=== PATIENT | female | born 1930 | race Caucasian/White ===

== ENCOUNTER 2017-04-26 12:25 | Inpatient (IN) ==
--- NOTE | 2017-04-26 12:40 | Emergency Department Report ---
Neuro HPI - General Stated Complaint: poss stroke Time Seen by Provider: 04/26/17 12:26 - Related Data Home Medications: Home Medications Medication Instructions Recorded Confirmed Multivitamins (Multivitamin) 1 tab PO DAILY #0 06/05/10 07/30/16 Omeprazole Magnesium [Prilosec Otc] 20 mg PO DAILY #0 06/05/10 07/30/16 Levothyroxine Sodium 25 mcg PO HS #0 02/08/16 07/30/16 Loratadine [Allergy] 10 mg PO DAILY #0 02/08/16 07/30/16 Sertraline HCl 100 mg PO HS #0 02/08/16 07/30/16 Acetaminophen 650 mg PO Q4H PRN 07/30/16 07/30/16 Lisinopril [Prinivil] 10 mg PO DAILY 07/30/16 07/30/16 Melatonin 5 mg Tablet 5 mg PO HS PRN 07/30/16 07/30/16 Oxycodone/Acetaminophen 5/325 1 tab PO Q4H PRN 07/30/16 07/30/16 [Percocet 5/325] Propranolol 40 mg PO BID 07/30/16 07/30/16 Triamcinolone 1 spray EA NOSTRIL DAILY 07/30/16 07/30/16 Allergies/Adverse Reactions: Allergies Allergy/AdvReac Type Severity Reaction Status Date / Time Sulfa (Sulfonamide AdvReac Unknown NAUSEA Verified 02/08/16 20:46 Antibiotics) Disposition Prescriptions: No Action Omeprazole Magnesium [Prilosec Otc] 20 mg PO DAILY #0 Sertraline HCl 100 mg PO HS #0 Levothyroxine Sodium 25 mcg PO HS #0 Propranolol 40 mg PO BID Triamcinolone 1 spray EA NOSTRIL DAILY Oxycodone/Acetaminophen 5/325 [Percocet 5/325] 1 tab PO Q4H PRN PRN Reason: Pain Multivitamins (Multivitamin) 1 tab PO DAILY #0 Loratadine [Allergy] 10 mg PO DAILY #0 Lisinopril [Prinivil] 10 mg PO DAILY Melatonin 5 mg Tablet 5 mg PO HS PRN PRN Reason: Insomnia Acetaminophen 650 mg PO Q4H PRN PRN Reason: Pain Referrals: Drew Pereira MD [Family Provider] -
--- NOTE | 2017-04-26 12:43 | CT Scan Report ---
Indication: poss stroke CT head/brain wo con: Comparison: 07/30/2016 CT head without contrast Technique: Patient scanned without contrast utilizing dose reduction imaging technology with brain and bone window evaluation provided. Findings: Patient shows generalized atrophy and deep white matter changes similar to the previous study. No acute findings such as hemorrhage, midline shift or mass effect appreciated. No bony skull fractures are seen. Visualized sinuses and mastoids are unremarkable. Impression: 1. Generalized atrophy and deep white matter changes with no findings suggestive of hemorrhage, midline shift or mass. 2. Findings were immediately called as a critical result to the ER clinician at 12:39 PM on 04/26/2017 .
--- OUTSIDE RECORDS SUMMARY | 2017-04-26 12:43 | External Medical Summary | Continuity of Care Document ---
:1930 Author Organization [facility] Team Providers Name Role Phone [employer] Unavailable Unavailable Problems Problem Status Onset Classification Date Comments Source Date Reported Strain of Diagnosis 07/19/2016 [facility] adductor 7 [facility] muscle, fascia AT and tendon of [place] unspecified MEDICAL thigh, initial [facility]ENTER encounter Strain of Diagnosis 07/17/2016 [facility] muscle, fascia 7 [facility] and tendon of AT right hip, [place] initial MEDICAL encounter [facility]ENTER Medications Medication Details Route Status Patient Ordering Order Source Instructions Provider Date Triamcinolone Active [facility] Acetonide 0.055 2 Mccoll, Q24H, NASAL, Maintenance, 07/16/16 13:01:10 CDT, 0 Number of Refills [facility] MG/ACTUAT AT Metered Dose [place] Nasal [facility]ENTER sertraline 100 Active [facility] mg oral tablet 1 Tab, AT BEDTIME, PO, 0 Number of Refills [facility] propranolol Active [facility] 40 mg, BID, PO, 0 Number of Refills [facility] omeprazole Active [facility] 20 mg, Q24H, PO, 0 Number of Refills [facility] Milk of Magnesia Active [facility] 10 mL, AT BEDTIME, PO, Maintenance, 07/16/16 12:59:46 CDT, 0 Number of Refills [facility] lisinopril Active [facility] 10 mg, Q24H, PO, 0 Number of Refills [facility] Melatonin Active [facility] 5 mg, AT BEDTIME, PO, 0 Number of Refills [facility] levothyroxine Active [facility] 25 mcg, Q24H, PO, 0 Number of Refills [facility] Acetaminophen Active [facility] 325 MG / 1 Tab, Q6H, PO, Maintenance, PRN, 07/16/16 12:57:55 CDT, 0 Number of Refills, 0, as needed for pain [facility] Hydrocodone AT Bitartrate 5 MG [place] Oral Tablet MEDICAL [Norden 5/325] [facility]ENTER Centrum Active [facility] Women's 1 Tab, Q24H, PO, Maintenance, 07/16/16 12:57:28 CDT, 0 Number of Refills [facility] OsCal 500 oral Active [facility] tablet, chewable 1 Tab, Q24H, PO, 0 Number of Refills [facility] loratadine Active [facility] 10 mg, Q24H, PO, 0 Number of Refills [facility] acetaminophen Active [facility] 650 mg, Q4H, PO, PRN, 0 Number of Refills, as needed for pain [facility] predniSONE 20 mg Active [facility] oral tablet 1 Tab, Q24H, PO, taper, 0 Number of Refills [facility] Allergies, Adverse Reactions, Alerts Substance Category Reaction Severity Reaction Status Date Comments Source type Reported sulfa drugs Assertion Drug [facility] allergy [facility] Results Order Name Results Value Reference Date Interpretation Comments Source Range ED Patient ED Patient [facility] 07/18 [facility] Discharge Discharge Life Instructions [place] [address] Aftercare Instructions to the Patient Name: JODY IBARRA Current Date: 07/18/2016 14:14:08 : 1930 12:00 AM [facility]: [id number] Chief Complaint: Leg pain-swelling Visit Date: 07/18/2016 10:55 AM Primary Care Provider: Name: Not, Listed Phone: [facility] would like to thank you for allowing us to assist you with your healthcare needs. The following includes patient education materials and information regarding your injury/illness. An Emergency Department visit is not capable of addressing all the unique aspects of an individual𒍏s healthcare. It is intended to address immediate and life-threatening concerns. Emergency Depar tment visits do not take the place of routine physical examinations or follow-up examinations by a primary care physician. In addition, medical problems may not be apparent, diagnosed, or treated prior to being released from the Emergency Department. Your initial radiology reading may have been done by an Emergency Physician and is a preliminary interpretation to expedite your care. A radiologist reviews all x-rays within 24 hours. Culture results w ill be ready in 2-4 days. If final radiology or lab test results indicate a need for further treatment, we will attempt to contact you or your physician. Every medication may cause side effects. If medications were prescribed to you, finish all prescriptions as instructed even if you feel better. If you experience a side effect, notify your physician, constance, or return to the Emergency Department. Alcohol may interfere with the medication prescribed. Follow the instructions given by the pharmacy that fills your prescription. If you were given medic ations that may cause drowsiness do not drive, operate heavy equipment, or perform duties that require you to be alert. Please call tomorrow or the next available for an appointment in the specified timeframe. If you do not have a primary care provider, or your provider is unavailable , please contact the [facility] [place] to assist you in making an appointment. Visit [email or web address] to see your health information, physician notes, helpful videos, your bill, and other information online. Follow-up Instructions: Medication Changes: Tests and Procedures You had laboratory and radiology tests performed during your stay. Patient Education: Name: JODY IBARRA Current Date: 07/18/2016 14:14:08 : 1930 12:00 AM [facility]: [id number] Current Medication List: 𐗋 Keep your Medication List with you in case of emergency. 𐖹 Update your medication list with any changes. 㙷 Include Aexr-Tpc-Galpcga and Herbal medications. acetaminophen Possible Brand Name(s): Tylenol 650 mg, Oral, Every 4 hours, as needed for pain, 0 Refills Centrum Women's Generic Medication Name: multivitamin with minerals 1 Tab, Oral, Every 24 hours, 0 Refills levothyroxine Possible Brand Name(s): Levoxyl, Synthroid 25 mcg, Oral, Every 24 hours, 0 Refills lisinopril Possible Brand Name(s): Prinivil, Zestril 10 mg, Oral, Every 24 hours, 0 Refills loratadine Possible Brand Name(s): Alavert, Claritin 10 mg, Oral, Every 24 hours, 0 Refills Melatonin Generic Medication Name: melatonin 5 mg, Oral, At bedtime, 0 Refills Milk of Magnesia Generic Medication Name: magnesium hydroxide 10 mL, Oral, At bedtime, 0 Refills Norden 5 mg-325 mg oral tablet Generic Medication Name: acetaminophen-hydrocodone 1 Tab, Oral, Every 6 hours, as needed for pain, 0 Refills Norden 5 mg-325 mg oral tablet Generic Medication Name: acetaminophen-hydrocodone 1 Tab, Oral, Every 4 hours, as needed, for pain, 24 Tab, 0 Refills omeprazole Possible Brand Name(s): Prilosec 20 mg, Oral, Every 24 hours, 0 Refills OsCal 500 oral tablet, chewable Generic Medication Name: calcium carbonate 500 mg, Oral, Every 24 hours, 0 Refills predniSONE 20 mg oral tablet 20 mg, Oral, Every 24 hours, taper, 0 Refills propranolol 40 mg, Oral, 2 times a day, 0 Refills sertraline 100 mg oral tablet Possible Brand Name(s): Zoloft 100 mg, Oral, At bedtime, 0 Refills triamcinolone 55 mcg/inh nasal spray Generic Medication Name: triamcinolone nasal 2 Mccoll, Nasal, Every 24 hours, 0 Refills Please bring this list to your next provider(s) visit. Update your medication list when any medications are stopped, doses are changed or new medications are added. Add any over the counter medications, vitamins or herbals to your list. Carry this medication list with you at all times so in the event of an emergency situation your Provider or Nurse can provide you with the best and safest care. Patient Visit Summary JODY IBARRA has been given the following list of patient education materials, prescriptions and follow-up instructions: Follow-up Instructions: Tests and Procedures You had laboratory and radiology tests performed during your stay. Patient Education Materials: I, JODY IBARRA, hereby acknowledge receipt of the instructions indicated above. I will arrange for followup care as indicated above. I understand that if my condition worsens or new symptoms appea r, I should contact my private physician immediately. If I am unable to reach my private physician, I understand that I should return promptly to the [facility]. I acknowledge receipt of all personal possessions brought to the Emergency Department with me. Patient: Date: Time: Witness: Date: Time: To request an electronic copy of your discharge instructions, Please contact [facility] [employer] at [phone]. Hours are Wednesday through Wednesday 8am to 5pm. 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 Time seen: Immediately upon arrival. History source: Patient, family. Arrival mode: Private vehicle. Additional information: Reason for Visit Additional Info: R leg pain. States that she had xrays yesterday pain is not improving. Onset of Symptoms: Wednesday . History of Present Illness The patient presents with lower extremity pain, pt to ER with daughter reporting increasing and persistent pain R groin radiating to anteiolateral thigh. States pain is so severe unable to bear weight . Daughter reports found pt on floor today as she tried to take a step getting out of bed and fell to floor due to pain. - Reports no groin or thigh pain at rest. States pain hurts with general movemen t of leg while in bed and much worse with weightbearing especially in groin. Daughter reports pt unable to Relates pain started after crawling in yard 6 days ago doing gardening work. Seen in ER for same 2 days ago - US-DVT, x ray of hip and thigh completed and negative. Pt states she has been at for hemorhragic stroke X 2 for past 2 weeks - recently released June 20 with minimal L sided residual weakness. States has been taking large doses of steroids for same with last dose 2 days ago. - Denies fevers, voiding without difficulty and See at by neurologist for same - MRI is ordered of low back but not scheduled per pt daughter . The course/duration of symptoms is constant and worsening. Type of injury: fall and twisting. Location: Right leg groin. The character of symptoms is pain, no swelling , not tingling and not numbness. The degree at present is no pain at rest, severe pain with weightbearing. Exacerbating factor s consist of movement, weight bearing chronic back pain. The relieving factor is none. Prior episodes: none. Therapy today: prescription medications including Norden 7.5. Associated symptoms: back pa in, denies fever, denies rash, denies edema, denies chest pain and denies shortness of breath. Review of Systems Constitutional symptoms: No fever, Skin symptoms: No rash, ENMT symptoms: No ear pain, no sore throat, no nasal congestion. Respiratory symptoms: No shortness of breath, no cough. Cardiovascular symptoms: No chest pain, Gastrointestinal symptoms: No abdominal pain, Genitourinary symptoms: No dysuria, Musculoskeletal symptoms: Back pain, Muscle pain, Joint pain, groin pain, back pain - intermittant, chronic, minimal back discomfort this past week. BAck pain not worse today , minimal L sided weakness post stroke-improving over past 10 days . Neurologic symptoms: No headache, Health Status Allergies: Allergic Reactions (Selected) Severity Not Documented Sulfa drugs- No reactions were documented.. Medications: Prescription / Home Medications: acetaminophen 650 mg, Oral, Every 4 hours, as needed for pain Centrum Women's 1 Tab, Oral, Every 24 hours levothyroxine 25 mcg, Oral, Every 24 hours lisinopril 10 mg, Oral, Every 24 hours loratadine 10 mg, Oral, Every 24 hours Melatonin 5 mg, Oral, At bedtime Milk of Magnesia 10 mL, Oral, At bedtime Norden 5 mg-325 mg oral tablet 1 Tab, Oral, Every 6 hours, as needed for pain Norden 5 mg-325 mg oral tablet 1 Tab, Oral, Every 4 hours, as needed, for pain omeprazole 20 mg, Oral, Every 24 hours OsCal 500 oral tablet, chewable 500 mg, Oral, Every 24 hours predniSONE 20 mg oral tablet 20 mg, Oral, Every 24 hours propranolol 40 mg, Oral, 2 times a day sertraline 100 mg oral tablet 100 mg, Oral, At bedtime triamcinolone 55 mcg/inh nasal spray 2 Mccoll, Nasal, Every 24 hours Medications Administered this Visit Decadron (dexamethasone) , 10 mg, IM, X 1 DOSE Dilaudid (hydromorphone) , 0.2 mg, IM, X 1 DOSE . Past Medical/ Family/ Social History Medical history Endocrine: hypothyroid. Neurological: cerebral vascular accident. Surgical history: Surgical history No active procedure history items have been selected or recorded.. Family history: Reviewed as documented in chart. Social history: Reviewed as documented in chart, Occupation: Unemployed, Family/social situation: Lives alone, staying with daughter currently since strokes 1 mo ago . Problem list: No problem items selected or recorded.. Physical Examination Vital Signs Dt/Tm Temp BP Pulse RR SAO2 O2 MAP 07/18 11:15 36.8 194/82 82 16 92 - - . Oxygen Saturation 07/18/2016 11:15 CDT Oxygen Saturation 92 % . General: No acute distress. Skin: Warm, dry, pink, intact, no pallor, no rash. Head: Normocephalic, atraumatic. Neck: Supple, no tenderness. Eye: Normal conjunctiva. Ears, nose, mouth and throat: Oral mucosa moist. Cardiovascular: Regular rate and rhythm. Respiratory: Lungs are clear to auscultation, respirations are non-labored , breath sounds are equal, Symmetrical chest wall expansion. Chest wall: No deformity. Back: Normal alignment, mild diffuse lumbar ttp - . Musculoskeletal: No swelling, no deformity, RLE warm, pink- no obvious redness or swelling. R groin and anterolateral thigh with minimal tenderness to palplation. Pain reproduced in this area with le g movement- particularly in groin area. Rresists motion of leg due to pain in this area w/ movment of ext. Distal ext without redness or swelling. R knee with chronic bruising discoloration for past several mo related to remote fall - this is chronic and unchanged. No pain in knee, ankle or foot witih motio n joint motion but reports pain in groin area in attempt to move lower joints for assess. - Sensation of RLE intact through toes. Wiggles all toes to command. Appropriate strength against resistance of RLE which produces pain in R groin and thigh. DP fully palpable at +4/4- . Gastrointestinal: Soft, Nontender, Non distended, Normal bowel sounds. Neurological: No focal neurological deficit observed, CN II-XII intact, normal sensory observed, normal motor observed, normal speech observed, normal coordination observed. Lymphatics: No lymphadenopathy. Psychiatric: Cooperative. Medical Decision Making Differential Diagnosis: groin strain, occult fx of hip. . Documents reviewed: Emergency department records, prior records, US-Vein dopper 07/16 neg for DVT. R hip- neg for acute changes , Lumbar x ray 2016 There is levoscoliosis of the lumbar spine with multilevel compression deformities appreciated. There is most pronounced at the presumptive T11 level where there is moderate loss of vertebral body heig ht. There is also slight narrowing of the T12 vertebral body superior endplate and of the L3 vertebral body. The acuity of these fractures is indeterminate and quite possibly chronic. There is diffus e lumbar spondylosis with disk space narrowing most pronounced at L2-3. Diffuse facet arthropathy. Baastrup phenomenon is also appreciated. There is no compelling evidence of spondylolysis or spondylolisthesis. There is, however, also grade 1 left lateral listhesis of L3 on L4. IMPRESSION: 1. Compression deformities of the lower thoracic spine, age indeterminate. 2. Levoscoliosis of the lumbar spine. Signature Line Final Report Dictated By: Destin Briseno, Dictated Dt/tm: 07/16/2016 13:23 . Electrocardiogram: No EKG documents found.. Results review: Lab results from flowsheet : Lab View 07/18/2016 11:49 CDT WBC 9.1 x10^3/uL RBC 4.45 x10^6/uL Hgb 12.8 gm/dL Hct 37.8 % MCV 85 fL MCH 28.8 pg MCHC 33.9 gm/dL RDW 13.8 % Platelet 277 x10^3/uL Total Protein 6.6 gm/dL Albumin Level 3.2 gm/dL LOW Calcium 8.4 mg/dL LOW Corrected/Adjusted Ca 9.0 mg/dL Bili Total 0.6 mg/dL Alk Phos 59 U/L Sodium 138 mmol/L Potassium 3.8 mmol/L Chloride 105 mmol/L TCO2 (Bicarbonate) 27 mmol/L AGAP 6 LOW Glucose Level 108 mg/dL HI BUN 20 mg/dL Creatinine 0.84 mg/dL eGFR >60 mL/min eGFR () >60 mL/min ALT/GPT 20 U/L AST/GOT 20 U/L C Reactive Prot 5.64 mg/dL HI . Radiology results: Computed tomography, R hip- no acute fx or changes per rad. Reexamination/ Reevaluation Time: 07/18/2016 12:39:00 . Course: improving. Pain status: decreased. Assessment: pt is painfree in R groin and thigh at rest. Pain is elicited with RLE motion/worse with weightbearing. NV assess RLE intact- Lumbar x rays, DVT assess RLE, R hip x ray of July 16 without ac [place] changes and neg for DVT. Today, , CT of hip w/o contrast does not demonstrate acute changes. In light of no pain at rest in hip or groin, , no change in minimal back pain, N/V assess RLE WNL, DVT assess R leg veins negative, hip and lumbar x ray negative, it is reasonable to attribute pain to groin strain with radiation of pain to thigh. Pain started after pt was crawling in yard the day before pain started- 6 days ago. Pt has minimal back pain - chronic in nature and not worse today. D/W her that muscle strain, particularly of groin, can be quite umcomfortable and take 2-6 weeks to improve. Safety precautions reviewed with pt and daughter who will be helping pt at home. Advised pain would improve over time - if pain not improving and getting worse over next week to follow up with PCP - /neuro at has scheduled MRI to check pt lumbar back - Pt had scheduled appt with her neurologist post stroke 3 days ago and advised him of her groin and leg pain. MRI was ordered of low back . Pt has yet to set this MRI appt but daughter reports they intend to follow through with this. Pt has had modest pain relief with pain meds. Additional meds given for residual groin pain.- Home care regarding groin/muscle strain reviewed. RTER precautions also reviewed, Pt and daughter had no qu estions, agreed with tx and plan to follow up as needed.. Impression and Plan Groin strain ([id number] S76.219A, Discharge, Medical) Plan Disposition: Discharged: Time 07/18/2016 14:30:00, to home. Prescriptions: Orders Pharmacy: predniSONE 20 mg oral tablet (Prescribe): See Instructions, 2 tabs po daily X 2 days then today-then 1 tab daily for next 5 days with food, 9 Tab, 0 Refill(s) oxycodone 5 mg oral capsule (Prescribe): 1 Cap, PO, Q6H, PRN: for pain, 7 Cap, 0 Refill(s). Patient was given the following educational materials: GROIN STRAIN, MUSCLE STRAIN, Extremity, MUSCLE STRAIN, Extremity, GROIN STRAIN. Follow up with: Dr. Gregory HE Within 1 to 2 weeks, only if needed Moist heat, gentle massage to R groin area to help alleviate comfort Begin Colace 2 times daily according to package directions while taking pain medications Return to ER if onset of fevers or other new and concerning symptom or other concerns May use walker as able for waking support - Do not attempt to walk or get out of bed without assistance. . Counseled: Patient, Family, Regarding diagnosis, Regarding diagnostic results, Regarding treatment plan, Patient indicated understanding of instructions. Emergency Medical Treatment and Active Labor Act/Prudent layperson: Emergency Medical Treatment and Active Labor Act determined emergency medical care:: yes, Stability status: stable for discharge. CHEM12 eGFR ( >60 >=60 05/20 N Estimated GFR for an calculated using MDRD study equation. Result Verified by Discern Expert. [facility] [place]) mL/min /2017 [facility] CHEM12 eGFR >60 >=60 05/20 N Estimated eGFR Non calculated using MDRD study equation Result Verified by Discern Expert. [facility] mL/min /2017 The MDRD GFR formula is valid only for adults between 18 and 85 years of age. [facility] CHEM12 Alk Phos 59 U/L 43 - 134 05/20 N [facility] /2017 [facility] CHEM12 Bili Total 0.6 mg/dL 0.2 - 1.2 07/18 N [facility] CHEM12 AST/GOT 20 U/L 7 - 39 07/18 N [facility] CHEM12 Creatinine 0.84 mg/dL 0.40 - 07/18 N [facility] 1.10 /2016 [facility] CHEM12 Total Protein 6.6 gm/dL 6.6 - 8.3 07/18 N [facility] CHEM12 ALT/GPT 20 U/L 14 - 76 07/18 N [facility] CRP C Reactive 5.64 mg/dL 0.00 - 07/18 HI [facility] Prot 0.90 /2017 [facility] CHEM12 Chloride 105 mmol/L 95 - 109 07/18 N [facility] CHEM12 BUN 20 mg/dL 7 - 23 07/18 N [facility] CHEM12 Potassium 3.8 mmol/L 3.5 - 5.0 07/18 N [facility] CHEM12 TCO2 27 mmol/L 21 - 30 07/18 N [facility] (Bicarbonate) [facility] CHEM12 Albumin Level 3.2 gm/dL 3.4 - 5.0 07/18 LOW [facility] CHEM12 Calcium 8.4 mg/dL 8.5 - 10.1 07/18 LOW [facility] CHEM12 Sodium 138 mmol/L 135 - 145 07/18 N [facility] CHEM12 Glucose Level 108 mg/dL 60 - 99 07/18 HI [facility] CT Hip Rt CT Hip Rt W/O 07/18 [facility] W/O Contrast Contrast [facility] CT CT JODY IBARRA 07/18 Final Report [facility] Reconstructi Reconstructio Dictated By: Daniel Daly MD Life on n CT RIGHT HIP WITHOUT CONTRAST Dictated Dt/tm: 07/18/2016 12:45 Care Signed By: Daniel Daly MD CT RECONSTRUCTION Signed Dt/tm: 07/18/2016 14:05 Transcribed By: CROW Transcribed Dt/tm: 07/18/2016 13:41 INDICATION: Recent fall, continued pain. Noncontrast axial images of the right hip have been obtained. The bone density is diminished. There is no destruction. There is no displaced fracture. There is no dislocation. If pain continues MR may be of benefit. IMPRESSION: No displaced fracture identified involving the right hip. Clinical History CT Hip Rt w/o Contrast: Current History Increasing Rt. groin pain radiating down Rt. thigh x 5 days , No known injury, Can not bear weight on Rt. leg Previous History/Surgery Rt hip xrays [address] Dose Statement All CT scans at this facility use dose modulation, iterative reconstruction, and/or weight based dosing when appropriate to reduce radiation dose to as low as reasonably achievable. CT Reconstruction: Current History Increasing Rt. groin pain radiating down Rt. thigh x 5 days , No known injury, Can not bear weight on Rt. leg Previous History/Surgery Rt hip xrays [address] Dose Statement All CT scans at this facility use dose modulation, iterative reconstruction, and/or weight based dosing when appropriate to reduce radiation dose to as low as reasonably achievable. CBC (NO Hgb 12.8 gm/dL 12.0 - 05/20 N [facility] DIFFERENTIAL 16.0 /2016 [facility] CBC (NO Platelet 277 150 - 400 /20 N [facility] DIFFERENTIAL x10^3/uL /2016 [facility] CBC (NO WBC 9.1 4.0 - 10.8 /20 N [facility] DIFFERENTIAL x10^3/uL /2016 [facility] CBC (NO RDW-SD 43 07/18 NA [facility] DIFFERENTIAL /2016 [facility] CBC (NO MCH 28.8 pg 27.0 - 05 N [facility] DIFFERENTIAL 31.0 /2016 [facility] CBC (NO Hct 37.8 % 35.0 - 05/20 N [facility] DIFFERENTIAL 45.0 /2016 [facility] CBC (NO MPV 9.0 5.0 - 30.0 /20 N [facility] DIFFERENTIAL /2016 [facility] CBC (NO RBC 4.45 4.20 - 05/20 N [facility] DIFFERENTIAL x10^6/uL 5.40 /2016 [facility] CBC (NO RDW 13.8 % 11.7 - 0520 N [facility] DIFFERENTIAL 16.0 /2016 [facility] CBC (NO MCHC 33.9 gm/dL 31.0 - 0520 N [facility] DIFFERENTIAL 36.5 /2016 [facility] CBC (NO Platelet 10 /20 NA [facility] DIFFERENTIAL clumps /2016 [facility] CBC (NO MCV 85 fL 79 - 100 /20 N [facility] DIFFERENTIAL /2016 [facility] DX Knee Rt 3 DX Knee Rt 3 JODY IBARRA 0520 Final Report [facility] View View /2016 Dictated By: Daniel Daly MD Life RIGHT KNEE 3 VIEWS Dictated Dt/tm: 07/18/2016 11:56 Care Signed By: Daniel Daly MD Signed Dt/tm: 07/18/2016 13:34 Transcribed By: CROW INDICATION: The patient fell, pain. Transcribed Dt/tm: 07/18/2016 13:31 Three views of the right knee demonstrate maintained bone density. There is no destruction or fracture. There is no dislocation. There is no abnormal joint effusion. There is mild narrowing of the medial joint space. There is chondrocalcinosis. IMPRESSION: Degenerative changes. There is no fracture. Clinical History Current History pt fell back in dec, has groin pain that brought her to the er yesterday but has not been able to walk for past few days, pt still has bruising on medial side of right knee Previous History/Surgery no prev ED Patient ED Patient [facility] 07/16 [facility] [address] [facility] Discharge Discharge Life Instructions [place] [address] Aftercare Instructions to the Patient Name: JODY IBARRA Current Date: 07/16/2016 16:10:18 : 1930 12:00 AM Chief Complaint: Leg pain-swelling, Leg pain-swelling Visit Date: 07/16/2016 11:54 AM Primary Care Provider: Name: Not, Listed Phone: [facility] would like to thank you for allowing us to assist you with your healthcare needs. The following includes patient education materials and information regarding your injury/illness. An Emergency Department visit is not capable of addressing all the unique aspects of an individual𕎰s healthcare. It is intended to address immediate and life-threatening concerns. Emergency Depar tment visits do not take the place of routine physical examinations or follow-up examinations by a primary care physician. In addition, medical problems may not be apparent, diagnosed, or treated prior to being released from the Emergency Department. Your initial radiology reading may have been done by an Emergency Physician and is a preliminary interpretation to expedite your care. A radiologist reviews all x-rays within 24 hours. Culture results w ill be ready in 2-4 days. If final radiology or lab test results indicate a need for further treatment, we will attempt to contact you or your physician. Every medication may cause side effects. If medications were prescribed to you, finish all prescriptions as instructed even if you feel better. If you experience a side effect, notify your physician, ashley nolasco, or return to the Emergency Department. Alcohol may interfere with the medication prescribed. Follow the instructions given by the pharmacy that fills your prescription. If you were given medic ations that may cause drowsiness do not drive, operate heavy equipment, or perform duties that require you to be alert. Please call tomorrow or the next available business day for an appointment in the specified timeframe. If you do not have a primary care provider, or your provider is unavailable , please contact the [facility] [place] to assist you in making an appointment. Visit [email or web address] to see your health information, physician notes, helpful videos, your bill, and other information online. Follow-up Instructions: With: Address: When: Claudio Avendaño MD [address] [facility];[address] [place] [id number]; Business (1); within 1 to 3 days Comment: Your appointment has not been made Return if worsening Medication Changes: Medication Changes New Norden 5 mg-325 mg oral tablet, 1 Tab, Oral, Every 4 hours, as needed for pain Tests and Procedures You had radiology tests performed during your stay. Patient Education: Muscle Strain,Extremity A MUSCLE STRAIN is a stretching and tearing of muscle fibers. This causes pain, especially with motion of that muscle. There may also be some swelling and bruising. Home Care: 1) Keep the injured area raised to reduce pain and swelling. This is especially important during the first 48 hours. 2) Make an ice pack (ice cubes in a plastic bag, wrapped in a towel) and apply for 20 minutes every 1-2 hours the first day. You should continue with ice packs 3-4 times a day for the second and third d ays. Unless otherwise instructed, on the fourth day you may begin hot soaks or hot packs (small towel soaked in hot water) 3-4 times a day while you gently exercise the involved area. 3) You may use acetaminophen (Tylenol) or ibuprofen (Motrin, Advil) to control pain, unless another medicine was prescribed. [ NOTE : If you have chronic liver or kidney disease or ever had a stomach ul cer or GI bleeding, talk with your doctor before using these medicines.] 4) For LEG STRAINS: If CRUTCHES have been recommended, do not bear full weight on the injured leg until you can do so without pain. You may return to sports when you are able to hop and run on the injured leg without pain. Follow Up with your doctor or this facility if you are not improving within the next five days. Get Prompt Medical Attention if any of the following occur: -- Fingers or toes become swollen, cold, blue, numb or tingly -- Pain or swelling increases 𕉑 [id number] [employer]. [address] [place] [address]. All rights reserved. This information is not intended as a substitute for professional medical care. Always follo w your healthcare professional's instructions. Name: STACEY JODY Current Date: 07/16/2016 16:10:18 : 1930 12:00 AM Current Medication List:  Keep your Medication List with you in case of emergency. 𓿯 Update your medication list with any changes. 𒷽 Include Ppnk-Cgy-Nlqibtg and Herbal medications. acetaminophen Possible Brand Name(s): Tylenol 650 mg, Oral, Every 4 hours, as needed for pain, 0 Refills Centrum Women's Generic Medication Name: multivitamin with minerals 1 Tab, Oral, Every 24 hours, 0 Refills levothyroxine Possible Brand Name(s): Levoxyl, Synthroid 25 mcg, Oral, Every 24 hours, 0 Refills lisinopril Possible Brand Name(s): Prinivil, Zestril 10 mg, Oral, Every 24 hours, 0 Refills loratadine Possible Brand Name(s): Alavert, Claritin 10 mg, Oral, Every 24 hours, 0 Refills Melatonin Generic Medication Name: melatonin 5 mg, Oral, At bedtime, 0 Refills Milk of Magnesia Generic Medication Name: magnesium hydroxide 10 mL, Oral, At bedtime, 0 Refills Norden 5 mg-325 mg oral tablet Generic Medication Name: acetaminophen-hydrocodone 1 Tab, Oral, Every 6 hours, as needed for pain, 0 Refills Norden 5 mg-325 mg oral tablet Generic Medication Name: acetaminophen-hydrocodone 1 Tab, Oral, Every 4 hours, as needed, for pain, 24 Tab, 0 Refills, Printed omeprazole Possible Brand Name(s): Prilosec 20 mg, Oral, Every 24 hours, 0 Refills OsCal 500 oral tablet, chewable Generic Medication Name: calcium carbonate 500 mg, Oral, Every 24 hours, 0 Refills predniSONE 20 mg oral tablet 20 mg, Oral, Every 24 hours, taper, 0 Refills propranolol 40 mg, Oral, 2 times a day, 0 Refills sertraline 100 mg oral tablet Possible Brand Name(s): Zoloft 100 mg, Oral, At bedtime, 0 Refills triamcinolone 55 mcg/inh nasal spray Generic Medication Name: triamcinolone nasal 2 Mccoll, Nasal, Every 24 hours, 0 Refills Please bring this list to your next provider(s) visit. Update your medication list when any medications are stopped, doses are changed or new medications are added. Add any over the counter medications, vitamins or herbals to your list. Carry this medication list with you at all times so in the event of an emergency situation your Provider or Nurse can provide you with the best and safest care. Patient Visit Summary JODY IBARRA has been given the following list of patient education materials, prescriptions and follow-up instructions: Follow-up Instructions: With: Address: When: Claudio Avendaño MD [address] [facility];[address] [facility] [address]; Business (1); within 1 to 3 days Comment: Your appointment has not been made Return if worsening Tests and Procedures You had radiology tests performed during your stay. Patient Education Materials: MUSCLE STRAIN, Extremity Medication Changes New Norden 5 mg-325 mg oral tablet, 1 Tab, Oral, Every 4 hours, as needed for pain I, JODY IBARRA, hereby acknowledge receipt of the instructions indicated above. I will arrange for followup care as indicated above. I understand that if my condition worsens or new symptoms appea r, I should contact my private physician immediately. If I am unable to reach my private physician, I understand that I should return promptly to the [facility]. I acknowledge receipt of all personal possessions brought to the Emergency Department with me. Patient: Date: Time: Witness: Date: Time: To request an electronic copy of your discharge instructions, Please contact [facility] [employer] at [phone]. Hours are Wednesday through Wednesday 8am to 5pm. DX Femur Rt DX Femur Rt IBARRA, JODY 07/16 Final Report [facility] /2016 Dictated By: Alex Gerber MD Life RIGHT FEMUR Dictated Dt/tm: 07/16/2016 13:26 Care Signed By: Alex Gerber MD Signed Dt/tm: 07/16/2016 15:21 Transcribed By: RRNigel INDICATION: Right leg pain. Transcribed Dt/tm: 07/16/2016 14:14 FINDINGS: There are mild osteoarthritic changes of the right hip. No acute fracture or dislocation. No significant joint effusion within the knee. Mild osteoarthritic changes within the patellofemoral compartment. IMPRESSION: Mild osteoarthritic changes. Clinical History Current History right leg pain Previous History/Surgery n/a DX Hip Rt 2 DX Hip Rt 2 JODY IBARRA 07/16 Final Report [facility] View View /2016 Dictated By: Alex Gerber MD Life RIGHT HIP 2 VIEWS Dictated Dt/tm: 07/16/2016 13:24 Care Signed By: Alex Gerber MD Signed Dt/tm: 07/16/2016 15:21 Transcribed By: CROW INDICATION: Pain since Wednesday. Transcribed Dt/tm: 07/16/2016 14: 14 FINDINGS: No acute fracture or dislocation. Mild osteoarthritic changes at the hips. No significant diastasis involving the sacroiliac joints or symphysis pubis. IMPRESSION: Mild osteoarthritis. Followup with an MRI as clinically indicated. Clinical History Current History right leg pain since wednesday Previous History/Surgery n/a DX Lumbar DX Lumbar JODY IBARRA 07/16 Final Report [facility] Spine Spine /2016 Dictated By: Destin Briseno DO Life Complete Complete LUMBAR SPINE Dictated Dt/tm: 07/16/2016 13:23 Care Signed By: Destin Briseno DO DATE: 07/16/2016 Signed Dt/tm: 07/16/2016 14:51 Transcribed By: EVELYN Transcribed Dt/tm: 07/16/2016 14:13 INDICATION: Low back pain since Wednesday. COMPARISON: None. FINDINGS: AP, lateral, bilateral oblique, and coned-down lateral lumbar spine views were obtained. There is levoscoliosis of the lumbar spine with multilevel compression deformities appreciated. There is most pronounced at the presumptive T11 level where there is moderate loss of vertebral body heig ht. There is also slight narrowing of the T12 vertebral body superior endplate and of the L3 vertebral body. The acuity of these fractures is indeterminate and quite possibly chronic. There is diffus e lumbar spondylosis with disk space narrowing most pronounced at L2-3. Diffuse facet arthropathy. Baastrup phenomenon is also appreciated. There is no compelling evidence of spondylolysis or spondylolisthesis. There is, however, also grade 1 left lateral listhesis of L3 on L4. IMPRESSION: 1. Compression deformities of the lower thoracic spine, age indeterminate. 2. Levoscoliosis of the lumbar spine. Clinical History Current History low back pain since wednesday Previous History/Surgery n/a US Duplex US Duplex Leg 07/16 Final [facility] Leg Veins Veins Right /2016 Life Right COLOR DUPLEX DOPPLER ULTRASOUND, RIGHT LOWER EXTREMITY VEINS Care Signed By: Cedric Moseley MD Signed Dt/Tm 07/16/2016 12:54 INDICATION: Right lower extremity pain. Transcribed Dt/Tm: 2016 12:54 No comparisons available. TECHNIQUE: Calles-scale and color Doppler imaging of the right lower extremity veins are performed. FINDINGS: The right comon femoral veins, greater saphenous vein, superficial femoral vein, popliteal vein and visualized calf veins are patent with normal color Doppler flow and compressibility. No soft tissue mass or fluid collection is identified. IMPRESSION: No evidence of right lower extremity femoral/popliteal deep venous thrombosis. 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 Time seen: Date & time 07/16/2016 12:26:00. History source: Patient, family. Arrival mode: Private vehicle. History limitation: None. Additional information: Reason for Visit Additional Info: right leg pain starting at groin since wednesday. got out of on june 20 after being in hospital 2 wks for 2 hemorragic strokes that were being treatied with high doses of steroids, is tapering off steroids now Onset of Symptoms: wednesday. . History of Present Illness The patient presents with lower extremity pain. The onset was 4 days ago and Wednesday. The course/duration of symptoms is worsening. Type of injury:. Location: Right leg. The character of symptoms is pain. Risk factors consist of hemorrhagic stroke (x2). Associated symptoms: back pain (low), denies dizziness, denies nausea and denies vomiting. Additional history: Patient presents to the ED compl aining of worsening R leg pain that starts at her groin and travels down onset Wednesday after doing some yard work. Patient also complains of low back pain but denies dizziness, nausea, or vomiting. 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 Family state that the patient was admitted at under Dr. Kendrick from the -20 of June where she was di agnosed with beta amyloid angiopathy. Family states patient has been on steroids but has been tapering off of them since the , Wednesday or Wednesday being the last one she took; reports the patient h as been off blood thinners for the past 6 weeks. Review of Systems Gastrointestinal symptoms: No nausea, no vomiting. Musculoskeletal symptoms: Back pain (low), R leg pain. Neurologic symptoms: No dizziness, Additional review of systems information: All other systems reviewed and otherwise negative. Health Status Allergies: Allergic Reactions (Selected) Severity Not Documented Sulfa drugs- No reactions were documented.. Medications: Prescription / Home Medications: acetaminophen 650 mg, Oral, Every 4 hours, as needed for pain Centrum Women's 1 Tab, Oral, Every 24 hours levothyroxine 25 mcg, Oral, Every 24 hours lisinopril 10 mg, Oral, Every 24 hours loratadine 10 mg, Oral, Every 24 hours Melatonin 5 mg, Oral, At bedtime Milk of Magnesia 10 mL, Oral, At bedtime Norden 5 mg-325 mg oral tablet 1 Tab, Oral, Every 6 hours, as needed for pain omeprazole 20 mg, Oral, Every 24 hours OsCal 500 oral tablet, chewable 500 mg, Oral, Every 24 hours predniSONE 20 mg oral tablet 20 mg, Oral, Every 24 hours propranolol 40 mg, Oral, 2 times a day sertraline 100 mg oral tablet 100 mg, Oral, At bedtime triamcinolone 55 mcg/inh nasal spray 2 Mccoll, Nasal, Every 24 hours No inpatient medications found. , per nurse's notes. Immunizations: Per nurse's notes. Past Medical/ Family/ Social History Medical history Reviewed as documented in chart. Surgical history: Surgical history No active procedure history items have been selected or recorded.. Social history: Tobacco use: Denies, Occupation: Retired, Family/social situation: . Problem list: No problem items selected or recorded., per nurse's notes. Physical Examination Vital Signs Dt/Tm Temp BP Pulse RR SAO2 O2 MAP 07/16 12:02 36.4 184/68 63 18 100 - - . Per nurse's notes. Oxygen Saturation 07/16/2016 12:02 CDT Oxygen Saturation 100 % . General: Alert, no acute distress. Skin: Warm, dry. Head: Normocephalic, atraumatic. Neck: Supple, trachea midline, no tenderness. Eye: Pupils are equal, round and reactive to light, extraocular movements are intact, normal conjunctiva, Sclera: not icteric. Ears, nose, mouth and throat: Tympanic membranes clear, oral mucosa moist , no pharyngeal erythema or exudate. Cardiovascular: Regular rate and rhythm, Normal peripheral perfusion. Respiratory: Lungs are clear to auscultation, respirations are non-labored , breath sounds are equal. Gastrointestinal: Soft, Nontender, Non distended. Back: low back tenderness. Musculoskeletal: Normal ROM, no tenderness, Lower extremity: tenderness to R lateral thigh to knee, increased pain with certain movement and motion. Neurological: Alert and oriented to person, place, time, and situation, No focal neurological deficit observed. Psychiatric: Cooperative, appropriate mood & affect. Medical Decision Making Documents reviewed: Emergency department nurses' notes, prior records. Differential Diagnosis: Sprain, strain, fracture. Lumbosacral spine X-ray: Interpretation by radiology, compression deformities of t11 and t12; age indeterminate; degen. Hip x-ray findings no acute changes, Location Right, Interpretation done by The radiologist. Femur x-ray findings No acute changes, Location Right, Interpretation done by The radiologist. Radiology results: Ultrasound, Duplex Leg Veins R, interpretation: No evidence of right lower extremity femoral/popliteal deep venous thrombosis . Notes: After review of the history, physical exam, and diagnostic studies , the following conditions have been counseled. The conditions are derived from a limited patient encounter and may not be all-inclusive. Reexamination/ Reevaluation Time: 07/16/2016 14:59:00 . Vital signs Dt/Tm Temp BP Pulse RR SAO2 O2 MAP 07/16 12:02 36.4 184/68 63 18 100 - - 07/16 13:00 - 150/70 63 - 95 - 92 07/16 13:30 - 133/61 71 - 93 - 80 07/16 13:45 - 147/63 70 - 92 - 81 07/16 14:00 - 158/59 66 - 95 - 84 per nurse's notes Course: well controlled. Notes: I have discussed with the patient, family, and others as appropriate the ancillary data, clinical impression, and the plan. Patient will be discharged to home. Return precautions were discussed w ith the patient and understanding was indicated. 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 Doing better but worked outside in yard and developed pain right lateral thigh with movement. No direct trauma. DVT r/o negative. Right hip , femur and lumbar without acute osseous injury. No fever. No neurological deficits or symptoms. NO headache. Home instructions, Norden for pain and f/u with return precautions. Impression and Plan Strain of right hip and thigh ([id number] S76.011A, Discharge, Emergency medicine, Medical) Plan Condition: Stable. Disposition: Discharged: Time 07/16/2016 15:07:00, to home. Prescriptions: Orders Pharmacy: Norden 5 mg-325 mg oral tablet (Prescribe): 1 Tab, PO, Q4H, PRN: for pain, 24 Tab, 0 Refill(s). Patient was given the following educational materials: MUSCLE STRAIN, Extremity. Follow up with: ; Claudio Avendaño Within 1 to 3 days Your appointment has not been made Return if worsening. Counseled: Patient, Regarding diagnosis, Regarding diagnostic results, Regarding treatment plan, Patient indicated understanding of instructions. Emergency Medical Treatment and Active Labor Act/Prudent layperson: Stability status: stable for discharge, resolved. Notes: Documentation assistance provided by Ashley Belle and Kimmy Shoemaker. I have reviewed the information recorded by Ashley Belle and Kimmy Shoemaker at my direction and the chart has been reviewed and validated by me, Dr. Enamorado.. Encounters Location Location Encounter Encounter Reason Attending ADM DC Status Source Details Type Number For Provider Date Date Visit [facility] Emergency [id number] THIGH Isai Enamorado 07/16 07/16 Active [facility] [address] Health Room PAIN /2016 [facility] Emergency [id number] Isai Enamorado 07/16 07/16 [facility] /2016 [facility] Emergency [id number] LEG Maryann 07/18 07/18 Active [facility] [address] Health Room PAIN/NO [place] /2016 [facility] Emergency [id number] Maryann 07/18 07/18 [facility] [place] /2016 [facility]
--- OUTSIDE RECORDS SUMMARY | 2017-04-26 12:43 | External Medical Summary | Clinical Summary ---
:1930 Author Organization [facility] Address [address] [place] [address] Phone Care Team Providers Name Role Phone Drew Pereira MD Primary Care Provider Source Comments Some departments are not documenting in the electronic medical record. If you do not see the information that you expected, contact Release of Information in the Health Information Management department at [phone] for further assistance in locating additional records.[facility] Allergies Active Allergy Reactions Severity Noted Date Comments Morphine UNKNOWN Low 09/03/2016 Sulfa (Sulfonamide Antibiotics) UNKNOWN Low 06/08/2016 Current Medications Prescription Sig. Disp. Refills Start Date End Date Status levothyroxine Take 25 mcg by Active (SYNTHROID) 25 mcg mouth daily. tablet loratadine (ALLERGY Take 10 mg by mouth Active RELIEF (LORATADINE)) 10 every morning. mg tablet omeprazole DR(+) Take 20 mg by mouth Active (PRILOSEC) 20 mg capsule daily. Delayed release propranolol (INDERAL) 40 Take 40 mg by mouth Active mg tablet twice daily. sertraline (ZOLOFT) 100 Take 100 mg by Active mg tablet mouth at bedtime daily. HYDROcodone/acetaminophe Take 1-2 Tabs by 02/26/2016 Active n (NORCO) 5/325 mg mouth every 6 hours tablet as needed acetaminophen (TYLENOL) Take 650 mg by Active 325 mg tablet mouth every 4 hours as needed for Pain. triamcinolone (NASACORT) Apply 2 Sprays to Active 55 mcg nasal inhaler each nostril as directed daily. wlnzncfq-srb-itap-FA-lut Take 1 Tab by mouth Active ein (CENTRUM SILVER daily. WOMEN) 8 mg iron-400 mcg-300 mcg tab milk of magnesia (CONC) Take 10 mL by mouth Active 2,400 mg/10 mL oral four times daily as suspension needed for Heartburn. lisinopril (PRINIVIL; Take 1 Tab by mouth 90 Tab 3 06/22/2016 Active ZESTRIL) 10 mg tablet daily. calcium Take 1 Tab by mouth 06/22/2016 Active carbonate/vitamin D-3 twice daily. While (OSCAL-500+D) 1250 on prednisone. May mg/200 unit tablet buy over the counter. melatonin 5 mg tab Take 1 Tab by mouth 60 Tab 0 06/22/2016 Active at bedtime daily. prednisone (DELTASONE) Take 1 Tab by mouth 60 Tab 0 06/22/2016 Active 20 mg tablet daily with breakfast. 80 mg x10 days, then 60 mg x3 days, then 40 mg x3 days, then 20 mg x3 days, then 10 mg x3 days mirtazapine (REMERON) 15 Take 7.5 mg by Active mg tablet mouth at bedtime daily. Active Problems Problem Noted Date Cerebral amyloid angiopathy (CODE) 06/15/2016 Family History Medical History Relation Name Comments Diabetes Brother Heart Disease Brother Diabetes Brother Diabetes Father Heart Disease Maternal Grandfather Heart Disease Mother Hypertension Mother Heart Disease Paternal Uncle Tumor Sister malignant tumor of breast Relation Name Status Comments Brother Brother Father Maternal Grandfather Mother Paternal Uncle Sister Social History Tobacco Use Types Packs/Day Years Used Date Never Smoker Smokeless Tobacco: Never Used Tobacco Cessation: Counseling Given: No Alcohol Use Drinks/Week oz/Week Comments No 0 Standard drinks or equivalent 0.0 Sex Assigned at Date Recorded Not on file Last Filed Vital Signs Vital Sign Reading Time Taken Blood Pressure 158/76 09/03/2016 10:12 AM CDT Pulse 59 09/03/2016 10:12 AM CDT Temperature 36.9 C (98.4 F) 06/22/2016 9:20 AM CDT Respiratory Rate - - Oxygen Saturation 97% 06/22/2016 9:20 AM CDT Inhaled Oxygen Concentration - - Weight 52.6 kg (116 lb) 09/03/2016 10:12 AM CDT Height 154.9 cm (5' 1") 09/03/2016 10:12 AM CDT Body Mass Index 21.92 09/03/2016 10:12 AM CDT Plan of Treatment Health Maintenance Due Date Last Done Comments PHYSICAL (COMPREHENSIVE) EXAM 1936 PERTUSSIS VACCINE 1940 TETANUS VACCINE 1946 SHINGLES VACCINE 1989 OSTEOPOROSIS SCREENING 1994 PREVNAR/PNEUMOVAX (#1) 1994 INFLUENZA VACCINE 09/29/2016
[2017-04-26] MEDS ORDERED: SALINE FLUSH 10ml SYRINGE IVF PRN (13:02)
--- NOTE | 2017-04-26 13:19 | XRay Report ---
Indication: confusion rule out infection XR chest 1V: Comparison: 12/30/2016 Technique: Single portable upright chest Findings: Patient showed similar heart size the previous study with continued mild chronic appearing changes. No acute superimposed consolidations or effusions or other acute findings noted. Mild rotoscoliosis and degenerative changes in spine persist. Impression: Chronic appearing changes stable since prior study with no acute new superimposed pulmonary findings. Heart and central vascularity are unremarkable. .
[2017-04-26 14:50] VITALS: BMI 24.9
[2017-04-26] MEDS ORDERED: ACETAMINOPHEN 325 MG TABLET PO PRN (15:46)
[2017-04-26] MEDS: PredniSONE 20 MG TABLET PO SCH (17:59)
--- NOTE | 2017-04-26 18:34 | History & Physical Report ---
History of Present Illness Date: 04/26/17 Chief complaint: possible TIA HPI: Patient is an 86 yo female who pressents to ER with c/o feeling "really tired" and feeling like she "couldn't make conversation well." She sates when she woke up with morning she didn't feel quite right. Didn't sleep well last night. Her and her caregiver went on a walk and the caregiver and pt noted she was having trouble coming up with the words she wanted to use. Work up in ER included neg CT head. BP was elevated. She has a h/o similar sxs approx 2 years ago for which she underwent w-u at with Dr. Hernándze who diagnosed her with beta type amyloid angitis. This was treated with steroids and she did very well. 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 Osteoarthritis Yes Shingles Yes Other Reproductive Yes: hysterectomy hypothyroidism Yes Insomnia Yes Allergies Yes Surgical History: b/l bunionectomy, 2 hernia surgeries - inguinal, tonsillectomy , hyst and BSO, vertebroplasty 08/15 Family History: Strong FH of cardiac disease. Father - DM Family History Updates: updated - Social History Smoking status: Never smoker Substance use type: does not use Alcohol intake frequency: does not drink Housing: house Household members: caregiver (4 hours a day) Current occupational status: retired Current residence: Apartment/Private Home Social history: PCP - Dr Pereira Patient lives independently and has outside caregivers come in 2x a day for 2 hours at a time to help around the house and walk her dog and provide companionship. Her children live out of state. Medications Home Medications Medication Instructions Recorded Confirmed Type Omeprazole Magnesium [Prilosec Otc] 20 mg PO DAILY #0 06/05/10 04/26/17 History Levothyroxine Sodium 25 mcg PO DAILY #0 02/08/16 04/26/17 History Lisinopril [Prinivil] 10 mg PO DAILY 07/30/16 04/26/17 History Acetaminophen [Acetaminophen Extra 1,000 mg PO Q6H PRN 04/26/17 04/26/17 History Strength] Carboxymethylcellulose O/S 1 drop LEFT EYE QID PRN 04/26/17 04/26/17 History [Refresh Celluvisc] Loratadine [Claritin] 10 mg PO DAILY 04/26/17 04/26/17 History Melatonin 5 mg PO HS 04/26/17 04/26/17 History Mirtazapine [Remeron] 7.5 mg PO HS 04/26/17 04/26/17 History Multivitamin [One Daily 1 tab PO DAILY 04/26/17 04/26/17 History Multivitamin] Propranolol [Inderal] 40 mg PO BID 04/26/17 04/26/17 History Sertraline [Zoloft] 100 mg PO HS 04/26/17 04/26/17 History Allergies Allergy/AdvReac Type Severity Reaction Status Date / Time Sulfa (Sulfonamide AdvReac Unknown NAUSEA Verified 04/26/17 12:44 Antibiotics) blood thinners AdvReac Uncoded 04/26/17 15:59 narcotics AdvReac Cognitive Uncoded 04/26/17 16:01 Impairment Exam Vital Signs: Temperature 95.8 F L 04/26/17 15:48 Pulse Rate 64 04/26/17 17:02 Respiratory Rate 16 04/26/17 17:02 Blood Pressure 146/85 H 04/26/17 15:52 Pulse Oximetry 96 04/26/17 17:02 Height/Weight/BMI: Height 1.5 m Weight 56 kg Body Mass Index 24.9 - Constitutional Present: no acute distress, well nourished, well developed - Routine HEENT Exam Head: Present: normocephalic, atraumatic Eye: Present: EOMI, PERRL ENT: Present: mucous membranes moist, oropharynx clear - Routine Neck Exam Present: supple. Absent: lymphadenopathy, thyromegaly - Routine Respiratory Exam Present: CTA bilaterally. Absent: wheezes - Routine Cardiovascular Exam Present: RRR, murmur - Routine Abdominal Exam Present: soft, normoactive bowel sounds. Absent: tenderness, distended - Routine Extremities Exam Present: no edema, normal capillary refill - Routine Skin Exam Present: dry, warm - Routine Neurological Exam Present: alert, oriented X3, moving all extremities, vision grossly intact, hearing grossly intact, normal speech (on only a few occasions she was unable to come up with the word she was searching for. She is very appropriate in conversation and is a good historian). Absent: sensory deficit, motor deficit - Routine Psychiatric Exam Present: normal affect, cooperative Results - Labs CBC & Chem 7: 04/26/17 12:57 04/26/17 12:57 - ECG Data Tracing #1 Normal sinus rhythm. Rate 60 bpm - Imaging and Cardiology CT scan - head Additional comments: Date of Exam: 04/26/17 Indication: poss stroke CT head/brain wo con: Findings: Patient shows generalized atrophy and deep white matter changes similar to the previous study. No acute findings such as hemorrhage, midline shift or mass effect appreciated. No bony skull fractures are seen. Visualized sinuses and mastoids are unremarkable. Impression: 1. Generalized atrophy and deep white matter changes with no findings suggestive of hemorrhage, midline shift or mass. Chest x-ray Additional comments: Date of Exam: 04/26/17 Indication: confusion rule out infection XR chest 1V: Findings: Patient showed similar heart size the previous study with continued mild chronic appearing changes. No acute superimposed consolidations or effusions or other acute findings noted. Mild rotoscoliosis and degenerative changes in spine persist. Impression: Chronic appearing changes stable since prior study with no acute new superimposed pulmonary findings. Heart and central vascularity are unremarkable. Assessment and Plan (1) Expressive aphasia Current visit: Yes Status: Acute (2) Cerebral angiitis Current visit: Yes Status: Chronic Assessment and Plan: Assessment TIA sx's consistent with beta type amyloid angiitis which she has had definitively dx'd in past Hypertension GERD Hypothyroidism Insomnia Environmental allergies Blocked tear duct (right eye) - scheduled for surgery 04/2017 Osteoarthritis Hypothyroidism Insomnia Allergies Plan Patient was originally admitted for OBS under the hospitalist service for w-u of TIA and continued monitoring. After talking with pt's PCP, it was determined that pt carries dx of beta -type amyloid angiitis and will periodically get these symptoms. Patient previously had an MRI of her brain in August 2016. In discussion with patient's PCP, Dr. Pereira, it was decided to forego further workup and treat with prednisone 20 mg daily and see how she does overnight. If she is doing well tomorrow, she may be dismissed with follow- up in his office. He reports she has been intolerant of blood thinners and statins in the past. Would not recommend. Speech therapy evaluated patient and recommended regular diet. She was given her initial prednisone 20 mg with dinner. Next dose will be with breakfast. Monitor patient on telemetry. Neuro checks. PT/OT consults. SCDs for DVT prophylaxis. Patient wishes to be a full code at this time. Patient's care to return to Dr. Drew Pereira on dismissal. DVT Prophylaxis: SCD's Resuscitation Status: Full Code - Physician Narrative Physician: Latonya Esqueda MD Narrative: Date: 04/26/17 Time: 2214 I have independently evaluated and examined this patient. I reviewed the chart, the patient's history, and the HOSPICE VOLUNTEER COORDINATOR/PA's documented findings as above. We discussed and formulated the assessment and plan as above with additions as below: Mrs. Mariscal was seen around dinnertime at which time her speech improved significantly. She described going out for a walk earlier today with her caregiver. Blood pressure was normal prior to going out and after walking almost a mile she developed difficulty speaking with difficulty finding words and completing a thought. She additionally reports that her right leg seemed weaker than normal with a walk of that length. She denied numbness in any extremity and is not aware of any change in her vision or difficulty swallowing. She was evaluated in the emergency room were blood pressure was elevated and speech was improving spontaneously although word searching was still evident. When I reevaluated the patient at about 1830 speech was fluent, there is no drift to the upper extremity and coat joiner were symmetric graded 4+/5 There is significant degenerative changes in the small joints of the hands. Sensation intact 4 extremities. Motor tone normal and power was grossly symmetric between the right and left lower extremities. CT head reviewed by myself revealing generalized atrophy but no acute changes. Chest x-ray with borderline cardiomegaly and EKG sinus rhythm with no acute ST/T -wave changes by my review. Probable TIA with near resolution by the time of my evaluation-expressive aphasia and possible right lower extremity weakness. Will need PT/OT evaluations in the morning. Hospitalized on an outpatient basis for evaluation given resolving symptoms at the time of evaluation in the emergency room. Steroids initiated as discussed above. Anticoagulation contraindicated due to risk of hemorrhage with amyloid angiopathy. Hospital Course Summary Disclaimer: The visit summary below is not to be considered part of the above Progress Note. Hospital Course: 04/26/17 Patient was originally admitted for OBS under the hospitalist service for w-u of TIA and continued monitoring. After talking with pt's PCP, it was determined that pt carries dx of beta -type amyloid angiitis and will periodically get these symptoms. Patient previously had an MRI of her brain in August 2016. In discussion with patient's PCP, Dr. Pereira, it was decided to forego further workup and treat with prednisone 20 mg daily and see how she does overnight. If she is doing well tomorrow, she may be dismissed with follow- up in his office. He reports she has been intolerant of blood thinners and statins in the past. Would not recommend. Speech therapy evaluated patient and recommended regular diet. She was given her initial prednisone 20 mg with dinner. Next dose will be with breakfast. Monitor patient on telemetry. Neuro checks. PT/OT consults. Patient wishes to be a full code at this time. Patient's care to return to Dr. Drew Pereira on dismissal.
[2017-04-26] MEDS ORDERED: REFRESH CELLUVISC 1% Eye Drops 0.4ml LEFT EYE PRN (19:26)
[2017-04-26] MEDS ORDERED: MELATONIN 5 MG TABLET PO SCH (21:00)
[2017-04-26] MEDS ORDERED: SERTRALINE 100 MG TABLET PO SCH (21:00)
[2017-04-26] MEDS ORDERED: MIRTAZAPINE 15 MG TABLET PO SCH (21:00)
[2017-04-27] MEDS ORDERED: LEVOTHYROXINE 25 MCG TABLET PO SCH (06:30)
[2017-04-27 07:36] VITALS: BP 150/82; PULSE 60; RESP 16; TEMP 96.7; O2SAT 99
[2017-04-27] MEDS ORDERED: OMEPRAZOLE 20 MG CAPSULE PO SCH (09:00)
[2017-04-27] MEDS ORDERED: LORATADINE 10 MG TABLET PO SCH (09:00)
--- NOTE | 2017-04-27 09:35 | Discharge Summary ---
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 has had definitively dx'd in past Hypertension GERD Hypothyroidism Insomnia Environmental allergies Blocked tear duct (right eye) - scheduled for surgery 04/2017 Osteoarthritis Hypothyroidism Insomnia Allergies - Laboratory Labs: 04/27/17 04:57 04/27/17 04:57 Laboratory Tests 04/26/17 12:57 AST 27 ALT 26 Alkaline Phosphatase 76 Troponin I < 0.012 Laboratory Tests 04/26/17 13:45 Urine Color Yellow Urine Clarity Clear Urine pH 6.0 Ur Specific [place] 1.010 L Urine Protein Negative Urine Glucose (UA) Negative Urine Ketones Negative Urine Occult Blood Negative Urine Nitrate Negative Urine Bilirubin Negative Urine Urobilinogen 0.2 Ur Leukocyte Esterase Negative - Radiology Radiology: Date of Exam: 04/26/17 Indication: poss stroke CT head/brain wo con: in ER Findings: Patient shows generalized atrophy and deep white matter changes similar to the previous study. No acute findings such as hemorrhage, midline shift or mass effect appreciated. No bony skull fractures are seen. Visualized sinuses and mastoids are unremarkable. Impression: 1. Generalized atrophy and deep white matter changes with no findings suggestive of hemorrhage, midline shift or mass. History of Present Illness HPI: Patient is an 86 yo female who pressents to ER with c/o feeling "really tired" and feeling like she "couldn't make conversation well." She sates when she woke up with morning she didn't feel quite right. Didn't sleep well last night. Her and her caregiver went on a walk and the caregiver and pt noted she was having trouble coming up with the words she wanted to use. Work up in ER included neg CT head. BP was elevated. She has a h/o similar sxs approx 2 years ago for which she underwent w-u at with Dr. Hernández who diagnosed her with beta type amyloid angitis. This was treated with steroids and she did very well. Objective Vital signs: Temperature 96.7 F L 04/27/17 07:34 Pulse Rate 60 04/27/17 07:34 Respiratory Rate 16 04/27/17 07:34 Blood Pressure 150/82 H 04/27/17 07:34 Pulse Oximetry 99 04/27/17 07:34 Height/Weight/BMI: Height 1.5 m Weight 55.7 kg Body Mass Index 24.9 - Constitutional Present: no acute distress, well nourished, well developed - Routine HEENT Exam Head: Present: normocephalic, atraumatic - Routine Respiratory Exam Present: CTA bilaterally. Absent: wheezes - Routine Cardiovascular Exam Present: RRR, no murmur - Routine Abdominal Exam Present: soft, non distended, non tender - Routine Extremities Exam Present: no edema, normal capillary refill - Routine Skin Exam Present: dry, warm - Routine Neurological Exam Present: alert, oriented X3, normal speech. Absent: altered mental status - Routine Lymphatic Exam Lymphatic: Absent: adenopathy - Routine Psychiatric Exam Present: normal affect, cooperative Hospital Course This is a general summary of the patient's hospital course. For more details refer to the complete medical record. Hospital course: 04/26/17 Patient was originally admitted for OBS under the hospitalist service for w-u of TIA and continued monitoring. After talking with pt's PCP, it was determined that pt carries dx of beta -type amyloid angiitis and will periodically get these symptoms. Patient previously had an MRI of her brain in August 2016. In discussion with patient's PCP, Dr. Pereira, it was decided to forego further workup and treat with prednisone 20 mg daily and see how she does overnight. If she is doing well tomorrow, she may be dismissed with follow- up in his office. He reports she has been intolerant of blood thinners and statins in the past. Would not recommend. Speech therapy evaluated patient and recommended regular diet. She was given her initial prednisone 20 mg with dinner. Next dose will be with breakfast. Monitor patient on telemetry. Neuro checks. PT/OT consults. Patient wishes to be a full code at this time. Patient's care to return to Dr. Drew Pereira on dismissal. 04/27/17 Patient has tolerated 2 doses of Prednisone thus far. Is eating well. No weakness. She feels totally back to normal. Labs are ok. PT/OT to eval and will plan to DC home if evaluations agree. She will see Dr. Pereira later this week and continue on the Prednisone until she sees him. Time spent with patient: discharge greater than 30 minutes Resuscitation Status: Full Code Discharge Plan - Discharge Disposition Discharge Date: 04/27/17 Disposition: 01 Discharged Home, Self-Care *Condition: Stable Reason For Visit (Visit label in EMR): TIA/CVA - Discharge Medications *Discharge Medications: New PredniSONE [Deltasone 20 mg] 20 mg PO WB #5 tab Continue Omeprazole Magnesium [Prilosec Otc] 20 mg PO DAILY #0 Levothyroxine Sodium 25 mcg PO DAILY #0 Mirtazapine [Remeron] 7.5 mg PO HS Melatonin 5 mg PO HS Sertraline [Zoloft] 100 mg PO HS Loratadine [Claritin] 10 mg PO DAILY Acetaminophen [Acetaminophen Extra Strength] 1,000 mg PO Q6H PRN PRN Reason: Pain Carboxymethylcellulose O/S [Refresh Celluvisc] 1 drop LEFT EYE QID PRN PRN Reason: Prn Orders Propranolol [Inderal] 40 mg PO BID Multivitamin [One Daily Multivitamin] 1 tab PO DAILY - Discharge Packet/Instructions *Diet: Regular diet *Activity: as tolerated *Pain Management/Treatment: n/a *Wound Care: n/a Additional Instructions: Take the prednisone every morning with breakfast until you see Dr. Pereira. *Expected Signs/Symptoms: n/a *Notify Physician if: You have return of problems with your thoughts/speech or other new/concerning symptoms such as weakness or numbness or visual changes. *During Business Hours Contact: Dr Pereira's office *After Business Hours Contact: [facility] and have your doctor paged *Pending Lab/Results: No Pending Lab - Referrals/Follow Up *Referrals/Follow Up: Drew Pereira MD [Family Provider] - (See Dr Pappas or Wednesday this week for follow-up.APPOINTMENT ON 04/29 1:3O WITH KRISTA JONES.) - Patient Handouts Patient Handouts: Transient Ischemic Attack (GEN), Ischemic Stroke (GEN) - Dismissal Complete Discharge Instructions are:: Incomplete Physician Narrative - Narrative Physician: Deniz Juan MD Attestation Narrative: Date: 04/27/17 Time: 1502 Patient back to baseline. No complaints. Ambulated in pfeiffer with walker. Says she feels ready to go home. NAD. CTAB. RRR w/ murmur. s/nt/nd +bs. No edema. A&O x 3. CN II-XII intact. DOWNEY. No focal deficit. Continue prednisone for beta-type amyloid angiitis. She will f/u with Dr. Pereira.
[2017-04-27] MEDS: PredniSONE 20 MG TABLET PO SCH (14:19)
== END 2017-04-27 14:50 | disposition home health service (06) | DRG 103 ==
LOC: ED 12:25 → SUATTDRO 14:00 → MED 14:00
PROVIDERS: ADMIT Internal Medicine; ATTEND Hospitalist

== ENCOUNTER 2017-10-04 11:04 | Inpatient (IN) ==
--- NOTE | 2017-10-04 11:05 | Emergency Department Report ---
Fall HPI - General Chief Complaint: Fall Stated Complaint: FALL, HIP PAIN Time Seen by Provider: 10/04/17 11:05 Source: patient, EMS Mode of arrival: EMS Limitations: no limitations - History of Present Illness HPI Narrative: Patient is an 86-year-old female presents the ER for evaluation of fall, right hip pain. Patient has home health, lives in her own home. Patient states she fell approximately 2 AM, has had pain in her right hip since then. Patient was found down by home health EMS was called. Patient does have a small laceration to the back of her occiput, no headache at this time mild neck pain. Patient complaining of pain in her right hip which is shortened and internally rotated. Patient brought to the ER for evaluation MD complaint: fall Onset (ago): hour(s) Fall from: standing Fall witnessed: no Loss of consciousness: None Symptoms prior to fall: none - Related Data Home Medications Medication Instructions Recorded Confirmed Omeprazole Magnesium [Prilosec Otc] 20 mg PO ACB #0 06/05/10 10/06/17 Levothyroxine Sodium 25 mcg PO ACB #0 02/08/16 10/06/17 Loratadine [Claritin] 10 mg PO DAILY 04/26/17 10/06/17 Melatonin 5 mg PO HS 04/26/17 10/06/17 Mirtazapine [Remeron] 7.5 mg PO HS 04/26/17 10/06/17 Multivitamin [One Daily 1 tab PO DAILY 04/26/17 10/06/17 Multivitamin] Propranolol [Inderal] 40 mg PO BID 04/26/17 10/06/17 Sertraline [Zoloft] 100 mg PO HS 04/26/17 10/06/17 Bisacodyl Supp [Dulcolax] 10 mg MO PRN 10/06/17 10/06/17 Calcium 600 + D [Caltrate + D] 1 tab PO BID 10/06/17 10/06/17 Cholecalciferol [Vit. D-3] 1 tab PO DAILY 10/06/17 10/06/17 Enoxaparin [Lovenox] 40 mg SQ Q24H 10/06/17 10/06/17 Milk of Magnesia [Mom] 30 ml PO PRN PRN 10/06/17 10/06/17 PEG 3350 17gm PACKET [Miralax] 17 gm PO DAILY 10/06/17 10/06/17 Sennosides [Senna Lax] 17.2 mg PO HS 10/06/17 10/06/17 Sennosides [Senna Lax] 17.2 mg PO PRN PRN 10/06/17 10/06/17 Previous Rx's Medication Instructions Recorded Ferrous Gluconate [Fergon] 324 mg PO WB tab 10/14/17 Acetaminophen [Acetaminophen 8 650 mg PO Q8H #30 tablet.er 10/15/17 Hour] Tramadol [Ultram] 50 mg PO Q6H PRN #40 tab 10/15/17 Allergies Allergy/AdvReac Type Severity Reaction Status Date / Time Sulfa (Sulfonamide AdvReac Unknown NAUSEA Verified 10/04/17 12:02 Antibiotics) blood thinners AdvReac Uncoded 04/26/17 15:59 narcotics AdvReac Cognitive Uncoded 04/26/17 16:01 Impairment Review of Systems Constitutional: Denies: fever, chills, weakness Eyes: Denies: eye pain, eye discharge, vision change ENT: Denies: ear pain, throat pain, dental pain Cardiovascular: Denies: chest pain, palpitations, dyspnea on exertion Respiratory: Denies: cough, dyspnea, wheezes Gastrointestinal: Denies: abdominal pain, nausea, vomiting Genitourinary: Denies: urgency, dysuria Musculoskeletal: Reports: as per HPI Neurological: Denies: headache, weakness, numbness Psychiatric: Denies: anxiety, depression Endocrine: Denies: fatigue, heat or cold intolerance Hematological/Lymphatic: Denies: easy bleeding, easy bruising Allergic/Immunologic: Denies: facial swelling, urticaria PFSH Patient Stated Medical History Transient Ischemic Attacks ( Yes TIA) Other HEENT Yes: blocked tear duct, sx scheduled for 04/2017 Hypertension Yes Pneumonia Yes Other GI Yes: heart burn Other Hematologic Yes: hx "blood clots" unable to state where. Osteoarthritis Yes Shingles Yes Other Reproductive Yes: hysterectomy Clinic Medical History (Last Updated 10/04/17 @ 13:51 by Nicole Valverde APRN) Allergic rhinitis (Acute Medical) Angiitis (Acute Medical) beta-type amyloid angiitis HTN (hypertension) (Acute Medical) Hypothyroidism (Acute Medical) Insomnia (Acute Medical) Osteoarthritis (Acute Medical) Stroke (Acute Medical) intolerance to statins and anticoagulants Surgical History: b/l bunionectomy, 2 hernia surgeries - inguinal, tonsillectomy , hyst and BSO, vertebroplasty 08/15 Family History Updates: updated - Social History Smoking status: Never smoker Substance use type: does not use Alcohol intake frequency: does not drink Housing: house Household members: caregiver (4 hours a day) Current occupational status: retired Current residence: Apartment/Private Home Physical Exam - General General appearance: alert, in no apparent distress - Eye Eye exam: Present: PERRL - ENT ENT exam: Present: normal oropharynx, mucous membranes moist, TM's normal bilaterally - Neck Neck exam: Present: full ROM, trachea midline. Absent: tenderness - Chest Chest inspection: Present: symmetric chest wall rise. Absent: tenderness, rash - Respiratory Respiratory exam: Present: normal lung sounds bilaterally. Absent: respiratory distress, wheezes, stridor - Cardiovascular Cardiovascular exam: Present: regular rate, normal rhythm, normal heart sounds - Abdominal Exam Abdominal exam: Present: soft, normal bowel sounds. Absent: distention, tenderness - Extremities Exam Extremities exam: Present: other (patient has obvious deformity to right lower extremity, on movement of the leg you feel [id number], probable fracture) - Skin Skin exam: Present: warm, dry - Neurological Exam Neurological exam: Present: alert, oriented X3 - Psychiatric Psychiatric exam: Present: normal affect, normal mood Course Vital Signs Temperature 97.1 F 10/04/17 11:08 Pulse Rate 70 10/04/17 11:08 Respiratory Rate 20 10/04/17 11:08 Blood Pressure 111/69 10/04/17 11:08 Pulse Oximetry 98 10/04/17 11:08 Temperature 98.9 F 10/06/17 07:50 Pulse Rate 83 10/06/17 07:50 Respiratory Rate 16 10/06/17 07:50 Blood Pressure 136/71 10/06/17 07:50 Pulse Oximetry 96 10/06/17 07:50 Fall - Differential Diagnosis Likely: syncope - Medical Records Attestation: I reviewed the patient's medical records. - Lab Data Attestation: I reviewed the patient's lab results. Result diagrams: 10/06/17 04:19 10/06/17 04:19 Lab Results 10/04/17 10/04/17 10/04/17 Range/Units 11:18 11:18 11:18 WBC 12.8 H (4.5-11.0) T/MM3 RBC 3.94 L (4.00-5.20) M/MM3 Hgb 11.7 L (12-16) GM/DL Hct 35.2 L (36-46) % MCV 89.3 (80-100) UM3 MCH 29.7 (26-34) UUG MCHC 33.2 (31-37) GM/DL RDW Std Deviation 45.1 (36.9-50.2) FL Plt Count 261 (130-400) T/MM3 MPV 9.5 (9.4-12.4) UM3 Immature Gran % (Auto) 0.2 (0.0-0.5) % Neut % (Auto) 80.7 H (33-66) % Lymph % (Auto) 11.9 L (23-45) % [place] % (Auto) 5.9 (0-9.0) % Eos % (Auto) 1.1 (0-4) % Baso % (Auto) 0.2 (0-2) % Neut # (Auto) 10.3 H (1.8-7.7) T/MM3 Lymph # (Auto) 1.5 (1-4.8) T/MM3 [place] # (Auto) 0.8 (0-0.8) T/MM3 Eos # (Auto) 0.1 (0-0.5) T/MM3 Baso # (Auto) 0.0 (0-0.2) T/MM3 Abs Immat Gran (auto) 0.02 (0.00-0.03) T/MM3 Turbidity < 20 (0-20) Sodium 146 (136-146) MEQ/L Potassium 3.9 (3.6-5) MEQ/L Chloride 110 H (98-107) MEQ/L Carbon Dioxide 25 (22-30) MEQ/L Anion Gap 11 (5-15) meq/L BUN 18.0 H (7-17) MG/DL Creatinine 0.8 (0.7-1.2) mg/dL Estimated Creat Clear Not performed GFR Calculation 68 (>60) mL/min BUN/Creatinine Ratio 23 (6-26) RATIO Glucose 135 H (65-110) MG/DL Calculated Osmolality 285 H (261-280) MOSM/KG Calcium 8.8 (8.4-10.2) MG/DL Total Bilirubin 0.70 (0.20-1.30) MG/DL Icterus Index < 2 (0-7) AST 28 (14-36) U/L ALT 17 (1-35) U/L Alkaline Phosphatase 63 (38-126) U/L Total Creatine Kinase 141 H (30-135) U/L Troponin I < 0.012 (0-0.12) ng/ml Total Protein 6.6 (6.3-8.2) g/dL Albumin 4.0 (3.5-5.0) g/dL Globulin 2.6 (2.4-3.6) G/DL Albumin/Globulin Ratio 1.5 (1.1-2.2) RATIO TSH 3.18 (0.47-4.68) mIU/L Specimen Hemolysis < 15 (0-25) Ur Collection Type Urine Color (YELLOW) Urine Clarity Urine pH (5.0-8.0) Ur Specific [place] (1.015-1.025) Urine Protein (NEGATIVE) Urine Glucose (UA) (NEGATIVE) Urine Ketones (NEGATIVE) Urine Occult Blood (NEGATIVE) Urine Nitrate (NEGATIVE) Urine Bilirubin (NEGATIVE) Urine Urobilinogen (NORMAL) EU/DL Ur Leukocyte Esterase (NEGATIVE) Urinalysis Comment Blood Type O Negative Antibody Screen Negative Crossmatch (AHG) See Detail 10/04/17 Range/Units 11:32 WBC (4.5-11.0) T/MM3 RBC (4.00-5.20) M/MM3 Hgb (12-16) GM/DL Hct (36-46) % MCV (80-100) UM3 MCH (26-34) UUG MCHC (31-37) GM/DL RDW Std Deviation (36.9-50.2) FL Plt Count (130-400) T/MM3 MPV (9.4-12.4) UM3 Immature Gran % (Auto) (0.0-0.5) % Neut % (Auto) (33-66) % Lymph % (Auto) (23-45) % [place] % (Auto) (0-9.0) % Eos % (Auto) (0-4) % Baso % (Auto) (0-2) % Neut # (Auto) (1.8-7.7) T/MM3 Lymph # (Auto) (1-4.8) T/MM3 [place] # (Auto) (0-0.8) T/MM3 Eos # (Auto) (0-0.5) T/MM3 Baso # (Auto) (0-0.2) T/MM3 Abs Immat Gran (auto) (0.00-0.03) T/MM3 Turbidity (0-20) Sodium (136-146) MEQ/L Potassium (3.6-5) MEQ/L Chloride (98-107) MEQ/L Carbon Dioxide (22-30) MEQ/L Anion Gap (5-15) meq/L BUN (7-17) MG/DL Creatinine (0.7-1.2) mg/dL Estimated Creat Clear GFR Calculation (>60) mL/min BUN/Creatinine Ratio (6-26) RATIO Glucose (65-110) MG/DL Calculated Osmolality (261-280) MOSM/KG Calcium (8.4-10.2) MG/DL Total Bilirubin (0.20-1.30) MG/DL Icterus Index (0-7) AST (14-36) U/L ALT (1-35) U/L Alkaline Phosphatase (38-126) U/L Total Creatine Kinase (30-135) U/L Troponin I (0-0.12) ng/ml Total Protein (6.3-8.2) g/dL Albumin (3.5-5.0) g/dL Globulin (2.4-3.6) G/DL Albumin/Globulin Ratio (1.1-2.2) RATIO TSH (0.47-4.68) mIU/L Specimen Hemolysis (0-25) Ur Collection Type Urine, void-cc/notcc Urine Color Yellow (YELLOW) Urine Clarity Clear Urine pH 6.0 (5.0-8.0) Ur Specific [place] 1.015 (1.015-1.025) Urine Protein Negative (NEGATIVE) Urine Glucose (UA) Negative (NEGATIVE) Urine Ketones Trace A (NEGATIVE) Urine Occult Blood Negative (NEGATIVE) Urine Nitrate Negative (NEGATIVE) Urine Bilirubin Negative (NEGATIVE) Urine Urobilinogen 0.2 (NORMAL) EU/DL Ur Leukocyte Esterase Negative (NEGATIVE) Urinalysis Comment Microscopic not ind. Blood Type Antibody Screen Crossmatch (AHG) - Radiology Data Attestation: I reviewed the patient's radiology results. CT head: No acute intracranial abnormalities CT cervical spine: No acute fractures or dislocations, some stenosis Right femur: Proximal femoral fracture Right hip: Proximal femoral fracture Chest x-ray: No acute cardiopulmonary findings - EKG Data EKG #1 EKG attestation: Yes: I reviewed and interpreted this EKG. EKG shows normal: sinus rhythm Rate: normal Rhythm: NSR [place]/QRS: normal Interpretation: no acute changes Disposition Clinical Impression: Hip fracture Disposition: 02 To [facility] [place] Acute Care Condition: Stable - Seen By: physician
[2017-10-04] MEDS ORDERED: SALINE FLUSH 10ml SYRINGE IVF PRN (11:11)
[2017-10-04] MEDS ORDERED: FentaNYL 100 MCG/2 ML INJECTION IVP ONE (11:11)
[2017-10-04] MEDS: NS 1,000 ML IV SCH ×4 (11:16→23:04)
--- NOTE | 2017-10-04 12:20 | CT Scan Report ---
EXAM: CT head/brain wo con HISTORY: fall hit head COMPARISON: Prior CT scan of the head performed 04/26/[address] scan is performed without intravenous contrast administration. The current CT scan was performed using radiation dose-reduction techniques. There is diffuse cortical atrophy. There is proportionate prominence of the ventricles. The ventricles are midline without evidence of mass effect or shift. There is normal mackenzie-white matter differentiation. There is no evidence of acute intracranial hemorrhage or acute transcortical infarct. There is extensive periventricular white matter hypoattenuation likely reflecting chronic small vessel ischemic change. No extra-axial masses or fluid collections are seen. There is a small midline occipital scalp contusion. The bony calvarium appears intact. The visualized portions of the paranasal sinuses and mastoid air cells are clear. IMPRESSION: 1. No CT evidence of acute intracranial process. 2. Diffuse cortical atrophy and extensive periventricular white matter chronic small vessel ischemic change. 3. Small midline occipital scalp contusion. .
--- NOTE | 2017-10-04 12:29 | CT Scan Report ---
EXAM: CT cervical spine wo con HISTORY: fall, hit head, question neck pain COMPARISON: No prior studies available for comparison. Multiple contiguous thin section images were obtained through the cervical spine in the transaxial plane. Coronal and sagittal reconstruction imaging was performed. The current CT scan was performed using radiation dose-reduction techniques. FINDINGS: The cervical vertebral bodies are mildly demineralized. Coronal and sagittal reconstruction images shows cervical vertebral bodies are in good alignment without evidence of compression fracture deformity or subluxation. The facet and uncovertebral joints maintain good alignment. There is prominent facet joint arthrosis in the mid to lower cervical spine right greater than left. The cervical lordosis is well-maintained. There is no prevertebral soft tissue swelling. The odontoid process is intact, and there is good alignment of the lateral masses of C1 with respect to the body of C2. There is severe narrowing of the C4-C5 disc space and mild to moderate narrowing of the remaining disc spaces. The axial images show the bony central canal caliber is well maintained but there is mild to moderate bony neural foraminal narrowing in the mid to lower cervical spine, which appears most prominent from C3-C4 through C5-C6. The pedicles, lamina, transverse and spinous processes appear intact at each level. Limited imaging through the lung apices showed no acute parenchymal process. Moderate arteriosclerotic plaque formation is seen in the left carotid artery bifurcation and there is mild arteriosclerotic plaque in the right carotid artery bifurcation. IMPRESSION: 1. No CT evidence of acute fractures or malalignments in the cervical spine region. 2. Mild to moderate degenerative cervical spondylosis with the exception of severe degenerative disc narrowing at C4-C5. 3. Mild to moderate bony neural foraminal narrowing in the mid to lower cervical spine. 4. Bilateral carotid artery bifurcation ASVD left greater than right. .
--- NOTE | 2017-10-04 12:56 | XRay Report ---
EXAM: XR chest 1V HISTORY: fall, hip fracture preop COMPARISON: Prior chest x-ray dated 04/26/[address] scan of the chest dated 02/05/2017 . FINDINGS: The cardiomediastinal silhouette is normal. The mediastinum is not widened. The trachea is midline. The pulmonary vascularity is not engorged. The lung [place] mildly hyperexpanded showing increased interstitial markings that appear chronic. No acute consolidating infiltrates are seen. There is a faint nodular opacity peripheral aspect of the right midlung measuring 1.6 x 0.7 cm, not definitively seen on the prior imaging. The costophrenic angles are sharp. The bony thorax is stable again showing old healed right-sided rib fracture deformities and two level vertebral plasty changes in the lumbar spine. IMPRESSION: 1. Chronic emphysematous lung changes. 2. . Follow-up with PA and lateral views of the chest is recommended. This density persists on the follow-up imaging then CT scan of the chest would be warranted. 3. Definite acute focal infiltrates. .
--- NOTE | 2017-10-04 13:02 | XRay Report ---
EXAM: XR femur RT 2V HISTORY: fall, right hip pain, deformity TECHNIQUE: AP and lateral views of the right femur were obtained. ENCOUNTER: Initial COMPARISON: No prior studies available for comparison. FINDINGS: The osseous structures of the right femur are mildly demineralized. Anatomic alignment is maintained at the articular surfaces. There is a acute severely comminuted spiral fracture of the proximal shaft of the right femur. This fracture extends into the region of the intertrochanteric region with resultant displaced avulsion fracture of the lesser trochanter of the right femur. There is a trochanteric fracture fragment is superiorly displaced 2 cm and medially displaced 1 cm. There is 100% posterior shaft width displacement of the distal femoral shaft fracture fragments with respect to the proximal. There is also 4 cm femoral shaft of overriding at the fracture site. IMPRESSION: 1. Acute displaced spiral fracture of the proximal shaft of the right femur as described. There is extension of the fracture into the intertrochanteric region and resultant displaced avulsion fracturing of the lesser trochanter. .
--- NOTE | 2017-10-04 13:05 | XRay Report ---
EXAM: XR pelvis 1-2V HISTORY: fall, right hip pain deformity TECHNIQUE: Single view of the pelvis was obtained. ENCOUNTER: Initial COMPARISON: Prior examination dated 07/30/2016 FINDINGS: The osseous structures of the bony pelvis are in normal anatomic alignment at the articular surfaces. The osseous structures are moderately demineralized. The SI joints are symmetrical and the sacral arcuate lines appear to be intact. There is no evidence of symphyseal diastases of degenerative changes are noted about the bony pelvis. L3 vertebral plasty changes are visualized. Degenerative changes are seen in the lower lumbar spine. Partially visualized comminuted displaced fracture proximal shaft right femur. Please see separately dictated report of the right femur series performed 10/04/2017 for details. IMPRESSION: 1. Severely comminuted displaced fracture of the proximal shaft of the right femur. 2. No acute bony trauma involving the bony pelvis. 3. L3 vertebral plasty changes. 4. Degenerative changes. .
[2017-10-04 13:27] VITALS: BMI 25.0
--- NOTE | 2017-10-04 13:33 | History & Physical Report ---
History of Present Illness Date: 10/04/17 Chief complaint: Fall, right hip pain HPI: Arabella Mariscal is an 86-year-old woman who lives independently, though has home health aids check on her regularly. She has a history of dizziness and frequent falls. Early this morning around 2 AM she walked with her 3-point walker to the bathroom. She fell, though she cannot recall the specifics, but ended up falling and striking her head. She believes that she briefly lost consciousness. She injured her right hip. She was unable to get up and remained on the floor until her home health aid, Paty, found her at 0945. According to Paty, her walker was tangled up in the rug, making it appear that she might have tripped. Prior to this fall, she reports that she's been in her usual state of health. She has had a recent surgery to the tear duct of her left eye and still has a drain in place. Ever since her stroke, she's had some problems with processing and recalling information, and both the patient and Paty admit that she is occasionally confused. She occasionally has constipation. She has allergy-induced sinus drainage/congestion which is controlled with Flonase. She occasionally chokes when eating. Otherwise, she denies any fever/chills, cough, chest pain, palpitations, dyspnea, abdominal pain, nausea or vomiting, dysuria, leg swelling, rashes, or paresthesias. Paty activated 911 and Arabella was transferred to [facility] ED. Multiple imaging studies were done, including CT head and C-spine, both of which were negative for acute processes. However, she was found to have bilateral carotid artery bifurcation and on her chest x-ray, a new nodular opacity was noted to the right midlung. X-rays of her right hip revealed a spiral fracture of the right femur which extended into the intertrochanteric region. White count was elevated at 12.8, hemoglobin slightly low at 11.7. CMP was unremarkable. Creatinine kinase was slightly elevated at 141. A Salvador catheter was inserted. Urinalysis was negative for UTI. She was given fentanyl for pain management. Dr. Logan and Dr. Rosa were both contacted, and the patient was admitted to inpatient status under the hospitalist service. Dr. Logan is planning on surgical fixation later today. Review of Systems All systems PM: 10-point ROS was reviewed, no additional remarkable complaints except - Constitutional Constitutional: Present: as per HPI - EENMT Eyes: Present: as per HPI Balance: Present: as per HPI Nose: Present: as per HPI Mouth/Throat: Present: dry mouth - Cardiovascular Cardiovascular: Present: as per HPI Vascular: Present: see HPI - Respiratory Respiratory: Present: as per HPI - Gastrointestinal Gastrointestinal: Present: as per HPI - Genitourinary Genitourinary: Present: as per HPI - Musculoskeletal Musculoskeletal: Present: as per HPI - Integumentary/Breasts Integumentary: Present: as per HPI - Neurological Neurological: Present: as per HPI - Psychiatric Psychiatric: Present: other (occasionally gets frustrated b/c of problems processing information). Absent: anxiety - Hematologic/Lymphatic Hematologic/Lymphatic: Absent: lymphadenopathy - Allergic/Immunologic Allergic/Immunologic: Present: seasonal rhinorrhea Past Medical History Medical History: Medical History (Last Updated 10/04/17 @ 13:51 by Nicole Valverde, [employer] MECH[employer]IC) Allergic rhinitis Angiitis beta-type amyloid angiitis HTN (hypertension) Hypothyroidism Insomnia Osteoarthritis Stroke intolerance to statins and anticoagulants Surgical History: b/l bunionectomy, 2 hernia surgeries - inguinal, tonsillectomy , hysterectomy and BSO, vertebroplasty 08/15, left eye tear duct surgery Family History Updates: Strong family history of heart disease. Father had diabetes. Family History: As Above - Social History Smoking status: Never smoker Substance use type: does not use Alcohol intake frequency: does not drink Current residence: Apartment/Private Home Social history: PCP _ Dr. Pereira Medications Home Medications Medication Instructions Recorded Confirmed Type Omeprazole Magnesium [Prilosec Otc] 20 mg PO DAILY #0 06/05/10 10/04/17 History Levothyroxine Sodium 25 mcg PO DAILY #0 02/08/16 10/04/17 History Acetaminophen [Acetaminophen Extra 1,000 mg PO Q6H PRN 04/26/17 10/04/17 History Strength] Carboxymethylcellulose O/S 1 drop LEFT EYE QID PRN 04/26/17 10/04/17 History [Refresh Celluvisc] Loratadine [Claritin] 10 mg PO DAILY 04/26/17 10/04/17 History Melatonin 5 mg PO HS 04/26/17 10/04/17 History Mirtazapine [Remeron] 7.5 mg PO HS 04/26/17 10/04/17 History Multivitamin [One Daily 1 tab PO DAILY 04/26/17 10/04/17 History Multivitamin] Propranolol [Inderal] 40 mg PO BID 04/26/17 10/04/17 History Sertraline [Zoloft] 100 mg PO HS 04/26/17 10/04/17 History Tramadol [Ultram] 50 mg PO Q6HR 10/04/17 10/04/17 History Allergies Allergy/AdvReac Type Severity Reaction Status Date / Time Sulfa (Sulfonamide AdvReac Unknown NAUSEA Verified 10/04/17 12:02 Antibiotics) blood thinners AdvReac Uncoded 04/26/17 15:59 narcotics AdvReac Cognitive Uncoded 04/26/17 16:01 Impairment Exam Vital Signs: Temperature 97.8 F 10/04/17 12:33 Pulse Rate 83 10/04/17 12:33 Respiratory Rate 20 10/04/17 12:33 Blood Pressure 138/64 10/04/17 12:33 Pulse Oximetry 97 10/04/17 12:33 Height/Weight/BMI: Height 1.5 m Weight 58.4 kg - Constitutional Present: no acute distress, well nourished, well developed, thin - Routine HEENT Exam Head: Present: normocephalic. Absent: atraumatic (small laceration to occiput, not requiring closure) Eye: Present: PERRL. Absent: conjunctival icterus, scleral injection ENT: Present: oropharynx clear - Routine Neck Exam Present: supple. Absent: lymphadenopathy, tenderness - Routine Respiratory Exam Present: CTA bilaterally - Routine Cardiovascular Exam Present: RRR, S1, S2 - Routine Abdominal Exam Present: soft, normoactive bowel sounds, non distended, non tender - Routine Exam Comments: Salvador catheter to dependent drainage - Routine Extremities Exam Present: no edema Comments: Right leg is shortened - Routine Skin Exam Present: intact, dry, urticaria - Routine Neurological Exam Present: alert, oriented X3, CN II-XII intact, moving all extremities, vision grossly intact, hearing grossly intact, normal speech. Absent: sensory deficit , motor deficit, altered mental status, facial asymmetry - Routine Psychiatric Exam Present: normal affect, normal thought process, cooperative Results - Labs CBC & Chem 7: 10/04/17 11:18 10/04/17 11:18 - ECG Data Tracing #1 I reviewed this ECG and interpreted as documented below: Sinus rhythm, no ST segment elevation or depression - Imaging and Cardiology Right femur, pelvis Status: image reviewed by me Additional comments: Acute displaced spiral fracture of the proximal shaft of the right femur. There is extension of the fracture into the intertrochanteric region and resultant displaced avulsion fracturing of the lesser trochanter. Severely comminuted displaced fracture of the proximal shaft of the right femur. No acute bony trauma involving the bony pelvis. L3 vertebral plasty changes.4. Degenerative changes. CT head Status: image reviewed by me Additional comments: Impression: 1. No CT evidence of acute intracranial process. 2. Diffuse cortical atrophy and extensive periventricular white matter chronic small vessel ischemic change. 3. Small midline occipital scalp contusion. CT c-spine Status: image reviewed by me Additional comments: Impression: 1. No CT evidence of acute fractures or malalignments in the cervical spine region. 2. Mild to moderate degenerative cervical spondylosis with the exception of severe degenerative disc narrowing at C4-C5. 3. Mild to moderate bony neural foraminal narrowing in the mid to lower cervical spine. 4. Bilateral carotid artery bifurcation ASVD left greater than right. Chest x-ray Status: image reviewed by me Additional comments: Impression 1. Chronic emphysematous lung changes. 2. There is a faint nodular opacity peripheral aspect of the right midlung measuring 1.6 x 0.7 cm, not definitively seen on the prior imaging. Follow-up with PA and lateral views of the chest is recommended. This density persists on the follow-up imaging then CT scan of the chest would be warranted. Assessment and Plan Assessment and Plan: Assessment Right femur fracture with extension into intertrochanteric region Leukocytosis, POA, suspect stress reaction Normocytic anemia Nodular opacity peripheral aspect of the right midlung measuring 1.6 x 0.7 cm - new finding Beta-type amyloid angiitis (anticoagulation contraindicated due to risk of hemorrhage) HTN Stroke/TIA hx Hypothyroidism GERD OA Plan Admit, inpatient status, under the hospitalist service. Dr. Logan consulted from the ED, and is planning on ORIF today. Patient is medically cleared. Suspect leukocytosis is a stress response rather than suggestion of infection. Monitor hgb, mild anemia noted on admission. She will need work up for pulmonary nodular opacity, if she wishes to proceed - this may be done in outpatient setting. Speech therapy eval in addition to PT/OT given reports of intermittent aspiration. DC Salvador ALAINA. Patient reports low tolerance to narcotics - will have lower doses available and non-narcotic options. Advanced directives: +DPOA, +Living will, DNR. DVT Prophylaxis: SCD's GI Prophylaxis: Omeprazole Resuscitation Status: Do Not Resuscitate - Physician Narrative Physician: Von Rosa MD Narrative: Date: 10/04/17 Time: 2038 Have independently interviewed and examined pt. Chart reviewed. Case discussed with ED physician and my AT[employer] MECH[employer]IC. Care plan developed with my supervision; agree with above. Present to ED following fall-found on floor by HH nurse. Pain with movements. Evaluated in ED-displaced spiral fracture of the proximal shaft of the right femur found. Patient admitted to inpatient status for definitive surgical repair. Seen in room post op. Tolerate surgery well. Reports pain much decreased. Breathing well. No nausea. Lungs: decreased, no distress CV: regular AB: soft nt/nd MSE: awake alert Plan: Inpatient admission-anticipate greater than 2 midnights of hospital care needed. Consult with Dr Logan for definitive orthopedic intervention. Control pain and nausea. Monitor blood counts-will type and screen. PT/OT post surgery. DNR as per her requests. Care to return to Dr Pereira at time of discharge from [facility]. Hospital Course Summary Disclaimer: The visit summary below is not to be considered part of the above Progress Note. Hospital Course: 10/04/17 Admit, inpatient status, under the hospitalist service. Dr. Logan consulted from the ED, and is planning on ORIF today. Patient is medically cleared. Suspect leukocytosis is a stress response rather than suggestion of infection. Monitor hgb, mild anemia noted on admission. She will need work up for pulmonary nodular opacity, if she wishes to proceed - this may be done in outpatient setting. Speech therapy eval in addition to PT/OT given reports of intermittent aspiration. DC Salvador ALAINA. Patient reports low tolerance to narcotics - will have lower doses available and non-narcotic options. Advanced directives: +DPOA, +Living will, DNR.
[2017-10-04] MEDS ORDERED: ONDANSETRON 4 MG/2 ML INJECTION IVP PRN ×2 (13:43→18:37)
[2017-10-04] MEDS ORDERED: MORPHINE SULFATE 4mg INJECTION IVP PRN ×2 (13:43→14:07)
[2017-10-04] MEDS ORDERED: REFRESH CELLUVISC 1% Eye Drops 0.4ml LEFT EYE PRN (14:07)
[2017-10-04] MEDS ORDERED: ACETAMINOPHEN 500 MG TABLET PO PRN (14:07)
[2017-10-04] MEDS ORDERED: TRAMADOL 50 MG TABLET PO SCH (15:00)
--- NOTE | 2017-10-04 15:17 | Anesthesia Preoperative Report ---
Anesthesia Preoperative Record - Date and Time Date: 10/04/17 Preoperative Diagnosis: Hip / Femoral Fracture NPO Since Date: 10/03/17 NPO Since Time: 00:00 Allergies/Adverse Reactions: Allergies Allergy/AdvReac Type Severity Reaction Status Date / Time Sulfa (Sulfonamide AdvReac Unknown NAUSEA Verified 10/04/17 12:02 Antibiotics) blood thinners AdvReac Uncoded 04/26/17 15:59 narcotics AdvReac Cognitive Uncoded 04/26/17 16:01 Impairment - Vital Signs Vital Signs: Temperature 98.2 F 10/04/17 14:35 Pulse Rate 89 10/04/17 14:35 Respiratory Rate 16 10/04/17 14:35 Blood Pressure 132/79 10/04/17 14:35 Pulse Oximetry 98 10/04/17 14:35 Height and Weight: Height 1.5 m Weight 56.1 kg Body Mass Index 25.0 - Medications Inpatient Medications: Current Medications Acetaminophen (Tylenol) 1,000 mg PO Q6H PRN PRN Reason: Pain Artificial Tears (Refresh Celluvisc) 1 drop LEFT EYE QID PRN PRN Reason: PRN orders Sodium Chloride (Normal Saline) 1,000 mls @ 100 mls/hr IV .Q10H [facility] Last Admin: 10/04/17 11:16 Dose: 100 mls/hr Sodium Chloride (Normal Saline) 1,000 mls @ 100 mls/hr IV .Q10H [facility] Last Admin: 10/04/17 14:19 Dose: Not Given Levothyroxine Sodium (Synthroid) 25 mcg PO ACB [facility] Loratadine (Claritin) 10 mg PO 0700 [facility] Melatonin (Melatonin) 5 mg PO HS [facility] Mirtazapine (Remeron) 7.5 mg PO HS [facility] Morphine Sulfate (Morphine Sulfate Inj) 1 - 4 mg IVP Q2H PRN PRN Reason: Pain Omeprazole (Prilosec) 20 mg PO ACB [facility] Ondansetron HCl (Zofran) 4 mg IVP Q6H PRN PRN Reason: Nausea Propranolol HCl (Inderal) 40 mg PO BID [facility] Sertraline HCl (Zoloft) 100 mg PO HS [facility] Sodium Chloride (Iv Flush) 10 - 80 ml IVF PRN PRN PRN Reason: Flushing Tramadol HCl (Ultram) 50 mg PO Q6HR [facility] Home Medications: Home Medications Medication Instructions Recorded Confirmed Type Omeprazole Magnesium [Prilosec Otc] 20 mg PO DAILY #0 06/05/10 10/04/17 History Levothyroxine Sodium 25 mcg PO DAILY #0 02/08/16 10/04/17 History Acetaminophen [Acetaminophen Extra 1,000 mg PO Q6H PRN 04/26/17 10/04/17 History Strength] Carboxymethylcellulose O/S 1 drop LEFT EYE QID PRN 04/26/17 10/04/17 History [Refresh Celluvisc] Loratadine [Claritin] 10 mg PO DAILY 04/26/17 10/04/17 History Melatonin 5 mg PO HS 04/26/17 10/04/17 History Mirtazapine [Remeron] 7.5 mg PO HS 04/26/17 10/04/17 History Multivitamin [One Daily 1 tab PO DAILY 04/26/17 10/04/17 History Multivitamin] Propranolol [Inderal] 40 mg PO BID 04/26/17 10/04/17 History Sertraline [Zoloft] 100 mg PO HS 04/26/17 10/04/17 History Tramadol [Ultram] 50 mg PO Q6HR 10/04/17 10/04/17 History Is Patient on Beta Jose?: No - Medical History Respiratory: Reports: Pneumonia DENIES: Sleep Apnea Cardiovascular: Reports: Heart Murmur, Hypertension Gastrointestional: Reports: Other (heart burn, CONSTIPATION) Neuro/Musculoskeletal: Reports: Back Problems, Depression, Syncope, Other (TIA without residual) Renal/Endocrine: Reports: Thyroid Disease Other History: Reports: Anesthesia Reactions (N/V) - Surgical History Musculoskeletal Surgery/Tx: Reports: Other (kyphoplasty) Reproductive Surgery/Treatment: Reports: Hysterectomy Anesthesia Reactions: None Hx Family Anesthesia Reaction: No History of Motion Sickness: No - Social History Smoking Status: Never smoker Hx Chewing Tobacco Use: No Second Hand Exposure: No Substance Use Type: does not use Alcohol Intake Frequency: does not drink - Pertinent Findings Laboratory: CBC and BMP 10/04/17 11:18 10/04/17 11:18 BMP 10/04/17 11:18 Sodium 146 Potassium 3.9 Chloride 110 H Carbon Dioxide 25 BUN 18.0 H Creatinine 0.8 Glucose 135 H Calcium 8.8 Cardiac Enzymes 10/04/17 Range/Units 11:18 Total Creatine Kinase 141 H (30-135) U/L Troponin I < 0.012 (0-0.12) ng/ml Liver Function 10/04/17 Range/Units 11:18 Total Bilirubin 0.70 (0.20-1.30) MG/DL AST 28 (14-36) U/L ALT 17 (1-35) U/L Alkaline Phosphatase 63 (38-126) U/L Albumin 4.0 (3.5-5.0) g/dL Urine 10/04/17 Range/Units 11:32 Urine Color Yellow (YELLOW) Urine Clarity Clear Urine pH 6.0 (5.0-8.0) Ur Specific [place] 1.015 (1.015-1.025) Urine Protein Negative (NEGATIVE) Urine Glucose (UA) Negative (NEGATIVE) EKG: Sinus Rhythm - Physical Exam Respiratory Exam: Present: lungs clear, bilateral breath sounds equal Cardiovascular Exam: Present: regular rate and rhythm - Airway Assessment Mallampati Score: II TMD: 3 Fingerbreadths Neck Extension: fair Overall Assessment: no airway concerns - ASA ASA Score: 3 - Plan Anesthesia: General TIVA, General Inhalation Gases - Discussion Discussion: Discussed risks/options/alternatives of anesthesia and questions answered. Patient consents. Nursing pain assessment noted. Present for Discussion: other (DPOA gave consent for surgery) Attestation Statement: Prior to the delivery of any anesthetic medication, I examined the patient, developed the plan, obtained the patient's consent and discussed the risk and benefits of the procedure with the patient/guardian. - Additional Information Seen by Anesthesia: Yes
[2017-10-04] MEDS ORDERED: EPINEPHrine PF 0.25 MG, BUPIVACAINE 0.25% PF 30 ML, KETOROLAC INJ 60 MG in NS 30 ML OPSITE ONE (15:24)
[2017-10-04] MEDS: NOZIN NASAL SWAB NAS SCH ×4 (15:25→23:15)
[2017-10-04] MEDS ORDERED: CEFAZOLIN 1 G INJECTION IVP ONE (15:28)
[2017-10-04] MEDS ORDERED: KETAMINE 500 MG/10 ML INJECTION ONE (15:52)
[2017-10-04] MEDS ORDERED: FentaNYL 100 MCG/2 ML INJECTION ONE (15:52)
[2017-10-04] MEDS ORDERED: PROPOFOL 500 MG/50 ML VIAL ONE ×2 (15:53→16:53)
[2017-10-04] MEDS ORDERED: BUPIVACAINE 0.25% (2.5mg/ml) PF 30ml INJECTION ONE (15:56)
[2017-10-04] MEDS ORDERED: LIDOCAINE 1% (10mg/ml) 30ml SDV INJ ONE (15:56)
[2017-10-04] MEDS ORDERED: ONDANSETRON 4 MG/2 ML INJECTION ONE (15:57)
[2017-10-04] MEDS ORDERED: DEXAMETHASONE 4 MG/ML INJECTION ONE (15:58)
[2017-10-04] MEDS ORDERED: PHENYLEPHRINE INJ 10 MG/ML VIAL IV ONE (16:10)
[2017-10-04] MEDS ORDERED: VASOPRESSIN 20unit/ml INJECTION ONE (16:25)
[2017-10-04] MEDS ORDERED: TRANEXAMIC ACID 3gm/NS 45ml IRR MIX IR ONE (16:30)
[2017-10-04] MEDS ORDERED: VANCOMYCIN 1,000 MG INJECTION OP ONE (18:10)
[2017-10-04] MEDS ORDERED: FentaNYL 100 MCG/2 ML INJECTION IVP PRN (18:37)
--- NOTE | 2017-10-04 19:00 | Anesthesia Postoperative Note ---
- Date and Time Date: 10/04/17 Time: 19:00 - Status Patient Participated in Evaluation: Patient Participated in Person Vital Signs: Temperature 97.8 F 10/04/17 18:31 Pulse Rate 82 10/04/17 18:50 Respiratory Rate 12 10/04/17 18:50 Blood Pressure 192/81 H 10/04/17 18:50 Pulse Oximetry 99 10/04/17 18:50 Respiratory Function: Airway Patent, Regular Respirations Cardiovascular Function: Regular Pulse Mental Status: Lethargic (responds to verbal command.) Pain Intensity: 0 Hydration: IV Infusing Nausea/Vomiting: None Complications During Recover: None Apparent - Follow-Up Instructions Instructions: Per Surgeon
[2017-10-04] MEDS ORDERED: TRAMADOL 50 MG TABLET PO PRN (19:44)
[2017-10-04] MEDS ORDERED: NOZIN NASAL SWAB NAS ONE (19:44)
[2017-10-04] MEDS ORDERED: MELATONIN 5 MG TABLET PO SCH (21:00)
[2017-10-04] MEDS ORDERED: MIRTAZAPINE 15 MG TABLET PO SCH (21:00)
[2017-10-04] MEDS ORDERED: PROPRANOLOL 20 MG TABLET PO SCH ×2 (21:00)
[2017-10-04] MEDS ORDERED: SERTRALINE 100 MG TABLET PO SCH (21:00)
[2017-10-04] MEDS: MIRTAZAPINE 15 MG TABLET PO SCH (23:06)
[2017-10-04] MEDS: MELATONIN 5 MG TABLET PO SCH (23:06)
[2017-10-04] MEDS: SERTRALINE 100 MG TABLET PO SCH (23:07)
[2017-10-04] MEDS: ACETAMINOPHEN 325 MG TABLET PO SCH (23:08)
[2017-10-04] MEDS: DOCUSATE SODIUM 100 MG CAPSULE PO SCH (23:11)
[2017-10-04] MEDS: ENOXAPARIN 40 MG/0.4 ML INJECTION SQ SCH (23:13)
[2017-10-04] MEDS: SENNOSIDES 8.6 MG TABLET PO SCH (23:14)
[2017-10-05] MEDS: CEFAZOLIN 1 G in NS 100 ML IV SCH ×2 (00:05→09:02)
[2017-10-05] MEDS: NOZIN NASAL SWAB NAS SCH ×3 (06:18→21:33)
[2017-10-05] MEDS: LORATADINE 10 MG TABLET PO SCH (06:18)
[2017-10-05] MEDS: OMEPRAZOLE 20 MG CAPSULE PO SCH (06:18)
[2017-10-05] MEDS: LEVOTHYROXINE 25 MCG TABLET PO SCH (06:25)
[2017-10-05] MEDS ORDERED: LEVOTHYROXINE 25 MCG TABLET PO SCH (06:30)
[2017-10-05] MEDS ORDERED: OMEPRAZOLE 20 MG CAPSULE PO SCH (06:30)
[2017-10-05] MEDS ORDERED: LORATADINE 10 MG TABLET PO SCH (07:00)
--- NOTE | 2017-10-05 08:21 | Remote Fluorsocopy Report ---
Indication: Right hip gamma nail PROCEDURE: RF hip RT 2 view: Encounter: Initial Comparison: Pelvis and right hip radiographs dated October 04, 2017 Findings: Eight fluoroscopic spot images are submitted for interpretation. Images show open reduction and internal fixation of the right proximal femoral fracture with placement of an medullary nail and compression screw. 3 cerclage wires are noted with two distal interlocking screws. Improved alignment of the fracture fragments. Impression: Fluoroscopy as above. Fluoroscopy time is 305.1 seconds. Fluoroscopy dose is 4510 mRad. .
[2017-10-05] MEDS: ACETAMINOPHEN 325 MG TABLET PO SCH ×4 (09:03→21:32)
[2017-10-05] MEDS: DOCUSATE SODIUM 100 MG CAPSULE PO SCH ×2 (09:04→21:32)
[2017-10-05] MEDS: POLYETHYL GLYCOL 3350 17gm PACKET PO SCH (09:04)
[2017-10-05] MEDS ORDERED: BISACODYL 10 MG SUPPOSITORY RECTALLY PRN (10:16)
[2017-10-05] MEDS ORDERED: NS FLUSH BAG 500ml IV PRN (10:18)
[2017-10-05] MEDS: NS 1,000 ML IV SCH ×2 (10:52→11:07)
--- NOTE | 2017-10-05 10:54 | Progress Note ---
- Date 10/05/17 Subjective: F/U: Right femur fracture with extension into intertrochanteric region Doing well this morning-has been up in chair (does feel tired and would like to go back to bed). Notes pain to right hip/thigh area but sounds manageable. No nausea or ab pain. Did eat breakfast well. Passing flatus. Breathing well. No f/ c. Objective Vital signs: Temperature 98.5 F 10/05/17 07:49 Pulse Rate 111 H 10/05/17 10:01 Respiratory Rate 16 10/05/17 07:49 Blood Pressure 108/67 10/05/17 10:01 Pulse Oximetry 94 10/05/17 07:49 Height/Weight/BMI: Height 1.5 m Weight 60.8 kg Body Mass Index 25.0 - Constitutional Present: well nourished, well developed, average body habitus, cooperative - Routine HEENT Exam Head: Present: normocephalic, atraumatic Eye: Present: EOMI, PERRL ENT: Present: mucous membranes moist - Routine Respiratory Exam Present: CTA bilaterally. Absent: rales, respiratory distress, rhonchi, stridor , wheezes - Routine Cardiovascular Exam Present: RRR, no murmur - Routine Abdominal Exam Present: soft, non distended, non tender. Absent: normoactive bowel sounds ( decreased) - Routine Extremities Exam Present: edema (To right thigh and leg). Absent: cyanosis, clubbing Comments: SCD in place - Routine Musculoskeletal Exam Musculoskeletal: Present: no clubbing or cyanosis - Routine Skin Exam Present: dry, warm - Routine Neurological Exam Present: alert, CN II-XII intact, moving all extremities, vision grossly intact , hearing grossly intact, normal speech. Absent: motor deficit, altered mental status - Routine Psychiatric Exam Present: normal affect, normal thought process (some forgetfullness), cooperative. Absent: anxious, agitated Results - Labs CBC & Chem 7: 10/05/17 16:35 10/05/17 03:59 Assessment and Plan (1) Right femoral fracture Current visit: Yes Status: Acute Assessment and Plan: Assessment Right femur fracture with extension into intertrochanteric region Leukocytosis (POA) stress reaction, resolved Acute blood loss anemia Normocytic anemia Nodular opacity peripheral aspect of the right midlung measuring 1.6 x 0.7 cm - new finding Beta-type amyloid angiitis (anticoagulation contraindicated due to risk of hemorrhage) HTN Stroke/TIA hx Hypothyroidism GERD OA Plan Hemoglobin with decrease from 11.3 to 7.9; will give [address] improving - can decrease IVF to 75 cc/hr. Vitamin D level low normal. Will start Ca with Vit D BID and Vit D 1000 units daily. PT/OT initiated to help increase strength and functional status. CM to help with discharge disposition for continued rehabilitation. Continue with bowel motivation. Encourage pulmonary toilet - IS, deep breathing. Discussed with patient about post discharge rehab options (Skilled, IRU). CM will help with disposition. Recheck CBC in am due to anemia. Will repeat BMP in am secondary to HTN and medications. Case discussed with CM. Time spent with patient care greater than 35 minutes. DVT Prophylaxis: SCD's GI Prophylaxis: Omeprazole Resuscitation Status: Do Not Resuscitate - Time spent with patient Time with patient PN: 35 minutes - Physician Narrative Physician: Von Rosa MD Narrative: Date: 10/05/17 Time: 1050 Hospital Course Summary Disclaimer: The visit summary below is not to be considered part of the above Progress Note. Hospital Course: 10/04/17 ADMIT and OP DAY - Open reduction internal fixation with cephalomedullary katerin and cerclage wires to right subtrochanteric hip fracture. Admit, inpatient status, under the hospitalist service. Dr. Logan consulted from the ED, and is planning on ORIF today. Patient is medically cleared. Suspect leukocytosis is a stress response rather than suggestion of infection. Monitor hgb, mild anemia noted on admission. She will need work up for pulmonary nodular opacity, if she wishes to proceed - this may be done in outpatient setting. Speech therapy eval in addition to PT/OT given reports of intermittent aspiration. DC [place] ALAINA. Patient reports low tolerance to narcotics - will have lower doses available and non-narcotic options. Advanced directives: +DPOA, +Living will, DNR. 10/05/17 POD # 1 Hemoglobin with decrease from 11.3 to 7.9; will give [address] improving - can decrease IVF to 75 cc/hr. Vitamin D level low normal. Will start Ca with Vit D BID and Vit D 1000 units daily. PT/OT initiated to help increase strength and functional status. CM to help with discharge disposition for continued rehabilitation. Continue with bowel motivation. Encourage pulmonary toilet - IS, deep breathing.
--- NOTE | 2017-10-05 12:28 | Operative Note ---
DATE: 10/04/2017 PREOPERATIVE DIAGNOSIS: Right comminuted intertrochanteric hip fracture. POSTOPERATIVE DIAGNOSIS: Same. PROCEDURE: Open reduction internal fixation with cephalomedullary katerin and cerclage wires to right subtrochanteric hip fracture. SURGEON: Danny Logan MD DATAWAREHOUSE DEVELOPER: Jennifer Sorenson APRN ANESTHESIA: TIVA with LMA. EBL & FLUIDS: Please see anesthetic records. DESCRIPTION OF PROCEDURE Ms. Mariscal and her right hip were identified and marked in the Emergency Room. She was brought back to the operating suite and placed under general anesthesia. She was then placed on the fracture table. Both feet were placed in well padded traction boots. The left leg was placed into extension. The right leg was placed into a neutral position with traction. Fluoroscopic imaging was brought in. she had a classic subtrochanteric pattern with comminution at the fracture site. This was a long oblique type fracture pattern as well with a lateral butterfly fragment. The lesser trochanter was completely displaced. I ensured that I could get a reduction manually before the right lower extremity was then prepped and draped. A 3 cm incision was made proximal to the greater trochanter. The proximal femur was opened over a guidepin. At this point we used the femur finder to reduce the proximal fragment down to the distal fragment and with this I was able to pass the guidewire into the distal fragment. At this point before reaming I did make a lateral approach at the fracture site sharply. Once the fracture site was encountered I was able to place three cerclage wires around it. these reduced the fracture nicely after which I was able to over-ream to a 14.5. We measured for a 380 mm nail and I passed the long gamma nail over the guidewire and the guidewire was then removed. A lag screw was placed into a standard location to the femoral head over a guidepin. The aiming arm was then removed. I moved back to the fracture site. There was a butterfly fragment which was displaced posteriorly. I reduced this back into its lateral position under one of the cerclage wires. All of the cerclage wires were then tightened one last time and crimped. I then placed two distal locking screws from lateral to medial using perfect ewiiaapaayp technique. While my habilitation assistant thoroughly irrigated the lateral incision the muscle fascia was repaired with 2- 0 Vicryl. The IT band was repaired with #1 Vicryl. The subcutaneous tissue was closed with 2-0 Vicryl and the skin was closed with chi. One gram of vancomycin powder was placed into the largest incision before closure. I then injected three grams of TXA using an 18 gauge spinal needle into the fracture site under fluoroscopic imaging. Sterile dressings were then placed. She was taken out of the traction bed and placed back into her hospital bed. She was then allowed to waken from general anesthesia and taken to the recovery room under the care of Anesthesia. She tolerated the procedure well. There were no complications. ROMAN
--- NOTE | 2017-10-05 18:06 | Orthopedic Progress Note ---
Date: Date: 10/05/17 Time: 1801 Subjective/Severity of Illness: Mrs. Mariscal is post op day 1 ORIF right subtrochanteric hip fracture. She is sitting up in the chair during rounds. States it takes 2 nurses to help her with transfers, using wheelchair. Used wheelchair prior to surgery as well. Pain has been well controlled with Tylenol. She denies any CP, SOA, nausea. Tolerating PO well. Hgb 7.9 this morning, after receiving 1 unit of PRBC, Hgb 8.5. She does report consistent tingling of her right foot. Orthopedic Exam Vital signs: Temperature 98.0 F 10/05/17 15:30 Pulse Rate 90 10/05/17 15:30 Respiratory Rate 16 10/05/17 15:30 Blood Pressure 104/57 10/05/17 15:30 Pulse Oximetry 100 10/05/17 15:30 - Constitutional General Appearance: Present: alert, orientated x3 - Respiratory Exam Present: non-labored - Cardiovascular Exam Present: pedal pulses intact - Abdominal Exam Present: soft. Absent: tenderness, distended - Extremities Exam Present: edema (To right thigh and leg), non tender (RLE compartments nontender. Tenderness over surgical incision site), pulses intact. Absent: cyanosis, clubbing, calf tenderness - Dressing Comments: proximal telfa dressing with scant bloody drainage, mepilex c/d/i, distal telfa dressing c/d/i. - Neurological Exam Present: intact to light touch, no deficits Full ROM of right foot. sensation intact to light touch - Labs Result Diagrams: 10/05/17 16:35 10/05/17 03:59 Abnormal lab results 10/04/17 10/05/17 10/05/17 Range/Units 11:18 03:59 03:59 RBC 2.71 L (4.00-5.20) M/MM3 Hgb 7.9 L D (12-16) GM/DL Hct 24.6 L D (36-46) % Neut % (Auto) 77.4 H (33-66) % Lymph % (Auto) 13.3 L (23-45) % Blackford % (Auto) 9.2 H (0-9.0) % [place]ford # (Auto) 0.9 H (0-0.8) T/MM3 Chloride 113 H (98-107) MEQ/L BUN 21.0 H (7-17) MG/DL Glucose 135 H (65-110) MG/DL Calculated Osmolality 284 H (261-280) MOSM/KG Calcium 7.9 L D (8.4-10.2) MG/DL Total Creatine Kinase 760 H (30-135) U/L Crossmatch (AHG) See Detail 10/05/17 Range/Units 16:35 RBC (4.00-5.20) M/MM3 Hgb 8.5 L (12-16) GM/DL Hct (36-46) % Neut % (Auto) (33-66) % Lymph % (Auto) (23-45) % Blackford % (Auto) (0-9.0) % [place]ford # (Auto) (0-0.8) T/MM3 Chloride (98-107) MEQ/L BUN (7-17) MG/DL Glucose (65-110) MG/DL Calculated Osmolality (261-280) MOSM/KG Calcium (8.4-10.2) MG/DL Total Creatine Kinase (30-135) U/L Crossmatch (AHG) H & H 10/04/17 10/05/17 10/05/17 Range/Units 11:18 03:59 16:35 Hgb 11.7 L 7.9 L D 8.5 L (12-16) GM/DL Hct 35.2 L 24.6 L D (36-46) % Orthopedic Assessment and Plan (1) Right femoral fracture Status: Acute Qualifiers: Encounter type: initial encounter Femur location: subtrochanteric Fracture type: closed Fracture alignment: displaced Qualified Code(s): S72.21XA - Displaced subtrochanteric fracture of right femur, initial encounter for closed fracture Assessment and Plan: Current anti-coagulation protocol with Lovenox for VTE prophylaxis. SCD's for added protection. PT/OT services to improve independent function. Discharge Planning per Case Management. Patient does have edema of right thigh, encouraged to elevate while in bed. - Anticoagulation Therapy Anticoagulation: Lovenox 40 mg SQ Daily x 30 days from day of surgery Hospital Course Summary Disclaimer: The visit summary below is not to be considered part of the above Progress Note. Hospital Course: 10/04/17 ADMIT and OP DAY Admit, inpatient status, under the hospitalist service. Dr. Logan consulted from the ED, and is planning on ORIF today. Patient is medically cleared. Suspect leukocytosis is a stress response rather than suggestion of infection. Monitor hgb, mild anemia noted on admission. She will need work up for pulmonary nodular opacity, if she wishes to proceed - this may be done in outpatient setting. Speech therapy eval in addition to PT/OT given reports of intermittent aspiration. DC Salvador ALAINA. Patient reports low tolerance to narcotics - will have lower doses available and non-narcotic options. Advanced directives: +DPOA, +Living will, DNR. 10/05/17 POD # 1 Hemoglobin with decrease from 11.3 to 7.9; will give [address] improving - can decrease IVF to 75 cc/hr. Vitamin D level low normal. Will start Ca with Vit D BID and Vit D 1000 units daily. PT/OT initiated to help increase strength and functional status. CM to help with discharge disposition for continued rehabilitation. Continue with bowel motivation. Encourage pulmonary toilet - IS, deep breathing.
[2017-10-05] MEDS ORDERED: SENNOSIDES 8.6 MG TABLET PO PRN (18:31)
[2017-10-05] MEDS: ENOXAPARIN 40 MG/0.4 ML INJECTION SQ SCH (21:31)
[2017-10-05] MEDS: SERTRALINE 100 MG TABLET PO SCH (21:31)
[2017-10-05] MEDS: MELATONIN 5 MG TABLET PO SCH (21:31)
[2017-10-05] MEDS: CALCIUM 600 + VIT D 400 TABLET PO SCH (21:32)
[2017-10-05] MEDS: SENNOSIDES 8.6 MG TABLET PO SCH (21:32)
[2017-10-05] MEDS: MIRTAZAPINE 15 MG TABLET PO SCH (21:32)
[2017-10-06] MEDS: NS 1,000 ML IV SCH ×2 (00:53→02:57)
[2017-10-06] MEDS: LORATADINE 10 MG TABLET PO SCH (06:05)
[2017-10-06] MEDS: NOZIN NASAL SWAB NAS SCH (06:05)
[2017-10-06] MEDS: OMEPRAZOLE 20 MG CAPSULE PO SCH (06:05)
[2017-10-06] MEDS: LEVOTHYROXINE 25 MCG TABLET PO SCH (06:05)
[2017-10-06 07:51] VITALS: BP 136/71; PULSE 83; RESP 16; TEMP 98.9; O2SAT 96
--- NOTE | 2017-10-06 08:16 | Orthopedic Progress Note ---
Date: Date: 10/06/17 Time: 813 Subjective/Severity of Illness: Arabella is lying in bed this morning during rounds. She reports her right hip pain has been well controlled with Tylenol. Her tingling of right foot has resolved since yesterday afternoon. Denies any CP, SOA, nausea. Hgb remains stable at 8.5 this morning. Anticipated discharge to IRU today. Orthopedic Exam Vital signs: Temperature 98.0 F 10/05/17 15:30 Pulse Rate 90 10/05/17 15:30 Respiratory Rate 16 10/05/17 15:30 Blood Pressure 104/57 10/05/17 15:30 Pulse Oximetry 100 10/05/17 15:30 - Constitutional General Appearance: Present: alert, orientated x3 - Respiratory Exam Present: non-labored - Cardiovascular Exam Present: pedal pulses intact - Abdominal Exam Present: soft. Absent: tenderness, distended - Extremities Exam Present: edema (To right thigh and leg), pulses intact. Absent: cyanosis, clubbing - Dressing Dressing: dry, intact, no drainage Comments: mepilex left lateral thigh, proximal telfa with scant bloody drainage, distal telfa dressing c/d/i - Integumentary Exam Present: pink, warm, dry - Neurological Exam Present: intact to light touch, no deficits - Psychiatric Exam Present: alert, oriented - Labs Result Diagrams: 10/06/17 04:19 10/06/17 04:19 Abnormal lab results 10/04/17 10/05/17 10/06/17 Range/Units 11:18 16:35 04:19 RBC 2.88 L (4.00-5.20) M/MM3 Hgb 8.5 L 8.5 L (12-16) GM/DL Hct 26.1 L (36-46) % Chloride (98-107) MEQ/L BUN (7-17) MG/DL BUN/Creatinine Ratio (6-26) RATIO Glucose (65-110) MG/DL Calculated Osmolality (261-280) MOSM/KG Calcium (8.4-10.2) MG/DL Total Creatine Kinase (30-135) U/L Crossmatch (AHG) See Detail 10/06/17 Range/Units 04:19 RBC (4.00-5.20) M/MM3 Hgb (12-16) GM/DL Hct (36-46) % Chloride 114 H (98-107) MEQ/L BUN 22.0 H (7-17) MG/DL BUN/Creatinine Ratio 28 H (6-26) RATIO Glucose 113 H (65-110) MG/DL Calculated Osmolality 285 H (261-280) MOSM/KG Calcium 8.3 L (8.4-10.2) MG/DL Total Creatine Kinase 928 H (30-135) U/L Crossmatch (AHG) H & H 10/04/17 10/05/17 10/05/17 Range/Units 11:18 03:59 16:35 Hgb 11.7 L 7.9 L D 8.5 L (12-16) GM/DL Hct 35.2 L 24.6 L D (36-46) % 10/06/17 Range/Units 04:19 Hgb 8.5 L (12-16) GM/DL Hct 26.1 L (36-46) % Orthopedic Assessment and Plan (1) Right femoral fracture Status: Acute Qualifiers: Encounter type: initial encounter Femur location: subtrochanteric Fracture type: closed Fracture alignment: displaced Qualified Code(s): S72.21XA - Displaced subtrochanteric fracture of right femur, initial encounter for closed fracture Assessment and Plan: Current anti-coagulation protocol with Lovenox for VTE prophylaxis. SCD's for added protection. PT/OT services to improve independent function. Discharge Planning per Case Management. Anticipated discharge to IRU today. - Anticoagulation Therapy Anticoagulation: Lovenox 40 mg SQ Daily x 30 days from day of surgery Hospital Course Summary Disclaimer: The visit summary below is not to be considered part of the above Progress Note. Hospital Course: 10/04/17 ADMIT and OP DAY - Open reduction internal fixation with cephalomedullary katerin and cerclage wires to right subtrochanteric hip fracture. Admit, inpatient status, under the hospitalist service. Dr. Logan consulted from the ED, and is planning on ORIF today. Patient is medically cleared. Suspect leukocytosis is a stress response rather than suggestion of infection. Monitor hgb, mild anemia noted on admission. She will need work up for pulmonary nodular opacity, if she wishes to proceed - this may be done in outpatient setting. Speech therapy eval in addition to PT/OT given reports of intermittent aspiration. DC Salvador ALAINA. Patient reports low tolerance to narcotics - will have lower doses available and non-narcotic options. Advanced directives: +DPOA, +Living will, DNR. 10/05/17 POD # 1 Hemoglobin with decrease from 11.3 to 7.9; will give [address] improving - can decrease IVF to 75 cc/hr. Vitamin D level low normal. Will start Ca with Vit D BID and Vit D 1000 units daily. PT/OT initiated to help increase strength and functional status. CM to help with discharge disposition for continued rehabilitation. Continue with bowel motivation. Encourage pulmonary toilet - IS, deep breathing.
[2017-10-06] MEDS: DOCUSATE SODIUM 100 MG CAPSULE PO SCH (08:41)
[2017-10-06] MEDS: ACETAMINOPHEN 325 MG TABLET PO SCH (08:41)
[2017-10-06] MEDS: POLYETHYL GLYCOL 3350 17gm PACKET PO SCH (08:41)
[2017-10-06] MEDS: CALCIUM 600 + VIT D 400 TABLET PO SCH (08:41)
[2017-10-06] MEDS ORDERED: MULTI-VITAMIN PLAIN TABLET PO SCH (09:00)
--- NOTE | 2017-10-06 09:16 | Progress Note ---
- Date 10/06/17 Subjective: F/U: Right femur fracture with extension into intertrochanteric region Arabella is seen this morning while eating breakfast. She has a pleasant disposition. She reports that she slept well but does admit to some right hip pain, especially with movement. She just received Tylenol and refused any other pain control at this this time. She denies any other concerns or complains. Hemoglobin remains stable at 8.5 after receiving 1 unit PRBC on . She also states that the tingling in her feet, right worse than the left, has returned this morning since sitting in her recliner. No chest pain, shortness of breath, abdominal pain, nausea or vomiting. Appetite is stable and she feels like she is going to have a BM this morning. Plan to discharge to IRU today. Objective Vital signs: Temperature 98.9 F 10/06/17 07:50 Pulse Rate 83 10/06/17 07:50 Respiratory Rate 16 10/06/17 07:50 Blood Pressure 136/71 10/06/17 07:50 Pulse Oximetry 96 10/06/17 07:50 Height/Weight/BMI: Height 4 ft 11 in Weight 134 lb 7.712 oz Body Mass Index 25.0 Comments: Sitting in recliner, eating breakfast. - Constitutional Present: no acute distress, well nourished, well developed, cooperative - Routine HEENT Exam Head: Present: normocephalic, atraumatic Eye: Present: PERRL. Absent: conjunctival icterus ENT: Present: mucous membranes moist, oropharynx clear - Routine Respiratory Exam Present: CTA bilaterally. Absent: respiratory distress, wheezes - Routine Cardiovascular Exam Present: RRR, S1, S2, murmur - Routine Abdominal Exam Present: soft, normoactive bowel sounds, non tender - Routine Extremities Exam Present: no edema, pulses intact - Routine Back/Spine/Pelvis Exam Back/Spine: Present: full ROM. Absent: vertebral tenderness - Routine Musculoskeletal Exam Musculoskeletal: Present: no clubbing or cyanosis, moving extremities well - Routine Skin Exam Present: dry, warm Comments: Afebrile - Routine Neurological Exam Present: alert, oriented X3, moving all extremities, hearing grossly intact, normal speech - Routine Lymphatic Exam Lymphatic: Absent: lymphedema - Routine Psychiatric Exam Present: cooperative Results - Labs CBC & Chem 7: 10/06/17 04:19 08/08/18 04:19 Assessment and Plan (1) Right femoral fracture Current visit: Yes Status: Acute Assessment and Plan: Assessment S/P ORIF for right femur fracture with extension into intertrochanteric region - 10/04/17, Dr. Logan. 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 Plan to discharge to IRU today for continued therapies. Hemoglobin stable at 8.5 following 1 unit PRBC on 10/05/17. Continue to monitor. Oral drive continues to improve and she is passing gas. Continue with bowel motivation. Vitamin D level low normal. Continue Ca with Vit D BID and Vit D 1000 units daily. Encourage pulmonary toilet - IS, deep breathing. Continue to encourage therapies for strengthening. DVT Prophylaxis: SCD's GI Prophylaxis: Omeprazole Resuscitation Status: Do Not Resuscitate - Time spent with patient Time with patient PN: 30 minutes - Physician Narrative Physician: Von Rosa MD Narrative: Date: 10/06/17 Time: 1100 Have independently interviewed & examined pt. Chart reviewed. Case discussed with CM & my PA. Care plan developed with my supervision; agree with above. Doing well today. Does have pain to right hip/leg, but manageable-using Tylenol for pain control. Therapy challenging due to discomfort, but working with them. Eating well-no nausea or ab pain. Passing flatus, but no stool. Breathing well. Does feel ready to go to IRU to continue her rehabilitation. Lungs: clear CV: regular AB: soft nt/nd BS decreased MSE: awake alert appropriate Plan: Medically stable for discharge to IRU. Will remove Salvador and can stop IVF. Continue with bowel motivation and pain control. Encourage participation with rehabilitation. Will need to continue to monitor hemoglobin due to anemia- with extensive fracture and surgery blood loss still a concern. Dr Lucas to follow on IRU for rehabilitation care. Will need follow up with Dr Auguste 1 week after discharge from IRU. See orders for details. Hospital Course Summary Disclaimer: The visit summary below is not to be considered part of the above Progress Note. Hospital Course: 10/04/17 ADMIT and OP DAY - Open reduction internal fixation with cephalomedullary katerin and cerclage wires to right subtrochanteric hip fracture. Admit, inpatient status, under the hospitalist service. Dr. Logan consulted from the ED, and is planning on ORIF today. Patient is medically cleared. Suspect leukocytosis is a stress response rather than suggestion of infection. Monitor hgb, mild anemia noted on admission. She will need work up for pulmonary nodular opacity, if she wishes to proceed - this may be done in outpatient setting. Speech therapy eval in addition to PT/OT given reports of intermittent aspiration. DC Salvador ALAINA. Patient reports low tolerance to narcotics - will have lower doses available and non-narcotic options. Advanced directives: +DPOA, +Living will, DNR. 10/05/17 POD # 1 Hemoglobin with decrease from 11.3 to 7.9; will give [address] improving - can decrease IVF to 75 cc/hr. Vitamin D level low normal. Will start Ca with Vit D BID and Vit D 1000 units daily. PT/OT initiated to help increase strength and functional status. CM to help with discharge disposition for continued rehabilitation. Continue with bowel motivation. Encourage pulmonary toilet - IS, deep breathing. 10/06/17 POD #2 Overall, patient appears to be doing well. Plan to discharge to IRU today for continued therapies. Hemoglobin stable at 8.5 following 1 unit PRBC on 10/05/17. Continue to monitor. Oral drive continues to improve and she is passing gas. Continue with bowel motivation. Vitamin D level low normal. Continue Ca with Vit D BID and Vit D 1000 units daily. Encourage pulmonary toilet - IS, deep breathing. Continue to encourage therapies for strengthening. Medically stable for discharge to IRU. Will remove Salvador and can stop IVF. Continue with bowel motivation and pain control. Will need to continue to monitor hemoglobin due to anemia-with extensive fracture and surgery blood loss still a concern. Dr Lucas to follow on IRU for rehabilitation care. Will need follow up with Dr Auguste 1 week after discharge from IRU. See orders for details.
--- NOTE | 2017-10-06 18:22 | Discharge Summary ---
Discharge Information Date of admission: 10/04/17 12:39 Anticipated date of discharge: 10/06/17 Attending Physician: Von Rosa MD Primary care physician: Drew Pereira MD Consults: Physician Consult: Danny Logan Reason For Exam: Hip/femur fx Consult to Anesthesiology [CONS] Routine Reason For Exam: Preoperative Assessment DME-Walker [CONS] Routine Height: 1.5 m Weight: 56.1 kg - Discharge Diagnosis (1) Right femoral fracture Status: Acute Problems Reviewed?: Yes Discharge diagnosis Right femur fracture with extension into intertrochanteric region Associated conditions and complications Leukocytosis (POA) stress reaction, resolved Acute blood loss anemia Normocytic anemia Nodular opacity peripheral aspect of the right midlung measuring 1.6 x 0.7 cm - new finding 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 POSTOPERATIVE DIAGNOSIS: Same. PROCEDURE: Open reduction internal fixation with cephalomedullary katerin and cerclage wires to right subtrochanteric hip fracture. Physician: Dr Logan Transfusion 1 unit pRBC given on 10/05/17 - Laboratory Labs: Admit Lab 10/04/17 11:18 WBC 12.8 H Hgb 11.7 L Hct 35.2 L MCV 89.3 Plt Count 261 Neut % (Auto) 80.7 H Lymph % (Auto) 11.9 L [place] % (Auto) 5.9 Eos % (Auto) 1.1 Baso % (Auto) 0.2 Admit Lab 10/04/17 11:18 Sodium 146 Potassium 3.9 Chloride 110 H Carbon Dioxide 25 Anion Gap 11 BUN 18.0 H Creatinine 0.8 GFR Calculation 68 BUN/Creatinine Ratio 23 Glucose 135 H Calculated Osmolality 285 H Calcium 8.8 Total Bilirubin 0.70 AST 28 ALT 17 Alkaline Phosphatase 63 Total Creatine Kinase 141 H Troponin I < 0.012 Total Protein 6.6 Albumin 4.0 Globulin 2.6 Albumin/Globulin Ratio 1.5 TSH 3.18 Vitamin D Lab 10/05/17 03:59 25-OH Vitamin D Total 28.2 10/06/17 04:19 10/06/17 04:19 - Radiology Radiology: Date of Exam: 10/04/17 Type of Exam: CT cervical spine wo con FINDINGS: The cervical vertebral bodies are mildly demineralized. Coronal and sagittal reconstruction images shows cervical vertebral bodies are in good alignment without evidence of compression fracture deformity or subluxation. The facet and uncovertebral joints maintain good alignment. There is prominent facet joint arthrosis in the mid to lower cervical spine right greater than left. The cervical lordosis is well-maintained. There is no prevertebral soft tissue swelling. The odontoid process is intact, and there is good alignment of the lateral masses of C1 with respect to the body of C2. There is severe narrowing of the C4-C5 disc space and mild to moderate narrowing of the remaining disc spaces. The axial images show the bony central canal caliber is well maintained but there is mild to moderate bony neural foraminal narrowing in the mid to lower cervical spine, which appears most prominent from C3-C4 through C5-C6. The pedicles, lamina, transverse and spinous processes appear intact at each level. Limited imaging through the lung apices showed no acute parenchymal process. Moderate arteriosclerotic plaque formation is seen in the left carotid artery bifurcation and there is mild arteriosclerotic plaque in the right carotid artery bifurcation. IMPRESSION: 1. No CT evidence of acute fractures or malalignments in the cervical spine region. 2. Mild to moderate degenerative cervical spondylosis with the exception of severe degenerative disc narrowing at C4-C5. 3. Mild to moderate bony neural foraminal narrowing in the mid to lower cervical spine. 4. Bilateral carotid artery bifurcation ASVD left greater than right. Date of Exam: 10/04/17 Type of Exam: CT head/brain wo con There is diffuse cortical atrophy. There is proportionate prominence of the ventricles. The ventricles are midline without evidence of mass effect or shift. There is normal mackenzie-white matter differentiation. There is no evidence of acute intracranial hemorrhage or acute transcortical infarct. There is extensive periventricular white matter hypoattenuation likely reflecting chronic small vessel ischemic change. No extra-axial masses or fluid collections are seen. There is a small midline occipital scalp contusion. The bony calvarium appears intact. The visualized portions of the paranasal sinuses and mastoid air cells are clear. IMPRESSION: 1. No CT evidence of acute intracranial process. 2. Diffuse cortical atrophy and extensive periventricular white matter chronic small vessel ischemic change. 3. Small midline occipital scalp contusion. Date of Exam: 10/04/17 Type of Exam: XR chest 1V FINDINGS: The cardiomediastinal silhouette is normal. The mediastinum is not widened. The trachea is midline. The pulmonary vascularity is not engorged. The lung orellana mildly hyperexpanded showing increased interstitial markings that appear chronic. No acute consolidating infiltrates are seen. There is a faint nodular opacity peripheral aspect of the right midlung measuring 1.6 x 0.7 cm, not definitively seen on the prior imaging. The costophrenic angles are sharp. The bony thorax is stable again showing old healed right-sided rib fracture deformities and two level vertebral plasty changes in the lumbar spine. IMPRESSION: 1. Chronic emphysematous lung changes. 2. Follow-up with PA and lateral views of the chest is recommended. This density persists on the follow-up imaging then CT scan of the chest would be warranted. 3. No definite acute focal infiltrates. Date of Exam: 10/04/17 Type of Exam: XR femur RT 2V FINDINGS: The osseous structures of the right femur are mildly demineralized. Anatomic alignment is maintained at the articular surfaces. There is a acute severely comminuted spiral fracture of the proximal shaft of the right femur. This fracture extends into the region of the intertrochanteric region with resultant displaced avulsion fracture of the lesser trochanter of the right femur. There is a trochanteric fracture fragment is superiorly displaced 2 cm and medially displaced 1 cm. There is 100% posterior shaft width displacement of the distal femoral shaft fracture fragments with respect to the proximal. There is also 4 cm femoral shaft of overriding at the fracture site. IMPRESSION: 1. Acute displaced spiral fracture of the proximal shaft of the right femur as described. There is extension of the fracture into the intertrochanteric region and resultant displaced avulsion fracturing of the lesser trochanter. Date of Exam: 10/04/17 Type of Exam: XR pelvis 1-2V FINDINGS: The osseous structures of the bony pelvis are in normal anatomic alignment at the articular surfaces. The osseous structures are moderately demineralized. The SI joints are symmetrical and the sacral arcuate lines appear to be intact. There is no evidence of symphyseal diastases of degenerative changes are noted about the bony pelvis. L3 vertebral plasty changes are visualized. Degenerative changes are seen in the lower lumbar spine. Partially visualized comminuted displaced fracture proximal shaft right femur. Please see separately dictated report of the right femur series performed 2017 for details. IMPRESSION: 1. Severely comminuted displaced fracture of the proximal shaft of the right femur. 2. No acute bony trauma involving the bony pelvis. 3. L3 vertebral plasty changes. 4. Degenerative changes. History of Present Illness HPI: Arabella Mariscal is an 86-year-old woman who lives independently, though has home health aids check on her regularly. She has a history of dizziness and frequent falls. Early this morning around 2 AM she walked with her 3-point walker to the bathroom. She fell, though she cannot recall the specifics, but ended up falling and striking her head. She believes that she briefly lost consciousness. She injured her right hip. She was unable to get up and remained on the floor until her home health aid, Paty, found her at 0945. According to Paty, her walker was tangled up in the rug, making it appear that she might have tripped. Prior to this fall, she reports that she's been in her usual state of health. She has had a recent surgery to the tear duct of her left eye and still has a drain in place. Ever since her stroke, she's had some problems with processing and recalling information, and both the patient and Paty admit that she is occasionally confused. She occasionally has constipation. She has allergy-induced sinus drainage/congestion which is controlled with Flonase. She occasionally chokes when eating. Otherwise, she denies any fever/chills, cough, chest pain, palpitations, dyspnea, abdominal pain, nausea or vomiting, dysuria, leg swelling, rashes, or paresthesias. Paty activated 911 and Arabella was transferred to [facility]. Multiple imaging studies were done, including CT head and C-spine, both of which were negative for acute processes. However, she was found to have bilateral carotid artery bifurcation and on her chest x-ray, a new nodular opacity was noted to the right midlung. X-rays of her right hip revealed a spiral fracture of the right femur which extended into the intertrochanteric region. White count was elevated at 12.8, hemoglobin slightly low at 11.7. CMP was unremarkable. Creatinine kinase was slightly elevated at 141. A Salvador catheter was inserted. Urinalysis was negative for UTI. She was given fentanyl for pain management. Dr. Logan and Dr. Rosa were both contacted, and the patient was admitted to inpatient status under the hospitalist service. Dr. Logan is planning on surgical fixation later today. For complete details of the H&P refer to that document. Objective Vital signs: Temperature 98.9 F 10/06/17 07:50 Pulse Rate 83 10/06/17 07:50 Respiratory Rate 16 10/06/17 07:50 Blood Pressure 136/71 10/06/17 07:50 Pulse Oximetry 96 10/06/17 07:50 Height/Weight/BMI: Height 1.5 m Weight 61 kg Body Mass Index 25.0 Hospital Course This is a general summary of the patient's hospital course. For more details refer to the complete medical record. Hospital course: 10/04/17 ADMIT and OP DAY - Open reduction internal fixation with cephalomedullary katerin and cerclage wires to right subtrochanteric hip fracture. Admit, inpatient status, under the hospitalist service. Dr. Logan consulted from the ED, and is planning on ORIF today. Patient is medically cleared. Suspect leukocytosis is a stress response rather than suggestion of infection. Monitor hgb, mild anemia noted on admission. She will need work up for pulmonary nodular opacity, if she wishes to proceed - this may be done in outpatient setting. Speech therapy eval in addition to PT/OT given reports of intermittent aspiration. DC Salvador ALAINA. Patient reports low tolerance to narcotics - will have lower doses available and non-narcotic options. Advanced directives: +DPOA, +Living will, DNR. 10/05/17 POD # 1 Hemoglobin with decrease from 11.3 to 7.9; will give [address] improving - can decrease IVF to 75 cc/hr. Vitamin D level low normal. Will start Ca with Vit D BID and Vit D 1000 units daily. PT/OT initiated to help increase strength and functional status. CM to help with discharge disposition for continued rehabilitation. Continue with bowel motivation. Encourage pulmonary toilet - IS, deep breathing. 10/06/17 POD #2 Overall, patient appears to be doing well. Plan to discharge to IRU today for continued therapies. Hemoglobin stable at 8.5 following 1 unit PRBC on 10/05/17. Continue to monitor. Oral drive continues to improve and she is passing gas. Continue with bowel motivation. Vitamin D level low normal. Continue Ca with Vit D BID and Vit D 1000 units daily. Encourage pulmonary toilet - IS, deep breathing. Continue to encourage therapies for strengthening. Medically stable for discharge to IRU. Will remove Salvador and can stop IVF. Continue with bowel motivation and pain control. Will need to continue to monitor hemoglobin due to anemia-with extensive fracture and surgery blood loss still a concern. Dr Lucas to follow on IRU for rehabilitation care. Will need follow up with Dr Auguste 1 week after discharge from IRU. See orders for details. Medications listed below under NO ACTION include new medications continued on IRU. Time spent with patient: discharge greater than 30 minutes Resuscitation Status: Do Not Resuscitate Discharge Plan - Discharge Disposition Discharge Date: 10/06/17 Disposition: 61 To [facility] *Condition: Stable Reason For Visit (Visit label in EMR): Hip / Femoral Fracture - Discharge Medications *Discharge Medications: Continue RX: Omeprazole Magnesium [Prilosec Otc] 20 mg PO ACB #0 RX: Levothyroxine Sodium 25 mcg PO ACB #0 RX: Mirtazapine [Remeron] 7.5 mg PO HS RX: Melatonin 5 mg PO HS RX: Sertraline [Zoloft] 100 mg PO HS RX: Loratadine [Claritin] 10 mg PO DAILY RX: Tramadol [Ultram] 50 - 100 mg PO Q6HR PRN PRN Reason: Pain RX: Propranolol [Inderal] 40 mg PO BID RX: Multivitamin [One Daily Multivitamin] 1 tab PO DAILY No Action Sennosides [Senna Lax] 17.2 mg PO PRN PRN PRN Reason: Constipation Sennosides [Senna Lax] 17.2 mg PO HS Milk of Magnesia [Mom] 30 ml PO PRN PRN PRN Reason: Constipation PEG 3350 17gm PACKET [Miralax] 17 gm PO DAILY Enoxaparin [Lovenox] 40 mg SQ Q24H Bisacodyl Supp [Dulcolax] 10 mg [place] PRN Docusate Sodium [Colace] 1 cap PO BID Calcium 600 + D [Caltrate + D] 1 tab PO BID Cholecalciferol [Vit. D-3] 1 tab PO DAILY Acetaminophen [Acetaminophen 8 Hour] 650 mg PO QID - Discharge Packet/Instructions *Diet: Resume normal diet as tolerated *Activity: Continue the exercises you were given in the hospital three times a day. Your therapist will provide you with a home therapy program prior to your hospital discharge. As you feel stronger, increase the number of repetitions you do in each session. Please check with us before you swim, use a whirlpool, drive or ride a bicycle *Pain Management/Treatment: Ice packs may be used, and will also help with the pain. *Wound Care: In most cases, a Mepilex dressing will be placed at the time of surgery. This dressing will not need to be covered while showering. Leave dressing in place until your follow-up appointment as long as it remains clean, dry and stuck down well around the edges. Call your Doctor if you encounter a problem with your dressing. Please avoid submerging your incision until it is completely healed, once the Mepilex dressing is removed. This includes bathtubs , swimming pools, and hot tubs. DO NOT USE ALCOHOL, PEROXIDE, OR OINTMENTS of any kind on your incision. *Expected Signs/Symptoms: Some swelling around the incision, as well as in your feet and legs is normal. To help with this, elevate your feet on a footstool when sitting in a chair, and do the ankle pumps and circles whenever you are sitting still. Muscle action helps to move collected fluid out of the tissues and improve circulation. Ice packs may be used, and will also help with the pain. Report any persistent swelling, calf tenderness, increase in pain, or pain in the calf with warmth, or redness to your doctor. *Notify Physician if: Report any complications to my office immmediately. This includes excessive bleeding, wound breakdown, redness around the wound, uncontrolled pain, or fever over 101 on 3 different measurements. Eat a balanced diet and get plenty of rest. *During Business Hours Contact: If you have any questions or concerns, please call during regular office hours ([phone]). *After Business Hours Contact: If you have any problems or need to reach a physician after hours or on the weekend please call the hospital's main number [phone] to have your physician paged. *Pending Lab/Results: No Pending Lab - Referrals/Follow Up *Referrals/Follow Up: Mckay Lucas MD [Physician] - (Will follow patient while on IRU. ) Danny Logan MD [Physician] - 2 Weeks (Post op follow up for femur fracture - patient going to IRU. ) Drew Pereira MD [Primary Care Provider] - (Will need hospital follow up 1 week after discharge from IRU. ) - Patient Handouts Patient Handouts: Blood Transfusion (GEN), [facility] Postop Instructions - Dismissal Complete Discharge Instructions are:: Complete Physician Narrative - Narrative Physician: Von Rosa MD Attestation Narrative: Date: 10/06/17 Time: 1818 I have independently interviewed and examined patient prior to discharge. See my progress note for details. Medically stable for discharge to IRU.
[2017-10-06] MEDS ORDERED: BISACODYL 10 MG SUPPOSITORY RECTALLY SCH (20:00)
== END 2017-10-06 12:32 | DRG 481 ==
LOC: ED 11:04 → EDHOLD 12:39 → SRG 13:20
PROVIDERS: ADMIT Hospitalist; ATTEND Hospitalist

== ENCOUNTER 2017-10-06 13:12 | Inpatient (IN) ==
[2017-10-06] MEDS ORDERED: BISACODYL 10 MG SUPPOSITORY RECTALLY PRN (13:26)
[2017-10-06] MEDS ORDERED: NS FLUSH BAG 500ml IV PRN (13:26)
[2017-10-06] MEDS ORDERED: SENNOSIDES 8.6 MG TABLET PO PRN (13:26)
[2017-10-06] MEDS ORDERED: FALL RISK - PHARMACY CONSULT MC ONE (13:30)
[2017-10-06] MEDS: ACETAMINOPHEN 325 MG TABLET PO SCH ×3 (13:41→23:42)
[2017-10-06] MEDS: NOZIN NASAL SWAB NAS SCH ×2 (14:46→23:45)
[2017-10-06 15:45] VITALS: BMI 27.8
[2017-10-06] MEDS ORDERED: BISACODYL 10 MG SUPPOSITORY RECTALLY SCH (20:00)
[2017-10-06] MEDS: TRAMADOL 50 MG TABLET PO PRN (21:45)
[2017-10-06] MEDS: CALCIUM 600 + VIT D 400 TABLET PO SCH (23:43)
[2017-10-06] MEDS: ENOXAPARIN 40 MG/0.4 ML INJECTION SQ SCH (23:43)
[2017-10-06] MEDS: DOCUSATE SODIUM 100 MG CAPSULE PO SCH (23:43)
[2017-10-06] MEDS: PROPRANOLOL 20 MG TABLET PO SCH (23:44)
[2017-10-06] MEDS: SERTRALINE 100 MG TABLET PO SCH (23:44)
[2017-10-06] MEDS: MIRTAZAPINE 15 MG TABLET PO SCH (23:44)
[2017-10-06] MEDS: MELATONIN 5 MG TABLET PO SCH (23:44)
[2017-10-06] MEDS: SENNOSIDES 8.6 MG TABLET PO SCH (23:44)
[2017-10-07] MEDS: OMEPRAZOLE 20 MG CAPSULE PO SCH (06:16)
[2017-10-07] MEDS: LEVOTHYROXINE 25 MCG TABLET PO SCH (06:16)
[2017-10-07] MEDS: NOZIN NASAL SWAB NAS SCH ×3 (06:16→21:00)
[2017-10-07] MEDS: LORATADINE 10 MG TABLET PO SCH (06:16)
[2017-10-07] MEDS: CALCIUM 600 + VIT D 400 TABLET PO SCH ×2 (08:44→20:58)
[2017-10-07] MEDS: ACETAMINOPHEN 325 MG TABLET PO SCH ×4 (08:44→20:57)
[2017-10-07] MEDS: MULTI-VITAMIN PLAIN TABLET PO SCH (08:45)
[2017-10-07] MEDS: DOCUSATE SODIUM 100 MG CAPSULE PO SCH ×2 (08:45→20:58)
[2017-10-07] MEDS: POLYETHYL GLYCOL 3350 17gm PACKET PO SCH (08:46)
[2017-10-07] MEDS: PROPRANOLOL 20 MG TABLET PO SCH ×2 (08:46→21:01)
--- NOTE | 2017-10-07 10:29 | IRU 24Hr Post Admit Eval ---
24 Hr Post Admission Physical - Relevant Changes Relevant Changes: No Reviewed: I have reviewed the patient's information and concur with the finding and results of the pre-admission screen. Certification: I certify the patient for rehabilitation. - Patient Condition (1) Status post closed fracture of right femur Status: Acute Code(s): Z87.81 - Personal history of (healed) traumatic fracture Classification: Present on IRF Admission, IRF Tx That Should Address Diagnosis, Diagnosis Requiring Medical Follow Up (2) Acute blood loss anemia Status: Acute Code(s): D62 - Acute posthemorrhagic anemia Classification: Present on IRF Admission, IRF Tx That Should Address Diagnosis (3) Hypertension Status: Chronic Qualifiers: Hypertension type: essential hypertension Qualified Code(s): I10 - Essential (primary) hypertension Code(s): I10 - Essential (primary) hypertension Classification: Present on IRF Admission, IRF Tx That Should Address Diagnosis, Diagnosis Requiring Medical Follow Up (4) Elevated CK Status: Acute Code(s): R74.8 - Abnormal levels of other serum enzymes Classification: Present on IRF Admission, IRF Tx That Should Address Diagnosis, Diagnosis Requiring Medical Follow Up - Prior Functional Status Lives With: Alone Residence Type: Apartment/Private Home Assitive Devices: Front Wheeled Walker Prior Functional Status: Indep. at home or school, Indep. w/ IADL - Current Functional Status Current Level of Function: Currently this patient requires maximum assistance for grooming and bathing. She requires total assistance for dressing both upper and lower body. She requires total assistance for transfers including toilet transfers. She requires total assistance for walking with a rolling walker two feet. Failed Alternative Therapy: Arrived from Acute Care Patient Requirements: The patient requires oversight by rehabilitation physician to manage their rehabilitation treatment plan and multidisciplinary approach to care that can only be provided in an IRF and requires a multidisciplinary approach to care, provided by professional PTs, OTs, STs, dieticians, RTs, rehabilitation nurses and is not available in lesser levels of care. Limitations Req: Mobility Impairment, ADL Impairment Physical Therapy Minutes: 90 Occupational Therapy Minutes: 90 Therapy: The patient is to receive therapy at least 5 days a week. ROM Deficit: Right Lower Extremity - Complications/Comorbidities Impact on Functional Outcomes: Patient's history of TIA/CVA with some expressive dysphasia may negatively impact her functional outcome. Barriers to Discharge: Weakness, Balance, Endurance - Plan to Avoid Complications Plan to Avoid Complications: The patient cannot receive this care in a lesser intensive setting such as Senior Living or Outpatient Therapy due to the patient requiring the following : This patient has experienced acute blood loss anemia down to a hemoglobin of around 7.9 g percent. She requires close monitoring of her blood count as well as blood pressure and pulse in view of this anemia. In addition the patient requires a multidisciplinary approach with PT and OT and 24-hour nursing supervision to allow additional activity between therapy sessions. Because of the medical complexity, medical supervision is required.
--- NOTE | 2017-10-07 11:11 | Consult Note ---
Consult Information - Data of Consult Consult date: 10/07/17 Requesting Physician: Mckay Lucas MD Primary Care Provider: Drew Pereira MD - Consult Narrative Reason for consult: Medical management- HTN, [place] History of present illness: Arabella is a pleasant 86-year-old female who is known to the hospitalist services from recent acute admission following a right femoral neck fracture. Patient underwent a ORIF of right comminuted intertrochanteric fracture under the care of Dr. Logan on 10/04/17. Operatively she did have some anemia and was transfused with 1 unit of blood. Stable. Patient was screened and accepted to the inpatient rehabilitation unit for ongoing postoperative strengthening and improve function. Patient is seen this morning for medical consultation. She is alert, oriented and pleasant. She is finishing up breakfast. Overall states that she is feeling good with mild postoperative pain in the right hip. Having chest pain or shortness of breath. Note that she did cough and choke on her morning pills, which is not that uncommon for her. Labs reviewed, hemoglobin is down, this morning at 7.3. CK has peaked and is trending down, currently 880. Vital signs are normal. Past Medical History Medical History: Medical History (Last Updated 10/04/17 @ 13:51 by Nicole Valverde APRN) Allergic rhinitis Angiitis beta-type amyloid angiitis HTN (hypertension) Hypothyroidism Insomnia Osteoarthritis Stroke intolerance to statins and anticoagulants Surgical History: b/l bunionectomy, 2 hernia surgeries - inguinal, tonsillectomy , hysterectomy and BSO, vertebroplasty 08/15, left eye tear duct surgery Family History: Father -diabetes Strong family history of her disease Family History: As Above - Social History Smoking status: Never smoker Substance use type: does not use Alcohol intake frequency: does not drink Current occupational status: retired Current residence: Apartment/Private Home Social history: Primary care provider-Dr. Pereira Review of Systems All systems PM: 10-point ROS was reviewed, no additional remarkable complaints except - Musculoskeletal Musculoskeletal: Present: as per HPI, other (Postop right hip pain) Medications Home Medications Medication Instructions Recorded Confirmed Type Omeprazole Magnesium [Prilosec Otc] 20 mg PO ACB #0 06/05/10 10/06/17 History Levothyroxine Sodium 25 mcg PO ACB #0 02/08/16 10/06/17 History Loratadine [Claritin] 10 mg PO DAILY 04/26/17 10/06/17 History Melatonin 5 mg PO HS 04/26/17 10/06/17 History Mirtazapine [Remeron] 7.5 mg PO HS 04/26/17 10/06/17 History Multivitamin [One Daily 1 tab PO DAILY 04/26/17 10/06/17 History Multivitamin] Propranolol [Inderal] 40 mg PO BID 04/26/17 10/06/17 History Sertraline [Zoloft] 100 mg PO HS 04/26/17 10/06/17 History Tramadol [Ultram] 50 - 100 mg PO Q6HR PRN 10/04/17 10/06/17 History Acetaminophen [Acetaminophen 8 650 mg PO QID 10/06/17 10/06/17 History Hour] Bisacodyl Supp [Dulcolax] 10 mg [place] PRN 10/06/17 10/06/17 History Calcium 600 + D [Caltrate + D] 1 tab PO BID 10/06/17 10/06/17 History Cholecalciferol [Vit. D-3] 1 tab PO DAILY 10/06/17 10/06/17 History Docusate Sodium [Colace] 1 cap PO BID 10/06/17 10/06/17 History Enoxaparin [Lovenox] 40 mg SQ Q24H 10/06/17 10/06/17 History Milk of Magnesia [Mom] 30 ml PO PRN PRN 10/06/17 10/06/17 History PEG 3350 17gm PACKET [Miralax] 17 gm PO DAILY 10/06/17 10/06/17 History Sennosides [Senna Lax] 17.2 mg PO HS 10/06/17 10/06/17 History Sennosides [Senna Lax] 17.2 mg PO PRN PRN 10/06/17 10/06/17 History Allergies Allergy/AdvReac Type Severity Reaction Status Date / Time Sulfa (Sulfonamide AdvReac Unknown NAUSEA Verified 10/04/17 12:02 Antibiotics) blood thinners AdvReac Uncoded 04/26/17 15:59 narcotics AdvReac Cognitive Uncoded 04/26/17 16:01 Impairment Exam Vital Signs: Temperature 98.9 F 10/07/17 08:00 Pulse Rate 68 10/07/17 08:00 Respiratory Rate 18 10/07/17 08:00 Blood Pressure 122/68 10/07/17 08:00 Pulse Oximetry 96 10/07/17 08:00 Height/Weight/BMI: Height 1.5 m Weight 62.6 kg Body Mass Index 27.8 - Constitutional Present: no acute distress, well nourished, well developed - Routine HEENT Exam Eye: Present: EOMI ENT: Present: mucous membranes moist, dentition normal - Routine Respiratory Exam Present: CTA bilaterally. Absent: wheezes - Routine Cardiovascular Exam Present: RRR, S1, S2. Absent: murmur - Routine Abdominal Exam Present: soft, normoactive bowel sounds, non distended. Absent: tenderness - Routine Extremities Exam Present: tenderness (Right hip- post-op) - Routine Skin Exam Present: intact, dry, warm - Routine Neurological Exam Present: alert, oriented X3, CN II-XII intact - Routine Psychiatric Exam Present: normal affect, normal thought process, cooperative Results - Labs CBC & Chem 7: 10/07/17 04:39 10/07/17 04:39 Assessment and Plan (1) Status post closed fracture of right femur Current visit: Yes Status: Acute Assessment and Plan: Impression S/P ORIF right femur fracture. Postoperative anemia. 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 Lucas for ongoing rehabilitation Into need to monitor blood counts carefully. His patient did require 1 unit packed red blood cell transfusion postoperatively. Today, hemoglobin, down 7.3. Will recheck tomorrow morning and transfuse if </= 7 Monitor blood pressure, continue on Inderal Senna, Colace, milk of mag, MiraLAX for postoperative bowel motivation. Tramadol and Tylenol for postoperative pain control Lovenox Subcutaneous daily for DVT prophylaxis. Full anticoagulation is contraindicated given beta-type amyloid angiitis Hospitalist services will continue to follow patient medically manage existing comorbidities during her stay on the IRU unit. Time of discharge medical care will return to PCP, Dr. Pereira - Physician Narrative Physician: Latonya Esqueda MD Narrative: Date: 10/07/17 Time: 1814 I have independently evaluated and examined this patient. I reviewed the chart, the patient's history, and the JOURNEYMAN PIPEFITTER/PA's documented findings as above. We discussed and formulated the assessment and plan as above with additions as below: Mrs. Mariscal was seen in the dining room just before 5 PM with her son present. She reports ambulating with physical therapy earlier today despite pain. Her son reports she is intolerant of narcotics and can only take Tylenol. Patient was pleased with her progress despite the discomfort triggered by weightbearing. She had no other concerns at this time. Patient initially presented on 10/04 with spiral proximal right femur fracture extending into the IT region. NAD, alert, generalized pallor, oxygenating well on room air Respirations nonlabored, good airflow, breath sounds clear Regular rhythm, S1 and S2 Trace edema right ankle Hemoglobin 7.3; preoperatively 11.7 and patient previously transfused 1 unit packed red blood cells. Initiate iron gluconate but additional transfusions may be needed. Acute hospital records reviewed. Hospital Course Summary Disclaimer: The visit summary below is not to be considered part of the above Progress Note. Hospital Course: Impression S/P ORIF right hip fracture. Postoperative anemia. 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 Lucas for ongoing rehabilitation Into need to monitor blood counts carefully. His patient did require 1 unit packed red blood cell transfusion postoperatively. Today, hemoglobin, down 7.3. Will recheck tomorrow morning and transfuse if </= 7 Monitor blood pressure, continue on Inderal Senna, Colace, milk of mag, MiraLAX for postoperative bowel motivation. Tramadol and Tylenol for postoperative pain control Lovenox Subcutaneous daily for DVT prophylaxis. Full anticoagulation is contraindicated given beta-type amyloid angiitis Hospitalist services will continue to follow patient medically manage existing comorbidities during her stay on the IRU unit. Time of discharge medical care will return to PCP, Dr. Pereira
--- NOTE | 2017-10-07 14:36 | IRU History & Physical Report ---
HPI IRU Date: Date: 10/07/17 Time: 1433 Chief complaint: I fell and broke my hip HPI: Ms. Mariscal is a very pleasant 86-year-old female interviewed on acute inpatient rehabilitation. Referring physician is Von Rosa M.D. Primary care physician is Drew Pereira M.D. The patient reports that she got up about 2:00 in the morning to go to the bathroom. She used her walker which she normally does. She is not totally certain exactly what happened. She apparently lost her balance. She does report that she did hit her head and was momentarily unconscious. She does live alone in her own home. She was apparently on the floor from about that time (2 AM) until 9:45 AM at which time her home health aide, Paty, discovered her. According to Paty's report, it appears as though she was somehow tangled up in her walker and indeed had lost her balance and had fallen. She was brought to the emergency department on 10/04/2017 after she had fallen. She complained of right hip pain. Radiographs of the right hip demonstrated acute displaced spiral fracture of the proximal shaft of the right femur. There was extension of the fracture into the intratrochanteric region and had a resultant displaced avulsion fracture of the lesser trochanter. CT head and CT cervical spine revealed no acute process. Ms. Mariscal was taken to surgery on 10/04/[address] Aly Logan for open reduction internal fixation with cephalo-medullary katerin and cerclage wires to the right subtrochanteric hip fracture. She tolerated the procedure well but did experience acute blood loss anemia. Initial hemoglobin was 11.7. It has now dropped to 7.3 g percent. In addition she did have some leukocytosis at 12,000, felt to be a stress reaction. Her initial CPK was 141. It reached a maximum of 928 on 10/06/2017 and is now down to 880. Troponin is negative. Vitamin D level is 28.2. Her white count has normalized and her creatinine has remained stable along with her potassium. The patient states that she was basically independent to modified independent for all activities at home prior to this. She could walk with a rolling walker. She does live alone in her own home but with home health assistance. She has a ramp to get up into the home. Currently the patient requires supervision for eating but is maximum assistance for grooming and bathing. She requires total assistance for upper and lower body dressing, transfers, toilet transfers and walking with a rolling walker two feet. She is quite debilitated since the fracture. The following medical conditions are noted and require active monitoring and/or management: 1. Status post open reduction internal fixation of right hip fracture 2. Acute blood loss anemia (11.7 down to 7.3 g percent) 3. Benign essential hypertension 4. Rhabdomyolysis: Elevated CPK requiring adequate hydration and monitoring for acute kidney injury secondary to rhabdomyolysis The following therapies will be needed: 1. Physical therapy: for transfers and ambulation and stairs. 2. Occupational therapy: for ADL's and transfers. 3. Medical management: for the above conditions. 4. 24 hour Rehabilitation Nursing to monitor and address the following: The patient requires close monitoring of her blood pressure and pulse in view of the acute blood loss anemia, monitoring of muscle strength/weakness in view of the rhabdomyolysis and blood test monitoring of anemia and CPK. She requires activity between therapy sessions to improve her functional status and allow her move toward independence. [facility] Patient Stated Medical History Syncope Yes Transient Ischemic Attacks ( Yes TIA) Cataracts Yes Other HEENT Yes: blocked tear duct, sx scheduled for 04/2017 Heart Murmur Yes Hypertension Yes Pneumonia Yes Sleep Apnea No Constipation Yes: occasional Other GI Yes: heart burn, CONSTIPATION Hx Incontinence Yes Other Hematologic Yes: hx "blood clots" unable to state where. Osteoarthritis Yes Other Musculoskeletal Yes: TIA without residual Shingles Yes Anesthesia Reactions Yes: N/V Depression Yes Other Reproductive Yes: hysterectomy Clinic Medical History (Last Updated 10/04/17 @ 13:51 by Nicole Valverde APRN) Allergic rhinitis (Acute Medical) Angiitis (Acute Medical) beta-type amyloid angiitis HTN (hypertension) (Acute Medical) Hypothyroidism (Acute Medical) Insomnia (Acute Medical) Osteoarthritis (Acute Medical) Stroke (Acute Medical) intolerance to statins and anticoagulants Surgical History: b/l bunionectomy, 2 hernia surgeries - inguinal, tonsillectomy , hysterectomy and BSO, vertebroplasty 08/15, left eye tear duct surgery, ORIF right hip fracture (10/04/17) Family History: Patient reports that her father had diabetes but of heart disease. Mother of heart disease. Family History Updates: Strong family history of heart disease. Father had diabetes. - Social History Smoking status: Never smoker second hand exposure: No Substance use type: does not use Alcohol intake: never Alcohol intake frequency: does not drink Housing: house Household members: caregiver (4 hours a day) Current occupational status: retired Does patient use chewing tobacco?: No Current residence: Apartment/Private Home Social history: The patient states that she is a . Her was in the [employer] and they moved to [place] for a while. 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 She is now retired and lives alone but has home health assistance. Review of Systems - Constitutional Constitutional: Present: fatigue. Absent: anorexia, chills, fever(s), headache( s), lethargy, malaise, night sweats, weakness, weight gain, weight loss - EENMT Eyes: Absent: blurry vision, change in vision, diplopia Mouth/Throat: Absent: changes in swallowing, painful swallowing, change in taste , bleeding gums, change in voice - Cardiovascular Cardiovascular: Absent: chest pain, palpitations, syncope, dyspnea on exertion, orthopnea, edema, cyanosis, heart murmur Rhythm: Present: regular rhythm Vascular: Absent: intermittent claudication, pedal edema, unilateral swelling - Respiratory Respiratory: Absent: cough, dyspnea, hemoptysis, dyspnea on exertion, wheezing, pain on inspiration, chest congestion, excessive phlegm production - Gastrointestinal Gastrointestinal: Absent: abdominal pain, change in bowel habits, constipation, diarrhea, dyspepsia, dysphagia, early satiety, hematochezia, melena, nausea, vomiting - Musculoskeletal Musculoskeletal: Absent: abnormal gait, arthralgias, back pain, joint swelling, limited range of motion, muscle weakness - Integumentary/Breasts Integumentary: Absent: alopecia, erythema, lesions, pruritus, rash, jaundice - Neurological Neurological: Absent: abnormal gait, abnormal movements, abnormal speech, confusion, convulsions, dizziness, focal weakness, frequent falls, headache(s), loss of vision, memory loss, numbness, paresthesias, tremor(s) - Psychiatric Psychiatric: Absent: abnormal sleep pattern, anxiety, depression - Endocrine Endocrine: Absent: cold intolerance, flushing, heat intolerance, palpitations - Hematologic/Lymphatic Hematologic/Lymphatic: Absent: easy bleeding, easy bruising, lymphadenopathy - Allergic/Immunologic Allergic/Immunologic: Absent: urticaria Medications Home Medications Medication Instructions Recorded Confirmed Type Omeprazole Magnesium [Prilosec Otc] 20 mg PO ACB #0 06/05/10 10/06/17 History Levothyroxine Sodium 25 mcg PO ACB #0 02/08/16 10/06/17 History Loratadine [Claritin] 10 mg PO DAILY 04/26/17 10/06/17 History Melatonin 5 mg PO HS 04/26/17 10/06/17 History Mirtazapine [Remeron] 7.5 mg PO HS 04/26/17 10/06/17 History Multivitamin [One Daily 1 tab PO DAILY 04/26/17 10/06/17 History Multivitamin] Propranolol [Inderal] 40 mg PO BID 04/26/17 10/06/17 History Sertraline [Zoloft] 100 mg PO HS 04/26/17 10/06/17 History Tramadol [Ultram] 50 - 100 mg PO Q6HR PRN 10/04/17 10/06/17 History Acetaminophen [Acetaminophen 8 650 mg PO QID 10/06/17 10/06/17 History Hour] Bisacodyl Supp [Dulcolax] 10 mg [place] PRN 10/06/17 10/06/17 History Calcium 600 + D [Caltrate + D] 1 tab PO BID 10/06/17 10/06/17 History Cholecalciferol [Vit. D-3] 1 tab PO DAILY 10/06/17 10/06/17 History Docusate Sodium [Colace] 1 cap PO BID 10/06/17 10/06/17 History Enoxaparin [Lovenox] 40 mg SQ Q24H 10/06/17 10/06/17 History Milk of Magnesia [Mom] 30 ml PO PRN PRN 10/06/17 10/06/17 History PEG 3350 17gm PACKET [Miralax] 17 gm PO DAILY 10/06/17 10/06/17 History Sennosides [Senna Lax] 17.2 mg PO HS 10/06/17 10/06/17 History Sennosides [Senna Lax] 17.2 mg PO PRN PRN 10/06/17 10/06/17 History Allergies Allergy/AdvReac Type Severity Reaction Status Date / Time Sulfa (Sulfonamide AdvReac Unknown NAUSEA Verified 10/04/17 12:02 Antibiotics) blood thinners AdvReac Uncoded 04/26/17 15:59 narcotics AdvReac Cognitive Uncoded 04/26/17 16:01 Impairment Results IRU - Labs Labs: I have reviewed her acute inpatient record. Exam Vital Signs: Temperature 98.9 F 10/07/17 08:00 Pulse Rate 68 10/07/17 08:00 Respiratory Rate 18 10/07/17 08:00 Blood Pressure 122/68 10/07/17 08:00 Pulse Oximetry 96 10/07/17 08:00 Height/Weight/BMI: Height 1.5 m Weight 62.6 kg Body Mass Index 27.8 - Constitutional Present: no acute distress, well nourished, well developed, average body habitus , cooperative - Routine HEENT Exam Head: Present: normocephalic, atraumatic. Absent: cushingoid faces, abrasion, laceration, hematoma Eye: Present: EOMI, PERRL. Absent: conjunctival icterus, scleral injection, periorbital swelling, nystagmus ENT: Present: mucous membranes moist, oropharynx clear - Routine Neck Exam Present: supple, full ROM, trachea midline. Absent: lymphadenopathy, thyromegaly, tenderness, swelling - Routine Chest/Breast/Axilla Exam Chest wall: Absent: tenderness, mass Axillae: Absent: lymphadenopathy, mass - Routine Respiratory Exam Present: CTA bilaterally. Absent: accessory muscle use, decreased breath sounds , prolonged expiratory phase, rales, respiratory distress, rhonchi, stridor, wheezes, crackles, distant breath sounds - Routine Cardiovascular Exam Present: RRR, S1, S2, no murmur. Absent: gallop, S3, S4, click, irregular rhythm - Routine Abdominal Exam Present: soft, normoactive bowel sounds, non distended, non tender. Absent: rebound, guarding, firm, rigid, organomegaly, mass, hernia, wound - Routine Extremities Exam Present: no edema, non tender, pulses intact, normal capillary refill. Absent: cyanosis, clubbing - Routine Back/Spine/Pelvis Exam Back/Spine: Present: full ROM. Absent: scoliosis, kyphosis - Routine Skin Exam Present: intact, dry, warm. Absent: cyanosis, erythema, pallor, mottling, petechiae, urticaria, lesions, jaundice - Routine Neurological Exam Present: alert, oriented X3, CN II-XII intact, moving all extremities, normal speech - Routine Psychiatric Exam Present: normal affect, normal thought process, cooperative, good insight, good judgment. Absent: depressed, anxious Sepsis Assessment - Evaluation Severe Sepsis: none seen IRU A/P (1) Status post closed fracture of right femur Current visit: Yes Status: Acute This patient has severed and acute fracture of the right femur. She has undergone surgical repair and has developed multiple functional deficits. She normally lives alone at home with some caregiver assistance. She requires a multidisciplinary approach with PT and OT her to allow her to return to her independent functioning. (2) Acute blood loss anemia Current visit: Yes Status: Acute She has dropped from 11.7 down to 7.3 g percent. We will continue to monitor her hemoglobin as well as monitor vital signs carefully. (3) Hypertension Qualifiers: Hypertension type: essential hypertension Qualified Code(s): I10 - Essential (primary) hypertension Current visit: Yes Status: Chronic She is at risk for hypotension as well as excessive hypertension in view of the pain and recent fracture. (4) Elevated CK Current visit: Yes Status: Acute The patient was on the floor for over 7 hours. She has developed elevated CK and is at risk for renal failure in this regard. She will require maintenance of adequate hydration to obviate this potential and will be monitored carefully in this regard. DVT Prophylaxis: SCD's, Lovenox Resuscitation Status: Full Code - Course Hospital Course: Mckay Lucas MD: - Interventions to Obtain Goals PT Treatment Plan: Balance/Proprioception, Functional Activities, Gait Training , Patient/Family Education, Therapeutic Exercise OT Treatment Plan: ADL (Basic Care), Balance Training, IADL, Pt./Family Education, Ther. Exercise for ADL Goals Progress/Modifications: Because of this patient's medical complexity with her acute blood loss anemia, elevated CK and hypertension, the patient requires close 24 rehabilitation nursing monitoring. She requires a multidisciplinary approach with PT and OT to allow her to return to her home with independent functioning with assistance of home health.
[2017-10-07] MEDS: ENOXAPARIN 40 MG/0.4 ML INJECTION SQ SCH (20:58)
[2017-10-07] MEDS: MELATONIN 5 MG TABLET PO SCH (20:58)
[2017-10-07] MEDS: MIRTAZAPINE 15 MG TABLET PO SCH (20:59)
[2017-10-07] MEDS: SENNOSIDES 8.6 MG TABLET PO SCH (21:00)
[2017-10-07] MEDS: SERTRALINE 100 MG TABLET PO SCH (21:00)
[2017-10-07] MEDS: SALINE FLUSH 10ml SYRINGE IVF PRN (21:10)
[2017-10-08] MEDS: LEVOTHYROXINE 25 MCG TABLET PO SCH (08:31)
[2017-10-08] MEDS: ACETAMINOPHEN 325 MG TABLET PO SCH ×4 (08:31→21:00)
[2017-10-08] MEDS: OMEPRAZOLE 20 MG CAPSULE PO SCH (08:32)
[2017-10-08] MEDS: CALCIUM 600 + VIT D 400 TABLET PO SCH ×2 (08:32→20:23)
[2017-10-08] MEDS: MULTI-VITAMIN PLAIN TABLET PO SCH (08:32)
[2017-10-08] MEDS: PROPRANOLOL 20 MG TABLET PO SCH ×2 (08:32→20:27)
[2017-10-08] MEDS: LORATADINE 10 MG TABLET PO SCH (08:32)
[2017-10-08] MEDS: TRAMADOL 50 MG TABLET PO PRN (10:12)
[2017-10-08] MEDS: FERROUS GLUCONATE 324 MG TABLET PO SCH (10:12)
[2017-10-08] MEDS: NOZIN NASAL SWAB NAS SCH ×3 (10:13→20:22)
[2017-10-08] MEDS: POLYETHYL GLYCOL 3350 17gm PACKET PO SCH (10:13)
[2017-10-08] MEDS: DOCUSATE SODIUM 100 MG CAPSULE PO SCH ×2 (10:13→20:23)
--- NOTE | 2017-10-08 10:38 | IRU Progress Note ---
- Subjective/Serverity of Illness Date: 10/08/17 Ms. Mariscal was evaluated on inpatient rehabilitation. She does not remember my visit with her yesterday. She is pleasant and cooperative however. Per therapy, she is transferring with maximum assistance of 1 person. Ambulation is with total assistance although based on functional capability it is with moderate assistance. Car transfers were with total assistance. She can ambulate 20 feet with a front-wheeled walker. Reports that her pain management is adequate. Hemoglobin increased from 7.3-7.7. She denies any chest pain or shortness of breath. Exam Vital Signs: Temperature 98.9 F 10/08/17 08:32 Pulse Rate 71 10/08/17 08:32 Respiratory Rate 16 10/08/17 08:32 Blood Pressure 136/67 10/08/17 08:32 Pulse Oximetry 96 10/08/17 08:32 Height/Weight/BMI: Height 1.5 m Weight 62.6 kg Body Mass Index 27.8 - Constitutional Present: no acute distress, well nourished, well developed, cooperative Comments: Patient is pleasant and conversant but does not recall me from yesterday. - Routine HEENT Exam Eye: Present: EOMI ENT: Present: mucous membranes moist, dentition normal - Routine Respiratory Exam Present: CTA bilaterally. Absent: wheezes - Routine Cardiovascular Exam Present: RRR, S1, S2. Absent: murmur - Routine Abdominal Exam Present: soft, normoactive bowel sounds, non distended. Absent: tenderness - Routine Extremities Exam Present: edema (1+ edema right lower extremity as anticipated.), normal capillary refill - Routine Skin Exam Present: dry, warm - Routine Neurological Exam Present: alert, oriented X3, CN II-XII intact - Routine Psychiatric Exam Present: normal affect Comments: Patient cooperative. Does not appear to be depressed at present. Results IRU - Labs Labs: Have reviewed chart data including laboratory findings and therapy notes. IRU A/P (1) Status post closed fracture of right femur Current visit: Yes Status: Acute Patient making progress with regard to transfers and ambulation. Pain management appears to be adequate. (2) Acute blood loss anemia Current visit: Yes Status: Acute Hemoglobin improved from 7.3 up to 7.7. (3) Hypertension Qualifiers: Hypertension type: essential hypertension Qualified Code(s): I10 - Essential (primary) hypertension Current visit: Yes Status: Chronic (4) Elevated CK Current visit: Yes Status: Acute DVT Prophylaxis: SCD's, Lovenox Resuscitation Status: Full Code - Course Hospital Course: Mckay Lucas MD: 10/08/17 10:38 Patient progressing with therapy. Pain management appears to be adequate. Hemoglobin slightly improved. - Interventions to Obtain Goals PT Treatment Plan: Balance/Proprioception, Functional Activities, Gait Training , Patient/Family Education, Therapeutic Exercise OT Treatment Plan: ADL (Basic Care), Balance Training, IADL, Pt./Family Education, Ther. Exercise for ADL Goals Progress/Modifications: Patient is to be tolerating therapy adequately. Her hemoglobin is better. Reduced memory is likely a barrier to her progress. Pain management appears to be adequate at present.Please note that the patient's individual plan of care was developed and documented today, requiring review of therapy notes, medical conditions and anticipated functional recovery. This required additional medical decision making with regard to interaction of the patient's medical issues with the anticipated functional recovery. Please see separate document
--- NOTE | 2017-10-08 10:41 | IRU Plan of Care ---
U Overall Plan of Care - Date Date: 10/08/17 - Patient Impairments (1) Status post closed fracture of right femur Code(s): Z87.81 - Personal history of (healed) traumatic fracture Status: Acute Classification: Present on IRF Admission, IRF Tx That Should Address Diagnosis, Diagnosis Requiring Medical Follow Up (2) Acute blood loss anemia Code(s): D62 - Acute posthemorrhagic anemia Status: Acute Classification: Present on IRF Admission, IRF Tx That Should Address Diagnosis (3) Elevated CK Code(s): R74.8 - Abnormal levels of other serum enzymes Status: Acute Classification: Present on IRF Admission, IRF Tx That Should Address Diagnosis, Diagnosis Requiring Medical Follow Up (4) Hypertension Qualifiers: Hypertension type: essential hypertension Qualified Code(s): I10 - Essential (primary) hypertension Code(s): I10 - Essential (primary) hypertension Status: Chronic Classification: Present on IRF Admission, IRF Tx That Should Address Diagnosis, Diagnosis Requiring Medical Follow Up - Relevant Changes Relevant Changes: No Reviewed: I have reviewed the patient's information and concur with the finding and results of the pre-admission screen. Certification: I certify the patient for rehabilitation. - Medical Prognosis Medical Prognosis: Good Vital Signs: Last Vital Signs Temp 98.9 F 10/08/17 08:32 Pulse 71 10/08/17 08:32 Resp 16 10/08/17 08:32 BP 136/67 10/08/17 08:32 Pulse Ox 96 10/08/17 08:32 - Anticipated Interventions Anticipated Interventions: The patient requires inpatient IRF care for PT, OT, and/or ST for residuals remaining from hip fracture and repair resulting in muscular weakness and strength deficits. An individualized overall plan of care has been developed after careful review of the patient's preadmission screening, post admission physician evaluation and assessments of all therapy disciplines and/or other pertinent clinicians involved in treating the patient. This indicates medical necessity and rehabilitation necessity have been established through a thorough review of all available medical information. Strength Deficits: Right Lower Extremity - Current Functional Status Failed Alternative Therapy: Arrived from Acute Care Patient Requires: The patient requires oversight by rehabilitation physician to manage their rehabilitation treatment plan and multidisciplinary approach to care that can only be provided in an IRF and requires a multidisciplinary approach to care, provided by professional PTs, OTs, STs, rehabilitation nurses, and may require STs, dieticians, and RTS. This is not available in lesser levels of care. Physical Therapy Minutes: 90 Occupational Therapy Minutes: 90 Therapy: The patient is to receive therapy at least 5 days a week. - Anticipated LOS/Outcomes Anticipated Functional Outcome: It is anticipated the patient will be able to return to her home and perform ADLs and modified independent level or better. She will be able to ambulate with a front-wheeled walker safely and with good balance. Anticipated DC Destination: Home, Self Care, Home Health Service Home Safety Plan: The patient will be provided with the development of a Home Safety Plan for return to a home or home-like environment and and to ensure safety post discharge. - Plan to Avoid Complications Barriers to Attaining Goals: Weakness, Balance, Endurance, Comprehension Plan to Avoid Complications: The patient cannot receive this care in a lesser intensive setting such as [facility] or Outpatient Therapy due to the patient requiring the following : Patient requires close 24-hour rehabilitation nursing monitoring in view of her acute blood loss anemia as well as reduced memory. She requires reorientation at times. The patient will benefit from activity between therapy sessions provided by nursing. In addition, the patient requires a multidisciplinary coordinated approach with PT and OT and medical supervision.
[2017-10-08] MEDS: MELATONIN 5 MG TABLET PO SCH (20:22)
[2017-10-08] MEDS: ENOXAPARIN 40 MG/0.4 ML INJECTION SQ SCH (20:22)
[2017-10-08] MEDS: SERTRALINE 100 MG TABLET PO SCH (20:22)
[2017-10-08] MEDS: MIRTAZAPINE 15 MG TABLET PO SCH (20:23)
[2017-10-09] MEDS: SENNOSIDES 8.6 MG TABLET PO SCH ×2 (00:32→20:11)
[2017-10-09] MEDS: NOZIN NASAL SWAB NAS SCH ×4 (00:35→21:57)
[2017-10-09] MEDS: TRAMADOL 50 MG TABLET PO PRN (05:12)
[2017-10-09] MEDS: OMEPRAZOLE 20 MG CAPSULE PO SCH ×2 (05:13→06:41)
[2017-10-09] MEDS: LORATADINE 10 MG TABLET PO SCH ×2 (05:13→06:41)
[2017-10-09] MEDS: LEVOTHYROXINE 25 MCG TABLET PO SCH ×2 (05:13→06:42)
[2017-10-09] MEDS: MULTI-VITAMIN PLAIN TABLET PO SCH (08:41)
[2017-10-09] MEDS: FERROUS GLUCONATE 324 MG TABLET PO SCH (08:41)
[2017-10-09] MEDS: ACETAMINOPHEN 325 MG TABLET PO SCH ×4 (08:41→20:05)
[2017-10-09] MEDS: CALCIUM 600 + VIT D 400 TABLET PO SCH ×2 (08:42→20:06)
[2017-10-09] MEDS: DOCUSATE SODIUM 100 MG CAPSULE PO SCH ×2 (08:42→20:06)
[2017-10-09] MEDS: PROPRANOLOL 20 MG TABLET PO SCH ×2 (08:42→20:08)
[2017-10-09] MEDS: POLYETHYL GLYCOL 3350 17gm PACKET PO SCH (08:43)
[2017-10-09] MEDS ORDERED: FALL RISK - PHARMACY CONSULT MC ONE (10:28)
[2017-10-09] MEDS: MIRTAZAPINE 15 MG TABLET PO SCH (20:06)
[2017-10-09] MEDS: MELATONIN 5 MG TABLET PO SCH (20:06)
[2017-10-09] MEDS: SERTRALINE 100 MG TABLET PO SCH (20:07)
[2017-10-09] MEDS: ENOXAPARIN 40 MG/0.4 ML INJECTION SQ SCH (20:11)
[2017-10-10] MEDS: NOZIN NASAL SWAB NAS SCH ×3 (06:17→23:55)
[2017-10-10] MEDS: LEVOTHYROXINE 25 MCG TABLET PO SCH (06:18)
[2017-10-10] MEDS: TRAMADOL 50 MG TABLET PO PRN (06:18)
[2017-10-10] MEDS: OMEPRAZOLE 20 MG CAPSULE PO SCH (06:18)
[2017-10-10] MEDS: LORATADINE 10 MG TABLET PO SCH (06:19)
[2017-10-10] MEDS: SALINE FLUSH 10ml SYRINGE IVF PRN (08:55)
[2017-10-10] MEDS: FERROUS GLUCONATE 324 MG TABLET PO SCH (08:55)
[2017-10-10] MEDS: ACETAMINOPHEN 325 MG TABLET PO SCH ×4 (08:55→20:33)
[2017-10-10] MEDS: PROPRANOLOL 20 MG TABLET PO SCH ×2 (08:56→20:36)
[2017-10-10] MEDS: DOCUSATE SODIUM 100 MG CAPSULE PO SCH ×2 (08:56→20:34)
[2017-10-10] MEDS: MULTI-VITAMIN PLAIN TABLET PO SCH (08:56)
[2017-10-10] MEDS: CALCIUM 600 + VIT D 400 TABLET PO SCH ×2 (08:56→20:34)
[2017-10-10] MEDS: POLYETHYL GLYCOL 3350 17gm PACKET PO SCH (08:57)
[2017-10-10] MEDS: ENOXAPARIN 40 MG/0.4 ML INJECTION SQ SCH (20:34)
[2017-10-10] MEDS: MIRTAZAPINE 15 MG TABLET PO SCH (20:35)
[2017-10-10] MEDS: MELATONIN 5 MG TABLET PO SCH (20:35)
[2017-10-10] MEDS: SENNOSIDES 8.6 MG TABLET PO SCH (20:36)
[2017-10-10] MEDS: SERTRALINE 100 MG TABLET PO SCH (20:37)
[2017-10-11] MEDS: LEVOTHYROXINE 25 MCG TABLET PO SCH ×2 (05:23→08:28)
[2017-10-11] MEDS: NOZIN NASAL SWAB NAS SCH ×3 (05:23→22:09)
[2017-10-11] MEDS: OMEPRAZOLE 20 MG CAPSULE PO SCH ×2 (05:24→08:29)
[2017-10-11] MEDS: TRAMADOL 50 MG TABLET PO PRN ×2 (05:24→11:32)
[2017-10-11] MEDS: LORATADINE 10 MG TABLET PO SCH ×2 (05:24→08:29)
[2017-10-11] MEDS: POLYETHYL GLYCOL 3350 17gm PACKET PO SCH (08:45)
[2017-10-11] MEDS: PROPRANOLOL 20 MG TABLET PO SCH ×2 (08:46→20:22)
[2017-10-11] MEDS: ACETAMINOPHEN 325 MG TABLET PO SCH ×4 (08:46→20:20)
[2017-10-11] MEDS: CALCIUM 600 + VIT D 400 TABLET PO SCH ×2 (08:46→20:22)
[2017-10-11] MEDS: DOCUSATE SODIUM 100 MG CAPSULE PO SCH ×2 (08:46→20:21)
[2017-10-11] MEDS: MULTI-VITAMIN PLAIN TABLET PO SCH (08:47)
[2017-10-11] MEDS: FERROUS GLUCONATE 324 MG TABLET PO SCH (08:47)
--- NOTE | 2017-10-11 12:11 | IRU Progress Note ---
- Subjective/Serverity of Illness Date: 10/11/17 Ms. Mariscal is tolerating therapy well. She tends to joke quite a bit and it takes her a while for her to copy with the answer. I asked her where she was located and she states that she is in the hospital but it took her a while to think through that. I'm not certain she remembers who I am. She denies any chest pain or shortness of breath. She does have some significant right leg edema. Inspection of the area around the wound was performed and is unremarkable. No redness present. She hasn't IV saline lock in place which is no longer use and we will discontinue that. From a therapy standpoint she is transferring with moderate assistance for physical therapy and minimum assistance for occupational therapy. She is ambulate in 300 feet or greater with contact-guard assistance with a front- wheeled walker. She is dressing with standby assistance for upper body and minimum assistance for lower body with occupational therapy. Exam Vital Signs: Temperature 99.9 F 10/11/17 08:00 Pulse Rate 134 H 10/11/17 08:00 Respiratory Rate 18 10/11/17 08:00 Blood Pressure 112/62 10/11/17 08:00 Pulse Oximetry 96 10/11/17 08:00 Height/Weight/BMI: Height 1.5 m Weight 62.6 kg Body Mass Index 27.8 - Constitutional Present: no acute distress, well nourished, well developed, cooperative - Routine HEENT Exam Eye: Present: EOMI ENT: Present: mucous membranes moist, dentition normal - Routine Respiratory Exam Present: CTA bilaterally. Absent: wheezes - Routine Cardiovascular Exam Present: RRR. Absent: murmur - Routine Abdominal Exam Present: soft, normoactive bowel sounds, non distended. Absent: tenderness - Routine Extremities Exam Present: edema (1+ edema right lower extremity.), normal capillary refill - Routine Skin Exam Present: dry, warm - Routine Neurological Exam Present: alert, oriented X3, CN II-XII intact - Routine Psychiatric Exam Present: normal affect IRU A/P (1) Status post closed fracture of right femur Current visit: Yes Status: Acute Has significant pain in the right hip when she is up and about. However pain medication is effective for her. She is cooperative with therapy and making progress. (2) Acute blood loss anemia Current visit: Yes Status: Acute Last hemoglobin indicated stability in her anemia. No evidence of ongoing bleeding. (3) Elevated CK Current visit: Yes Status: Acute (4) Hypertension Qualifiers: Hypertension type: essential hypertension Qualified Code(s): I10 - Essential (primary) hypertension Current visit: Yes Status: Chronic Patient's blood pressures are reviewed and look good. DVT Prophylaxis: SCD's, Lovenox Resuscitation Status: Full Code - Course Hospital Course: Mckay Lucas MD: 10/08/17 10:38 Patient progressing with therapy. Pain management appears to be adequate. Hemoglobin slightly improved. 10/11/17 12:11 Patient tolerating therapy well. Uncertain about her cognition. Medically stable. - Interventions to Obtain Goals PT Treatment Plan: Balance/Proprioception, Functional Activities, Gait Training , Patient/Family Education, Therapeutic Exercise OT Treatment Plan: ADL (Basic Care), Balance Training, IADL, Pt./Family Education, Ther. Exercise for ADL
[2017-10-11] MEDS ORDERED: FALL RISK - PHARMACY CONSULT MC ONE (15:04)
--- NOTE | 2017-10-11 15:50 | Progress Note ---
Progress Note: Per request, I called the patient's son Corby Mariscal at [phone]. I left a message for him to call me back if he would like to discuss her care.
--- NOTE | 2017-10-11 16:13 | Progress Note ---
- Date 10/11/17 Subjective: Leonor was seen walking to room 177. She is being moved there b/c of increased confusion. Around noon today she was found pushing her tray table outside of her room stating she needed to use the bathroom. She's been up twice today without asking for help. The patient has baseline confusion but she states that it is worse than normal. She always has some dizziness. She asked if she was in her house. She laughed inappropriately. She denied any SOA, cough, congestion, chest pain, abdominal pain, n/v/d/c, or urinary symptoms. Objective Vital signs: Temperature 99.9 F 10/11/17 08:00 Pulse Rate 134 H 10/11/17 08:00 Respiratory Rate 18 10/11/17 08:00 Blood Pressure 112/62 10/11/17 08:00 Pulse Oximetry 96 10/11/17 08:00 Height/Weight/BMI: Height 1.5 m Weight 62.6 kg Body Mass Index 27.8 - Constitutional Present: no acute distress, well nourished, well developed - Routine HEENT Exam Head: Present: normocephalic Eye: Absent: conjunctival icterus, scleral injection - Routine Respiratory Exam Present: CTA bilaterally - Routine Cardiovascular Exam Present: RRR, S1, S2 - Routine Abdominal Exam Present: soft, normoactive bowel sounds, non distended, non tender - Routine Extremities Exam Present: edema (1+ RLE) - Routine Musculoskeletal Exam Musculoskeletal: Present: moving extremities well - Routine Skin Exam Present: dry, warm - Routine Neurological Exam Present: alert, CN II-XII intact, moving all extremities, vision grossly intact , hearing grossly intact. Absent: oriented X3, facial asymmetry - Routine Psychiatric Exam Present: cooperative Results - Labs CBC & Chem 7: 10/08/17 04:54 10/07/17 04:39 Assessment and Plan (1) Status post closed fracture of right femur Current visit: Yes Status: Acute Assessment and Plan: Impression S/P ORIF right femur fracture. Acute encephalopathy. Postoperative anemia. 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 Will check labs in am; obtain urine sample. If cognition does not improve we may consider psych consult and/or RAUL eval prior to discharge, if she is stable for discharge home. Dr. Lucas' notes reviewed. Discussed with nursing. DVT Prophylaxis: SCD's, Lovenox Resuscitation Status: Full Code - Physician Narrative Physician: Latonya Esqueda MD Narrative: Date: 10/11/17 Time: 1999 I have independently evaluated and examined this patient. I reviewed the chart, the patient's history, and the DIRECTOR DECISION SUPPORT/PA's documented findings as above. We discussed and formulated the assessment and plan as above with additions as below: Mrs. Mariscal was seen earlier this evening. She reported that her hip is doing okay and that she is getting stronger. Pain control is adequate and she's been walking with a walker to the dining room into therapy. NAD, pleasant Respirations nonlabored, breath sounds clear +2 edema right lower extremity with trace edema left lower extremity Urinalysis pending Continue strengthening; reassess electrolytes/hemoglobin as above. Hospital Course Summary Disclaimer: The visit summary below is not to be considered part of the above Progress Note. Hospital Course: Impression S/P ORIF right hip fracture. Postoperative anemia. 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 Lucas for ongoing rehabilitation Into need to monitor blood counts carefully. His patient did require 1 unit packed red blood cell transfusion postoperatively. Today, hemoglobin, down 7.3. Will recheck tomorrow morning and transfuse if </= 7 Monitor blood pressure, continue on Inderal Senna, Colace, milk of mag, MiraLAX for postoperative bowel motivation. Tramadol and Tylenol for postoperative pain control Lovenox Subcutaneous daily for DVT prophylaxis. Full anticoagulation is contraindicated given beta-type amyloid angiitis Hospitalist services will continue to follow patient medically manage existing comorbidities during her stay on the IRU unit. Time of discharge medical care will return to PCP, Dr. Pereira 10/11 Increasing confusion though has intermittent confusion at baseline. Will check labs in am; obtain urine sample. If cognition does not improve we may consider psych consult and/or RAUL eval prior to discharge, if she is stable for discharge home.
[2017-10-11] MEDS: MIRTAZAPINE 15 MG TABLET PO SCH (20:21)
[2017-10-11] MEDS: MELATONIN 5 MG TABLET PO SCH (20:22)
[2017-10-11] MEDS: ENOXAPARIN 40 MG/0.4 ML INJECTION SQ SCH (20:22)
[2017-10-11] MEDS: SERTRALINE 100 MG TABLET PO SCH (20:23)
[2017-10-11] MEDS: SENNOSIDES 8.6 MG TABLET PO SCH (20:24)
[2017-10-12] MEDS: NOZIN NASAL SWAB NAS SCH ×2 (05:09→13:29)
[2017-10-12] MEDS: LORATADINE 10 MG TABLET PO SCH (05:42)
[2017-10-12] MEDS: OMEPRAZOLE 20 MG CAPSULE PO SCH (05:42)
[2017-10-12] MEDS: LEVOTHYROXINE 25 MCG TABLET PO SCH (05:42)
[2017-10-12] MEDS: DOCUSATE SODIUM 100 MG CAPSULE PO SCH ×2 (08:26→20:44)
[2017-10-12] MEDS: POLYETHYL GLYCOL 3350 17gm PACKET PO SCH (08:26)
[2017-10-12] MEDS: ACETAMINOPHEN 325 MG TABLET PO SCH ×4 (08:27→20:44)
[2017-10-12] MEDS: CALCIUM 600 + VIT D 400 TABLET PO SCH ×2 (08:27→20:44)
[2017-10-12] MEDS: FERROUS GLUCONATE 324 MG TABLET PO SCH (08:27)
[2017-10-12] MEDS: MULTI-VITAMIN PLAIN TABLET PO SCH (08:27)
[2017-10-12] MEDS: PROPRANOLOL 20 MG TABLET PO SCH ×2 (08:28→20:44)
[2017-10-12] MEDS: TRAMADOL 50 MG TABLET PO PRN (10:26)
--- NOTE | 2017-10-12 11:45 | IRU Progress Note ---
- Subjective/Serverity of Illness Date: 10/12/17 Ms. Mariscal was evaluated in her room with therapy present. Therapy indicates that she has significant cognitive deficits requiring verbal cues. She is currently standing at the sink and doing grooming. She has experienced some loss of balance which is self corrected. Does have some right-sided edema which seems to be worse when she is up on her feet as anticipated. The patient denies any chest pain or shortness of breath. She seems cooperative. However does have cognitive deficits requiring verbal cues. Exam Vital Signs: Temperature 98.0 F 10/12/17 07:50 Pulse Rate 100 10/12/17 07:50 Respiratory Rate 16 10/12/17 10:26 Blood Pressure 150/68 H 10/12/17 07:50 Pulse Oximetry 98 10/12/17 07:50 Height/Weight/BMI: Height 1.5 m Weight 62.6 kg Body Mass Index 27.8 - Constitutional Present: no acute distress, well nourished, well developed - Routine HEENT Exam Eye: Present: EOMI ENT: Present: mucous membranes moist, dentition normal - Routine Respiratory Exam Present: CTA bilaterally. Absent: wheezes - Routine Cardiovascular Exam Present: RRR, S1, S2. Absent: murmur - Routine Abdominal Exam Present: soft, normoactive bowel sounds, non distended. Absent: tenderness - Routine Extremities Exam Present: edema (right lower extremity 1+), normal capillary refill - Routine Skin Exam Present: dry, warm - Routine Neurological Exam Present: alert, oriented X3, CN II-XII intact - Routine Psychiatric Exam Present: normal affect IRU A/P (1) Status post closed fracture of right femur Current visit: Yes Status: Acute Patient states that the pain is slowly improving. Cooperative with therapy. Cognitive deficits limit progress. (2) Acute blood loss anemia Current visit: Yes Status: Acute Repeat hemoglobin improved at 8.4 g percent. (3) Elevated CK Current visit: Yes Status: Acute (4) Hypertension Qualifiers: Hypertension type: essential hypertension Qualified Code(s): I10 - Essential (primary) hypertension Current visit: Yes Status: Chronic Blood pressures are overall reasonably well controlled with occasional values in the 150 range. DVT Prophylaxis: SCD's, Lovenox Resuscitation Status: Full Code - Course Hospital Course: Mckay Lucas MD: 10/08/17 10:38 Patient progressing with therapy. Pain management appears to be adequate. Hemoglobin slightly improved. 10/11/17 12:11 Patient tolerating therapy well. Uncertain about her cognition. Medically stable. 10/12/17 11:44 Cooperative with therapy. Short-term memory loss noted. Chest remains clear. Pain management adequate - Interventions to Obtain Goals PT Treatment Plan: Balance/Proprioception, Functional Activities, Gait Training , Patient/Family Education, Therapeutic Exercise OT Treatment Plan: ADL (Basic Care), Balance Training, IADL, Pt./Family Education, Ther. Exercise for ADL Goals Progress/Modifications: Because the patient's reduced cognition it is likely patient will require some type of supervised environment. She does have home health coming in at the present time. From a medical standpoint her blood pressures are reasonably well controlled. Does have edema in the right largest remedy as anticipated. I did call the patient's son yesterday and left a message for him to call me back. We will have a team meeting today and make further comments with regard to progress.
--- NOTE | 2017-10-12 14:23 | IRU Team Meeting ---
IRU Team Meeting - Nursing Bladder Assistive Devices Utilized:: Absorbent Pad Bladder Management Level of Assist: Modified Independent Bladder Frequency of Accidents: No accidents Bowel Assistive Devices Utilized:: Medication, Absorbent Pad Bowel Management Level of Assist: Modified Independent Bowel Frequency of Accidents: 1 accident this shift Vital Signs: Vital Signs - 24 hr 10/11/17 16:00 10/11/17 20:12 10/12/17 07:50 Temperature 97.6 F 98.1 F 98.0 F Pulse Rate 68 75 100 Respiratory Rate 18 16 14 Blood Pressure 123/65 128/55 150/68 H Pulse Oximetry 93 98 98 10/12/17 10:26 Temperature Pulse Rate Respiratory Rate 16 Blood Pressure Pulse Oximetry Current Medications: Acetaminophen (Tylenol) 650 mg PO QID [facility] Last Admin: 10/12/17 12:44 Dose: 650 mg Bisacodyl (Dulcolax) 10 mg RECTALLY DAILY PRN PRN Reason: Constipation Calcium/Vitamin D (Caltrate + D) 1 tab PO BID [facility] Last Admin: 10/12/17 08:27 Dose: 1 tab Cholecalciferol (Vit. D-3) 1,000 unit PO DAILY [facility] Last Admin: 10/12/17 08:27 Dose: 1,000 unit Docusate Sodium (Colace) 100 mg PO BID [facility] Last Admin: 10/12/17 08:26 Dose: 100 mg Enoxaparin Sodium (Lovenox) 40 mg SQ Q24H [facility] Last Admin: 10/11/17 20:22 Dose: 40 mg Ferrous Gluconate (Fergon) 324 mg PO WB [facility] Last Admin: 10/12/17 08:27 Dose: 324 mg Isopropyl Alcohol (Nozin Nasal Swab) 1 each [place] 0600,1400,2200 [facility] Last Admin: 10/12/17 13:29 Dose: 1 each Levothyroxine Sodium (Synthroid) 25 mcg PO ACB [facility] Last Admin: 10/12/17 05:42 Dose: 25 mcg Loratadine (Claritin) 10 mg PO ACB [facility] Last Admin: 10/12/17 05:42 Dose: 10 mg Magnesium Hydroxide (Mom) 30 ml PO DAILY PRN PRN Reason: Constipation Last Admin: 10/12/17 12:44 Dose: 30 ml Melatonin (Melatonin) 5 mg PO HS [facility] Last Admin: 10/11/17 20:22 Dose: 5 mg Mirtazapine (Remeron) 7.5 mg PO HS [facility] Last Admin: 10/11/17 20:21 Dose: 7.5 mg Multivitamins (Theragran) 1 tab PO DAILY [facility] Last Admin: 10/12/17 08:27 Dose: 1 tab Omeprazole (Prilosec) 20 mg PO ACB [facility] Last Admin: 10/12/17 05:42 Dose: 20 mg Polyethylene Glycol (Miralax) 17 gm PO DAILY [facility] Last Admin: 10/12/17 08:26 Dose: 17 gm Propranolol HCl (Inderal) 40 mg PO BID [facility] Last Admin: 10/12/17 08:28 Dose: 40 mg Senna (Senna Lax) 17.2 mg PO DAILY PRN PRN Reason: Constipation Senna (Senna Lax) 17.2 mg PO HS [facility] Last Admin: 10/11/17 20:24 Dose: 17.2 mg Sertraline HCl (Zoloft) 100 mg PO HS [facility] Last Admin: 10/11/17 20:23 Dose: 100 mg Tramadol HCl (Ultram) 50 - 100 mg PO Q6H PRN PRN Reason: Pain Last Admin: 10/12/17 10:26 Dose: 50 mg Current Medical Issues: Status post open reduction internal fixation right hip fracture, acute blood loss anemia, hypertension, memory loss/dementia Comments: I certify that I personally led the interdisciplinary team meeting and agree with comments, barriers and goals indicated. Team meeting was held in the patient's room with the patient and the following family members present: patient's son Rich by phone. Ms. Mariscal is quite cooperative. Appetite is reasonable. Pain management appears to be adequate. Reduced cognition noted and she has gotten up on her own on 2-3 occasions. For that reason she was moved closer to the nursing station. - Physical Therapy Bed, Chair, Wheelchair Transfer Assist: Stand By Assist/Supervision, 1 Person Assist Ambulation Ability: Contact Guard Assistance, 1 Person Assist Ambulation Distance: 218 Wheelchair Propulsion Ability: Stand By Assist/Supervision, Household Exception Wheelchair Propulsion Distance: 75 Stair Climbing Ability: Patient Unsafe/Unable Car Transfer Ability: Stand By Assist/Supervision, 1 Person Assist Comments: Patient is able to ambulate over 200 feet with contact guard assistance of 1 person. She is able to increase distance with ambulation and is progressing toward her goals. - Occupational Therapy Eating Ability: Independent Grooming Ability: Modified Independent Bathing Ability: Minimal Assistance Upper Body Dressing Ability: Stand By Assist/Supervision Lower Body Dressing Ability: Minimal Assistance Tub Transfer Assist: Patient Unsafe/Unable Toileting Assist: Stand By Assist/Supervision Toilet Transfer Assist: Contact Guard Assistance Comments: Patient requires extended time to complete her tasks but is quite cooperative and willing to try. Has difficulty donning right sock and shoe because of edema in the right lower extremity. Does display confusion. - Goals Physical Therapy Goals: 10/12/17. 1.) Demonstrate good safety awareness 100% of the time. 2.) Demonstrate improved active range of motion with right lower extremity with functional mobility. 3.) Improved gait mechanics demonstrating increased right foot clearance. Occupational Therapy Goals: OT Goals 10/12/17: 1) Complete toilet transfer supervision using front wheeled walker. 2) Complete tub/shower transfer supervision with or without shower chair/bench. 3) Complete lower body dressing supervision with or without adaptive equipment. - Barriers to Discharge Barriers to Attaining Goals: Comprehension (comprehension/reduced cognition his primary barrier to progress. Multiple verbal cues are provided with reminders.) - Care Plan Anticipated Length of Stay (days): 2 Anticipated DC Destination: Alf/Facility I have led this team conference and agree with the plan. Interventions/Goals: Patient's reduced memory makes it unsafe for her to return to her home environment at this time. We will continue working with her for a couple of days to improve ADLs as well as ambulation and transfers. Following that she will require skilled care for a time to strengthen and see if she will be able to improve with regard to cognition.
[2017-10-12] MEDS: ENOXAPARIN 40 MG/0.4 ML INJECTION SQ SCH (20:43)
[2017-10-12] MEDS: MELATONIN 5 MG TABLET PO SCH (20:44)
[2017-10-12] MEDS: SENNOSIDES 8.6 MG TABLET PO SCH (20:44)
[2017-10-12] MEDS: MIRTAZAPINE 15 MG TABLET PO SCH (20:45)
[2017-10-12] MEDS: SERTRALINE 100 MG TABLET PO SCH (20:45)
[2017-10-13] MEDS: NOZIN NASAL SWAB NAS SCH ×4 (04:17→22:59)
[2017-10-13] MEDS: LORATADINE 10 MG TABLET PO SCH (05:48)
[2017-10-13] MEDS: LEVOTHYROXINE 25 MCG TABLET PO SCH (05:48)
[2017-10-13] MEDS: OMEPRAZOLE 20 MG CAPSULE PO SCH (05:48)
[2017-10-13] MEDS: TRAMADOL 50 MG TABLET PO PRN ×2 (05:48→12:01)
[2017-10-13] MEDS: ACETAMINOPHEN 325 MG TABLET PO SCH ×4 (08:50→20:06)
[2017-10-13] MEDS: CALCIUM 600 + VIT D 400 TABLET PO SCH ×2 (08:51→20:06)
[2017-10-13] MEDS: MULTI-VITAMIN PLAIN TABLET PO SCH (08:51)
[2017-10-13] MEDS: FERROUS GLUCONATE 324 MG TABLET PO SCH (08:51)
[2017-10-13] MEDS: PROPRANOLOL 20 MG TABLET PO SCH ×2 (08:51→20:09)
[2017-10-13] MEDS: POLYETHYL GLYCOL 3350 17gm PACKET PO SCH (08:52)
[2017-10-13] MEDS: DOCUSATE SODIUM 100 MG CAPSULE PO SCH ×2 (08:52→20:07)
[2017-10-13] MEDS: MELATONIN 5 MG TABLET PO SCH (20:07)
[2017-10-13] MEDS: ENOXAPARIN 40 MG/0.4 ML INJECTION SQ SCH (20:07)
[2017-10-13] MEDS: SERTRALINE 100 MG TABLET PO SCH (20:08)
[2017-10-13] MEDS: MIRTAZAPINE 15 MG TABLET PO SCH (20:08)
[2017-10-13] MEDS: SENNOSIDES 8.6 MG TABLET PO SCH (20:09)
[2017-10-14] MEDS: LORATADINE 10 MG TABLET PO SCH (07:33)
[2017-10-14] MEDS: OMEPRAZOLE 20 MG CAPSULE PO SCH (07:33)
[2017-10-14] MEDS: LEVOTHYROXINE 25 MCG TABLET PO SCH (07:33)
[2017-10-14] MEDS: NOZIN NASAL SWAB NAS SCH ×3 (07:33→22:27)
[2017-10-14] MEDS: CALCIUM 600 + VIT D 400 TABLET PO SCH ×2 (08:57→20:42)
[2017-10-14] MEDS: POLYETHYL GLYCOL 3350 17gm PACKET PO SCH (08:57)
[2017-10-14] MEDS: PROPRANOLOL 20 MG TABLET PO SCH ×2 (08:57→20:41)
[2017-10-14] MEDS: FERROUS GLUCONATE 324 MG TABLET PO SCH (08:58)
[2017-10-14] MEDS: MULTI-VITAMIN PLAIN TABLET PO SCH (08:58)
[2017-10-14] MEDS: DOCUSATE SODIUM 100 MG CAPSULE PO SCH ×2 (08:58→20:46)
[2017-10-14] MEDS: ACETAMINOPHEN 325 MG TABLET PO SCH ×4 (08:58→20:40)
--- NOTE | 2017-10-14 11:51 | IRU Progress Note ---
- Subjective/Serverity of Illness Date: 10/14/17 Ms. Mariscal was reassessed in her room on inpatient rehabilitation. Her transfers are performed variably from standby assistance to total assistance. Much of this may be related to her cognition which is a barrier to her progress. She denies any chest pain. She denies shortness of breath. She is pleasant and cooperative requires multiple verbal cues. She reports her pain is adequately controlled. She continues to have a edema in the right lower extremity as anticipated. She is able to ambulate with a front-wheeled walker with contact-guard assist 151 feet. Exam Vital Signs: Temperature 98.7 F 10/14/17 07:46 Pulse Rate 77 10/14/17 07:46 Respiratory Rate 16 10/14/17 07:46 Blood Pressure 135/65 10/14/17 07:46 Pulse Oximetry 92 10/14/17 07:46 Height/Weight/BMI: Height 1.5 m Weight 62.6 kg Body Mass Index 27.8 - Constitutional Present: no acute distress, well nourished, well developed, cooperative - Routine HEENT Exam Eye: Present: EOMI ENT: Present: mucous membranes moist, dentition normal - Routine Respiratory Exam Present: CTA bilaterally. Absent: wheezes - Routine Cardiovascular Exam Present: RRR, S1, S2. Absent: murmur - Routine Abdominal Exam Present: soft, normoactive bowel sounds, non distended. Absent: tenderness - Routine Extremities Exam Present: edema (trace right lower extremity), normal capillary refill - Routine Skin Exam Present: dry, warm - Routine Neurological Exam Present: alert, CN II-XII intact. Absent: oriented X3 - Routine Psychiatric Exam Present: normal affect, anxious Comments: Impaired cognition Results IRU - Labs Labs: Have reviewed chart data. IRU A/P (1) Status post closed fracture of right femur Current visit: Yes Status: Acute Patient's pain appears to be adequately controlled. Progress with therapy is variable related to reduced cognition. (2) Acute blood loss anemia Current visit: Yes Status: Acute Hemoglobin 8.4 which is an improvement. (3) Elevated CK Current visit: Yes Status: Acute (4) Hypertension Qualifiers: Hypertension type: essential hypertension Qualified Code(s): I10 - Essential (primary) hypertension Current visit: Yes Status: Chronic DVT Prophylaxis: SCD's, Lovenox Resuscitation Status: Full Code - Course Hospital Course: Mckay Lucas MD: 10/08/17 10:38 Patient progressing with therapy. Pain management appears to be adequate. Hemoglobin slightly improved. 10/11/17 12:11 Patient tolerating therapy well. Uncertain about her cognition. Medically stable. 10/12/17 11:44 Cooperative with therapy. Short-term memory loss noted. Chest remains clear. Pain management adequate 10/14/17 11:51 Pain management appears to be adequate. Cooperative with therapy but requires multiple verbal cues. Anticipate safe transition to skilled care tomorrow. - Interventions to Obtain Goals PT Treatment Plan: Balance/Proprioception, Functional Activities, Gait Training , Patient/Family Education, Therapeutic Exercise OT Treatment Plan: ADL (Basic Care), Balance Training, IADL, Pt./Family Education, Ther. Exercise for ADL
[2017-10-14 20:01] VITALS: TEMP 98.2
[2017-10-14] MEDS: MIRTAZAPINE 15 MG TABLET PO SCH (20:42)
[2017-10-14] MEDS: MELATONIN 5 MG TABLET PO SCH (20:42)
[2017-10-14] MEDS: SERTRALINE 100 MG TABLET PO SCH (20:43)
[2017-10-14] MEDS: ENOXAPARIN 40 MG/0.4 ML INJECTION SQ SCH (20:44)
[2017-10-14] MEDS: SENNOSIDES 8.6 MG TABLET PO SCH (20:46)
[2017-10-15] MEDS: LEVOTHYROXINE 25 MCG TABLET PO SCH (06:16)
[2017-10-15] MEDS: OMEPRAZOLE 20 MG CAPSULE PO SCH (06:16)
[2017-10-15] MEDS: NOZIN NASAL SWAB NAS SCH (06:16)
[2017-10-15] MEDS: LORATADINE 10 MG TABLET PO SCH (06:16)
[2017-10-15 07:55] VITALS: BP 128/68; PULSE 75; RESP 20; O2SAT 97
[2017-10-15] MEDS: MULTI-VITAMIN PLAIN TABLET PO SCH (08:53)
[2017-10-15] MEDS: ACETAMINOPHEN 325 MG TABLET PO SCH ×2 (08:53→12:19)
[2017-10-15] MEDS: FERROUS GLUCONATE 324 MG TABLET PO SCH (08:54)
[2017-10-15] MEDS: PROPRANOLOL 20 MG TABLET PO SCH (08:55)
[2017-10-15] MEDS: CALCIUM 600 + VIT D 400 TABLET PO SCH (08:55)
[2017-10-15] MEDS: DOCUSATE SODIUM 100 MG CAPSULE PO SCH (08:55)
[2017-10-15] MEDS: POLYETHYL GLYCOL 3350 17gm PACKET PO SCH (08:56)
--- NOTE | 2017-10-15 10:06 | IRU Progress Note ---
- Subjective/Serverity of Illness Date: 10/15/17 Ms. Mariscal was reassessed on inpatient rehabilitation. She has tolerated therapy well. She continues to have reduced short-term memory making it unsafe for her to return to her independent living situation at this time. She reports that the pain in the hip is improving. She denies any chest pain or shortness of breath. Her bowels are moving. Exam Vital Signs: Temperature 98.2 F 10/15/17 07:54 Pulse Rate 75 10/15/17 07:54 Respiratory Rate 20 10/15/17 07:54 Blood Pressure 128/68 10/15/17 07:54 Pulse Oximetry 97 10/15/17 07:54 Height/Weight/BMI: Height 1.5 m Weight 60.7 kg Body Mass Index 27.8 - Constitutional Present: no acute distress, well nourished, well developed, cooperative - Routine HEENT Exam Eye: Present: EOMI ENT: Present: mucous membranes moist, oropharynx clear - Routine Respiratory Exam Present: CTA bilaterally. Absent: wheezes - Routine Cardiovascular Exam Present: RRR, S1, S2. Absent: murmur - Routine Abdominal Exam Present: soft, normoactive bowel sounds, non distended. Absent: tenderness - Routine Extremities Exam Present: edema (1+ right lower extremity), normal capillary refill - Routine Skin Exam Present: dry, warm - Routine Neurological Exam Present: alert, CN II-XII intact. Absent: oriented X3 - Routine Psychiatric Exam Present: normal affect, anxious. Absent: good insight, good judgment IRU A/P (1) Status post closed fracture of right femur Current visit: Yes Status: Acute Functionally the patient has done well with therapy. She is safe to transfer to skilled care at this time. (2) Acute blood loss anemia Current visit: Yes Status: Acute Follow-up hemoglobin improved at 8.4. (3) Elevated CK Current visit: Yes Status: Acute (4) Hypertension Qualifiers: Hypertension type: essential hypertension Qualified Code(s): I10 - Essential (primary) hypertension Current visit: Yes Status: Chronic Blood pressures are reviewed and are between 120 and 130 in general. DVT Prophylaxis: SCD's, Lovenox Resuscitation Status: Full Code - Course Hospital Course: Mckay Lucas MD: 10/08/17 10:38 Patient progressing with therapy. Pain management appears to be adequate. Hemoglobin slightly improved. 10/11/17 12:11 Patient tolerating therapy well. Uncertain about her cognition. Medically stable. 10/12/17 11:44 Cooperative with therapy. Short-term memory loss noted. Chest remains clear. Pain management adequate 10/14/17 11:51 Pain management appears to be adequate. Cooperative with therapy but requires multiple verbal cues. Anticipate safe transition to skilled care tomorrow. 10/15/17 10:05 Patient is stable for transfer. - Interventions to Obtain Goals PT Treatment Plan: Balance/Proprioception, Functional Activities, Gait Training , Patient/Family Education, Therapeutic Exercise OT Treatment Plan: ADL (Basic Care), Balance Training, IADL, Pt./Family Education, Ther. Exercise for ADL
--- NOTE | 2017-10-15 10:11 | Extended Care Facility Orders ---
Admission Orders Admit to:: Assisted Allergies/Adverse Reactions: Allergies Sulfa (Sulfonamide Antibiotics) Adverse Reaction (Unknown, Verified 10/04/17 12: 02) NAUSEA blood thinners Adverse Reaction (Uncoded 04/26/17 15:59) pt doesnt remember narcotics Adverse Reaction (Uncoded 04/26/17 16:01) Cognitive Impairment Admitting Diagnosis: Right Femoral Fracture Admitting Physician: Mckay Lucas MD Attending Physician: Mckay Lucas MD Code Status: Full Code Anticiapted Length of Stay: 30 days or less Rehab Potential: good Rehab Prognosis: good Diet: 10/06/17 Breakfast Regular Diet [DIET] Diet Modifications: Wound/Incision Care: Keep wound clean and dry. If questions, please contact Dr. Aly Logan. May use Facility Protocol or Standing Orders: Yes May have flu vaccine: Yes Evaluations/Treatment: PT, OT Assisted Certification: I certify that SNF services are required to be given on an inpatient basis because of the patient's need for retirement care on a continuing basis for the condition(s) for which he/she received inpatient hospital services prior to his/her transfer to the SNF. SNF inpatient care is necessary for the following reasons: Indication for Assisted: Wound Care/Assessment - Additional Information In Event of Arrest: Start CPR,call 911,send patient to the ER Resident is Aware of Diagnosis: Yes Referrals: Danny Logan MD [Physician] - 2 Weeks (Dr. Jozef Logan on 10/27/17 at 2:15 pm for Post-Op follow-up. ) Drew Pereira MD [Primary Care Provider] - 2 Weeks (f/u 1-2 weeks after discharge from SNU. )
--- NOTE | 2017-10-15 11:49 | Discharge Summary ---
Discharge Information Date of admission: 10/06/17 13:12 Anticipated date of discharge: 10/15/17 Attending Physician: Mckay Lucas MD Primary care physician: Drew Pereira MD Consults: 10/06/17 14:34 Physician Consult [CONS] Routine Consulting Provider: Alivia Rowland Reason For Exam: Medical management Ordering Provider has Notified Bolt Man: No 10/13/17 12:18 Physician Consult [CONS] Routine Consulting Provider: Inge Jorgensen Reason For Exam: snf Ordering Provider has Notified Bolt Man: Yes 10/13/17 15:23 Physician Consult [CONS] Routine Consulting Provider: Delmer Loyola Reason For Exam: placement options Ordering Provider has Notified Bolt Man: Yes - Discharge Diagnosis (1) Status post closed fracture of right femur Status: Acute (2) Acute blood loss anemia Status: Acute (3) Elevated CK Status: Resolved (4) Hypertension Status: Chronic (5) Dementia Status: Chronic 1. Status post open reduction internal fixation right femoral fracture 2. Acute blood loss anemia 3. Benign essential hypertension 4. Elevated CK-resolved 5. Dementia - Laboratory Labs: 10/12/17 04:54 10/12/17 04:54 History of Present Illness HPI: Ms. Mariscal lives independently with home health assistance. She got up to go the bathroom and 2:00 in the morning on 10/04/2017. She apparently fell and was found the next morning around 9:45 AM by a caregiver. She was brought to the emergency department. CT head and CT cervical spine were unremarkable. A fracture of the intratrochanteric region with displaced avulsion fracture of the lesser trochanter was identified on plain radiograph of the right hip. Also she had a displaced spiral fracture of the proximal shaft of the right femur. She was taken to surgery on 10/04/[address] Aly Logan for ORIF with cephalo- medullary katerin and cerclage wires to the right subtrochanteric hip fracture. The patient did have acute blood loss anemia with initial hemoglobin 11.7 falling to a low 7.3 g percent. CK was elevated at 928. Troponin was negative. The patient also had benign essential hypertension. She sustained multiple functional deficits as a result of this fall and fracture and was felt to be a good candidate for acute inpatient rehabilitation. Hospital Course This is a general summary of the patient's hospital course. For more details refer to the complete medical record. The patient was admitted to acute inpatient rehabilitation on 10/06/2017. She was followed by the hospitalist service as well as by Dr. Lucas. Her acute blood loss anemia was monitored with initial hemoglobin 7.3 rising to 7.7. On it was 8.4. Despite the elevated CK, her chemistries remained normal including creatinine of 0.8. Her blood pressures typically run in the 120 - 130 systolic range. She remained afebrile. She was very cooperative with therapy. Unfortunately her cognition limited her progress. She was noted to be intermittently confused and required multiple verbal cues for safety. We discussed this with the patient and her son and it was determined that she would be best served by being in a 24-hour supervised setting. The following levels of functional competence are to be considered preliminary information. The reader is encouraged to refer to actual therapy notes and reports for specific details. The patient was followed by physical therapy while on acute inpatient rehabilitation. At the conclusion of her stay, the following functional competencies were identified: She was able to ambulate with a front-wheeled walker and standby assist level 199 feet. Car transfers were performed with standby assistance and transfers were with standby assistance. The patient was followed by occupational therapy while on acute inpatient rehabilitation. At the conclusion of her stay, the following functional competencies were identified: Grooming was performed to standby assistance. Bathing required moderate assistance. She was able to perform upper body dressing with standby assistance and lower body dressing with moderate to maximum assistance. Transfers for occupational therapy were with minimum assistance. The patient was felt to be medically stable for transfer. She was unable to return to her independent living apartment due to reduced cognition. She was pleasant but confused. She required multiple verbal cues. For this reason she is transferred to [facility] skilled care for continued monitoring of the wound as well as physical therapy and occupational therapy. A prescription for tramadol 50 mg #40 was provided at the time of dismissal. Hospital course: Impression S/P ORIF right hip fracture. Postoperative anemia. 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 Lucas for ongoing rehabilitation Into need to monitor blood counts carefully. His patient did require 1 unit packed red blood cell transfusion postoperatively. Today, hemoglobin, down 7.3. Will recheck tomorrow morning and transfuse if </= 7 Monitor blood pressure, continue on Inderal Senna, Colace, milk of mag, MiraLAX for postoperative bowel motivation. Tramadol and Tylenol for postoperative pain control Lovenox Subcutaneous daily for DVT prophylaxis. Full anticoagulation is contraindicated given beta-type amyloid angiitis Hospitalist services will continue to follow patient medically manage existing comorbidities during her stay on the IRU unit. Time of discharge medical care will return to PCP, Dr. Pereira 10/11 Increasing confusion though has intermittent confusion at baseline. Will check labs in am; obtain urine sample. If cognition does not improve we may consider psych consult and/or RAUL eval prior to discharge, if she is stable for discharge home. Time spent with patient: greater than 35 minutes Resuscitation Status: Full Code Discharge Plan - Med Rec/Dispo Referrals/Follow Up: Danny Logan MD [Physician] - 2 Weeks (Dr. Jozef Logan on 10/27/17 at 2:15 pm for Post-Op follow-up. ) Drew Pereira MD [Primary Care Provider] - 2 Weeks (f/u 1-2 weeks after discharge from SNU. ) Flor Instructions: Fall Prevention (DC) Prescriptions: New Ferrous Gluconate [Fergon] 324 mg PO WB tab Tramadol [Ultram] 50 mg PO Q6H PRN #40 tab PRN Reason: Pain Continue Omeprazole Magnesium [Prilosec Otc] 20 mg PO ACB #0 Levothyroxine Sodium 25 mcg PO ACB #0 Mirtazapine [Remeron] 7.5 mg PO HS Melatonin 5 mg PO HS Sertraline [Zoloft] 100 mg PO HS Loratadine [Claritin] 10 mg PO DAILY Sennosides [Senna Lax] 17.2 mg PO PRN PRN PRN Reason: Constipation Sennosides [Senna Lax] 17.2 mg PO HS Milk of Magnesia [Mom] 30 ml PO PRN PRN PRN Reason: Constipation PEG 3350 17gm PACKET [Miralax] 17 gm PO DAILY Enoxaparin [Lovenox] 40 mg SQ Q24H Bisacodyl Supp [Dulcolax] 10 mg IA PRN Calcium 600 + D [Caltrate + D] 1 tab PO BID Propranolol [Inderal] 40 mg PO BID Multivitamin [One Daily Multivitamin] 1 tab PO DAILY Cholecalciferol [Vit. D-3] 1 tab PO DAILY Changed Acetaminophen [Acetaminophen 8 Hour] 650 mg PO Q8H #30 tablet.er Discontinued Tramadol [Ultram] 50 - 100 mg PO Q6HR PRN PRN Reason: Pain Docusate Sodium [Colace] 1 cap PO BID - Disposition 03 To SNU Not [facility] (SNF) - Dismissal Complete Discharge Instructions are:: Complete
--- NOTE | 2017-10-15 11:52 | Letter to Referring Physician ---
Dear Dr. Pereira, This is a brief note to bring you up-to-date on the status of Arabella Mariscal and her stay on the acute inpatient rehabilitation unit at [facility]. As you are likely aware, this patient was admitted to [facility] on 10/04/17 for repair of right femoral fracture. Dr. Aly Logan performed open reduction internal fixation with cephalo-medullary katerin and cerclage wires to the right subtrochanteric hip fracture on 10/04/2017. She did have some acute blood loss anemia with her hemoglobin dropping from 11.7 to a low of 7.3. The patient was stabilized while on the acute level and admitted to inpatient rehabilitation unit at [facility] on October 06, 2017. While on inpatient rehabilitation, this patient was seen by occupational therapy and physical therapy and improved overall in their functional ability. We also monitored and managed the patient's acute blood loss anemia and pain management while on Acute Rehab. Please see a copy of the history and physical examination as well as discharge summary faxed separately for further details. Her final hemoglobin was 8.4 on 10/12/2017. We were hoping she could return to her independent living situation. However she displayed markedly reduced short-term memory and required multiple verbal cues for safety. For this reason, arrangements were made to transfer to [place] on 10/15/2017 for continued skilled care. Please note that a prescription for tramadol 50 mg #40 was provided to the patient at the time of dismissal. Thank you for allowing us to be involved in this nice patient's care. Please contact me directly should you have any questions regarding their stay on the inpatient rehabilitation unit. Sincerely, Mckay Lucas M.D.
== END 2017-10-15 14:30 | DRG 559 ==
PROVIDERS: ADMIT Internal Medicine; ATTEND Internal Medicine